=== PATIENT | male | born 1960 | race Hispanic/Latino ===

== ENCOUNTER 2019-01-19 09:11 | Inpatient (IN) | payer OTHER ==
[~2019-01-19] VITALS: Ht 170.2 cm; Wt 68.9 kg
[2019-01-19] MEDS ORDERED: SODIUM CHLORIDE 0.9% 1000ML 1,000 ML IV STA (09:23)
[2019-01-19] MEDS ORDERED: ONDANSETRON HCL INJ 2MG/ML 2ML 2 MG/ML VIAL IV STA (09:23)
[2019-01-19] MEDS ORDERED: MORPHINE SULFATE 2 MG/ML SYR 1ML IV STA (09:23)
[2019-01-19] MEDS ORDERED: PANTOPRAZOLE 40 MG 10ML VIAL IV STA (09:23)
[2019-01-19 09:52] LABS: BASOPHILS # (AUTO) 0.1 (0.0-0.1); BASOPHILS % 0.4 % (0.0-1.0); EOSINOPHILS # (AUTO) 0.1 (0.0-0.4); EOSINOPHILS % 0.4 % (0.0-6.0); HEMATOCRIT 32.8 % (38.2-49.6); HEMOGLOBIN 9.1 g/dL (14.0-18.0); LYMPHOCYTES # (AUTO) 0.6 (1.0-3.2); LYMPHOCYTES % 4.9 % (18.0-39.1); MEAN CORPUSCULAR HEMOGLOBIN 17.2 pg (28-32); MEAN CORPUSCULAR HGB CONC 27.7 g/dL (31-35); MEAN CORPUSCULAR VOLUME 62.1 fL (81-99); MONOCYTES # (AUTO) 0.9 (0.2-0.8); MONOCYTES % 7.3 % (4.4-11.3); NEUTROPHILS % 86.6 % (38.7-80.0); PLATELET COUNT 989 x10e3/uL (140-360); RED BLOOD COUNT 5.28 x10e6/uL (4.3-5.7)
--- NOTE | 2019-01-19 10:07 | Diagnostic Imaging Report ---
EXAMINATION: CHEST SINGLE (PORTABLE) INDICATION: Pain COMPARISON: None FINDINGS: LINES/TUBES:None LUNGS:The lungs are well-inflated. No focal consolidation or pulmonary edema. PLEURA:No pleural effusion or pneumothorax. MEDIASTINUM:The cardiomediastinal silhouette appears normal in size and shape. BONES/SOFT TISSUES:No acute osseous injury. ABDOMEN:No free air under the diaphragm. IMPRESSION: No focal pneumonia or pulmonary edema. Signed by: Hailey Remy MD on 01/19/2019 10:03 AM
[2019-01-19 10:10] LABS: BILIRUBIN,URINE SMALL (NEGATIVE); CLARITY,URINE SL CLOUDY (CLEAR); COLOR,URINE YELLOW (YELLOW); KETONES,URINE NEGATIVE (NEGATIVE); LEUKOCYTE ESTERASE ,URINE NEGATIVE (NEGATIVE); NITRITE,URINE NEGATIVE (NEGATIVE); PROTEIN,URINE DIPSTICK 1+ (NEGATIVE); URINE UROBILINOGEN 0.2 mg/dL (0.2 - 1)
[2019-01-19 10:11] LABS: ALBUMIN 3.4 g/dL (3.5-5.0); ALBUMIN/GLOBULIN RATIO 0.7 (0.8-2.0); ANION GAP 17.1 mmol/L (8-16); CALCIUM 8.9 mg/dL (8.4-10.2); CREATININE, SERUM 1.37 mg/dL (0.72-1.25); MAGNESIUM 2.2 MG/DL (1.3-2.1); POTASSIUM 4.1 mmol/L (3.5-5.1)
[2019-01-19 10:17] LABS: CREATINE KINASE MB 0.8 ng/mL (0-5.0)
[2019-01-19 10:20] LABS: INR 1.2; PROTHROMBIN TIME 15.8 seconds (11.9-14.5)
[2019-01-19 10:21] LABS: PARTIAL THROMBOPLASTIN TIME 45.3 seconds (23.8-35.5)
[2019-01-19 10:31] LABS: BACTERIA,URINE MANY /HPF; RBC,URINE 0-5 /HPF (0-5); WBC,URINE (MAN) 0-5 /HPF (0-5)
[2019-01-19 10:32] LABS: AMORPHOUS SEDIMENT,URINE FEW (FEW); EPITHELIAL CELLS,URINE FEW /LPF; MUCUS,URINE FEW (RARE)
--- NOTE | 2019-01-19 11:04 | Diagnostic Imaging Report ---
EXAM: Right upper quadrant abdominal ultrasound INDICATION: Right upper quadrant pain COMPARISON: None. TECHNIQUE: Transverse and longitudinal images of the right upper quadrant abdomen were obtained FINDINGS: Liver: Size: 13.4 cm in the right midclavicular line, normal Appearance: Normal echogenicity, smooth contour Mass: No focal masses Gallbladder: Sludge and gallstones in the gallbladder. No pericholecystic fluid. Negative sonographic Son's sign. Gallbladder wall measures 3.8 mm Bile Ducts: Intrahepatic Ducts: No dilatation Extrahepatic Ducts: Common bile duct measures 0.3cm, no dilatation Pancreas: Not seen due to overlying bowel gas. Kidney: The right kidney measures 9.4 cm without evidence of hydronephrosis or stone. Vessels: Aorta: Not seen due to overlying bowel gas. Inferior Vena Cava: Visualized portions are normal Main Portal Vein: 0.9 cm, normal size with hepatopetal flow. Free Fluid: No ascites or pleural effusion IMPRESSION: Cholelithiasis and gallbladder sludge. No specific sonographic evidence of cholecystitis. Signed by: Hailey Remy MD on 01/19/2019 11:01 AM
--- OUTSIDE RECORDS SUMMARY | 2019-01-19 12:32 | XMS REPORT ---
Author Author [facility] Address Unknown Phone Unavailable Care Team Providers Care Seafood Manager Name Role Phone Pablo GRAVES Unavailable Unavailable Problems This patient has no known problems. Allergies, Adverse Reactions, Alerts This patient has no known allergies or adverse reactions. Medications This patient has no known medications. Results Test Description Test Time Test Comments Text Results Atomic Results Result Comments US GALLBLADDER 2019-01-19 10:58:00 [place] [address] Patient Name: LUCAS BAIG MR #: [id number] : 1960 Age/Sex: 58/M Req #: [id number] [facility] Physician: Ordered by: CALIN GRAVES MD Report #: [id number] Location: ER Room/Bed: Procedure: [id number] US/US GALLBLADDER Exam Date: 01/19/19 Exam Time: 1019 REPORT STATUS: Signed EXAM: Right upper quadrant abdominal ultrasound INDICATI ON: Right upper quadrant pain COMPARISON: None. TECHNIQUE: Transverse and longitudinal images of the right upper quadrant abdomen were obtained FINDINGS: Liver: Size: 13.4 cm in the right midclavicular line, normal Appearance: Normal echogenicity, smooth contour Mass: No focal masses Gallbladder: Sludge and gallstones in the gallbladder. No pericholecystic fluid. Negative sonographic Son's sign. Gallbladder wall measures 3.8 mm Bile Ducts: Intrahepatic Ducts: No dilatation Extrahepatic Ducts: Common bile duct measures 0.3cm, no dilatation Pancreas: Not seen due to overlying bowel gas. Kidney: The right kidney measures 9.4 cm without evidence of hydronephrosis or stone. Vessels: Aorta: Not seen due to overlying bowel gas. Inferior Vena Cava: Visualized portions are normal Main Portal Vein: 0.9 cm, normal size with hepatopetal flow. Free Fluid: No ascites or pleural effusion IMPRESSION: Cholelithiasis and gallbladder sludge. No specific sonographic evidence of cholecystitis. Signed by: Marianna Jovel MD on 01/19/2019 11:01 AM Dictated By: MARIANNA JOVEL MD 110 Transcribed By: JANNET on 01/19/191100 COPY TO: CALIN GRAVES MD CHEST SINGLE (PORTABLE) 2019-01-19 10:03:00 [place] [address] Patient Name: LUCAS BAIG MR #: [id number] : 1960 Age/Sex: 58/M Req #: [id number] Physician: Ordered by: CALIN GRAVES MD Report #: [id number] Location: ER Room/Bed: Procedure: [id number] DX/CHEST SINGLE (PORTABLE) Exam Date: 01/19/19 Exam Time: 924 REPORT STATUS: Signed EXAMINATION: CHEST SINGLE (PORTABLE) INDIC ATION: Pain COMPARISON: None FINDINGS: LINES/TUBES:None LUNGS:The lungs are well-inflated. No focal consolidation or pulmonary edema. PLEURA:No pleural effusion or pneumothorax. MEDIASTINUM:The cardiomediastinal silhouette appears normal in size and shape. BONES/SOFT TISSUES:No acute osseous injury. ABDOMEN:No free air under the diaphragm. IMPRESSION: No focal pneumonia or pulmonary edema. Signed by: Marianna Jovel MD on 01/19/2019 10:03 AM Dictated By: MARIANNA JOVEL MD 1003 Transcribed By: JANNET on 01/19/19 1003 COPY TO: CALIN GRAVES MD
[2019-01-19] MEDS: SODIUM CHLORIDE 0.9% 1000ML 1,000 ML IV SCH ×2 (13:00→22:30)
[2019-01-19] MEDS: CEFEPIME 1GM/NS 0.9% 50 ML 50 ML IV SCH (13:00)
[2019-01-19] MEDS: ONDANSETRON HCL INJ 2MG/ML 2ML 2 MG/ML VIAL IV PRN ×2 (13:04→22:00)
[2019-01-19] MEDS: MORPHINE SULFATE INJ 4 MG/ML INJ 1ML IV PRN ×2 (13:04→22:00)
[2019-01-19 13:50] VITALS: BP 134/90
--- NOTE | 2019-01-19 14:40 | NUR ---
Recvd patient from ER, AAOx3, Resp even and unlabored, denies any chest pain or SOB, oriented to room and staffs, encouraged to use call light for any help, family at bed side, will monitor
[2019-01-19 15:21] VITALS: BP 126/84
[2019-01-19 15:41] VITALS: BP 126/84
[2019-01-19 15:57] VITALS: BP 126/84
[2019-01-19] MEDS ORDERED: FENTANYL CITRATE/PF 100MCG/2 ML INJ ONE (18:54)
[2019-01-19] MEDS ORDERED: MIDAZOLAM HCL 2 MG/2 ML VIAL ONE (18:54)
[2019-01-19 18:57] LABS: CREATINE KINASE 17 IU/L (30-200)
--- NOTE | 2019-01-19 19:05 | NUR ---
BS rounds completed with morning nurse. Pt alert and oriented to name. c/o abd pain, getting ready to go to [place] for HIDA scan. Family at BS. Will continue to monitor.
[2019-01-19 20:41] VITALS: BP 124/82
[2019-01-19 21:00] VITALS: BP 124/82
--- NOTE | 2019-01-19 21:30 | NUR ---
RETURNED FROM [place] HAVING HIDA SCAN. MEDICATED WITH MORPHINE FOR 10/[address] Loretta GERMAN AWARE OF CONSULT, WILL VISIT PT IN AM.
--- NOTE | 2019-01-19 21:34 | Diagnostic Imaging Report ---
Hepatobiliary Scan with Gallbladder Ejection Fraction Clinical information: Abdominal pain; cholelithiasis Technique: Following intravenous administration of 6.0 millicuries of Tc-99m mebrofenin, dynamic images of the abdomen in the anterior projection were obtained through 60 minutes. Sincalide (CCK analog) 1.5 micrograms was administered intravenously over 30 minutes with additional imaging for determination of gallbladder ejection fraction. Discussion: Perfusion of the liver is normal. Extraction of tracer by the liver parenchyma is mildly prolonged. Tracer appears promptly within the biliary tract. The gallbladder begins to fill by 22 minutes post injection of tracer and fills slowly but adequately. Tracer is seen in the small bowel by 36 minutes. The gallbladder ejection fraction with sincalide is 9% (normal greater than 40%). Impression: 1. Filling of the gallbladder excludes acute cystic duct obstruction/acute cholecystitis. 2. The decreased gallbladder ejection fraction of 9% supports the clinical diagnosis of chronic cholecystitis/gallbladder dyskinesia. Signed by: Dr. Jenna Ramirez M.D. on 01/19/2019 9:31 PM
[2019-01-20] VITALS (15 sets, daily range): BP systolic 98–138; BP diastolic 63–95
--- NOTE | 2019-01-20 | NUR ---
SPOKE WITH DR. Scar JETER REGARDING PAIN CONTROL. PT ABD PAIN INCREASED TO 10/10 ONE HR AFTER MORPHINE ADMIN. DR. Scar JETER D/C MORPHINE AND STARTED DILAUDID 2MG Q 3HRS, CONSULTED DR. Carolyne JETER, AND STARTED PROTONIX 40MG INJ. PT CONTINUES TO BE NPO. FAMILY AT BEDSIDE. CALL SURESH WITHIN REACH. WILL CONTINUE TO MONITOR.
[2019-01-20] MEDS: CEFEPIME 1GM/NS 0.9% 50 ML 50 ML IV SCH ×2 (00:15→12:06)
[2019-01-20] MEDS: HYDROMORPHONE 2MG/ML 2 MG/ML ML IV PRN ×3 (03:45→08:51)
[2019-01-20 05:56] LABS: BASOPHILS # (AUTO) 0.1 (0.0-0.1); BASOPHILS % 0.3 % (0.0-1.0); EOSINOPHILS % 0.1 % (0.0-6.0); HEMATOCRIT 36.2 % (38.2-49.6); HEMOGLOBIN 9.5 g/dL (14.0-18.0); LYMPHOCYTES # (AUTO) 0.4 (1.0-3.2); LYMPHOCYTES % 1.6 % (18.0-39.1); MEAN CORPUSCULAR HEMOGLOBIN 16.8 pg (28-32); MEAN CORPUSCULAR HGB CONC 26.2 g/dL (31-35); MEAN CORPUSCULAR VOLUME 64.1 fL (81-99); MONOCYTES # (AUTO) 1.8 (0.2-0.8); MONOCYTES % 6.5 % (4.4-11.3); NEUTROPHILS # (AUTO) 24.2 (2.1-6.9); RED BLOOD COUNT 5.65 x10e6/uL (4.3-5.7)
[2019-01-20 06:16] LABS: CREATINE KINASE 15 IU/L (30-200)
[2019-01-20 06:23] LABS: PLATELET COUNT 1146 x10e3/uL (140-360)
[2019-01-20 06:34] LABS: FERRITIN 5.12 ng/mL (21.81-274.66)
[2019-01-20 06:51] LABS: FOLATE 9.7 ng/mL (7.0-15.4)
--- NOTE | 2019-01-20 07:10 | NUR ---
PATIENT IS AWAKE AND IN STABLE CONDITION WITH NO S/S OF RESPIRATORY DISTRESS. PATIENT C/O 5/10 ABD PAIN BUT DOES NOT WANT PAIN MEDICATION AT THIS TIME. IFV FLUIDS INFUSING. PRESENT IN ROOM. PATIENT IS CURRENTLY NPO. CALL LIGHT IS WITHIN REACH, PATIENT INSTRUCTED TO CALL FOR ASSISTANCE NEEDED.
[2019-01-20] MEDS: SODIUM CHLORIDE 0.9% 1000ML 1,000 ML IV SCH (07:26)
[2019-01-20 07:50] LABS: ANION GAP 20.1 mmol/L (8-16); CALCIUM 8.2 mg/dL (8.4-10.2); CREATININE, SERUM 1.3 mg/dL (0.72-1.25); POTASSIUM 5.1 mmol/L (3.5-5.1)
[2019-01-20 07:52] LABS: BAND NEUTROPHILS % (MANUAL) 7 %; LYMPHOCYTES % (MANUAL) 3 % (19-48); MONOCYTES % (MANUAL) 10 % (3.4-9.0); NEUTROPHILS % (MANUAL) 80 % (40-74)
[2019-01-20 07:53] LABS: PLATELET ESTIMATE MARKEDLY INCREASED
[2019-01-20 07:54] LABS: ELLIPTOCYTE, RBC SLIGHT; HYPOCHROMASIA MODERATE; OVALOCYTES FEW; RBC MORPHOLOGY COMMENT ABNORMAL
[2019-01-20 07:55] LABS: ANISOCYTOSIS MODERATE; POIKILOCYTOSIS MODERATE
[2019-01-20 07:56] LABS: PLATELET MORPHOLOGY COMMENT MODERATE LARGE
[2019-01-20] MEDS ORDERED: DIATRIZOATE MEGL/DIATRIZOA SOD 30 ML BTL PO ONE (08:42)
[2019-01-20] MEDS: ONDANSETRON HCL INJ 2MG/ML 2ML 2 MG/ML VIAL IV PRN (08:47)
[2019-01-20] MEDS: PANTOPRAZOLE 40 MG 10ML VIAL IV SCH ×2 (08:52→20:37)
[2019-01-20] MEDS ORDERED: PANTOPRAZOLE 40 MG 10ML VIAL IV SCH ×2 (09:00)
--- NOTE | 2019-01-20 11:42 | Diagnostic Imaging Report ---
EXAM: CT Abdomen and Pelvis WITHOUT intravenous contrast INDICATION: Abdominal pain, right lower quadrant. COMPARISON: Right upper quadrant ultrasound of 01/19/2019 TECHNIQUE: Abdomen and pelvis were scanned utilizing a multidetector helical scanner from the lung base to the pubic symphysis without administration of IV contrast. Coronal and sagittal reformations were obtained. IV CONTRAST: None ORAL CONTRAST: None COMPLICATIONS: None RADIATION DOSE: Total DLP: 299.7 mGy*cm Dose modulation, iterative reconstruction, and/or weight based adjustment of the mA/kV was utilized to reduce the radiation dose to as low as reasonably achievable. FINDINGS: LOWER THORAX: Bibasilar dependent subsegmental atelectasis. HEPATOBILIARY: Nodular liver surface contour compatible with cirrhosis. No focal hepatic lesions. The gallbladder appears decompressed. Extensive abdominal portosystemic varices, not well evaluated in the absence of contrast, are compatible with portal hypertension. SPLEEN: Marked splenomegaly to 22.1 cm. PANCREAS: No focal masses or ductal dilatation. ADRENALS: No adrenal nodules. KIDNEYS/URETERS: No hydronephrosis, stones, or solid mass lesions. PELVIC ORGANS/BLADDER: Unremarkable. PERITONEUM / RETROPERITONEUM: Small volume ascites throughout the abdomen and pelvis. LYMPH NODES: No lymphadenopathy. VESSELS: Unremarkable. GI TRACT: The appendix is not well visualized, however there are inflammatory changes including fat stranding and free fluid in the right lower quadrant with adjacent loops of small bowel demonstrating wall thickening. These are likely to represent secondary findings of appendicitis. No free air or drainable abscess. BONES AND SOFT TISSUES: Unremarkable. IMPRESSION: 1. Inflammatory changes in the right lower quadrant including fat stranding, free fluid, and loops of small bowel with wall thickening likely represent secondary findings of appendicitis. No free air or drainable abscess. 2. Nodular liver surface contour compatible with cirrhosis. Abdominal portosystemic varices and massive splenomegaly to 22.1 cm are consistent with sequela of portal hypertension. 3. The gallbladder appears decompressed on this study, but is better evaluated on the recent PET upper quadrant ultrasound of 01/19/2019 which demonstrates gallstones and sludge. Signed by: Hailey Remy MD on 01/20/2019 11:39 AM
--- NOTE | 2019-01-20 12:28 | NUR ---
PATIENT OFF THE UNIT TO OR FOR PROCEDURE- PATIENT IN STABLE CONDITION WITH NO S/S OF RESPIRATORY DISTRESS. IV ANTIBIOTIC INFUSING. FAMILY PRESENT.
[2019-01-20] MEDS ORDERED: BUPIVACAINE 0.5%/EPI 30 ML SDV INJ ONE (12:55)
[2019-01-20] MEDS ORDERED: HEPARIN SOD (PORCINE) 5,000 UNIT/ML VIAL ONE (13:40)
[2019-01-20] MEDS ORDERED: HEPARIN 25,000 UNIT DRIP IV ONE (15:29)
[2019-01-20] MEDS: HEPARIN 25,000 UNIT 25,000 UNIT in DEXTROSE 5% 250ML 250 ML IV SCH (15:50)
[2019-01-20] MEDS: SODIUM CHLORIDE 0.9% 250ML IRRIG IR SCH ×3 (15:56→22:21)
[2019-01-20] MEDS: DEXTROSE 5%/LACTATED RINGERS 1,000 ML IV SCH ×2 (15:56→23:30)
[2019-01-20] MEDS: PROPOFOL IV EMULSION 10MG/ML 100 ML IV SCH (15:57)
[2019-01-20] MEDS: PIPER-TAZ 3.375 GM 50 ML IV SCH ×2 (18:06→23:30)
[2019-01-20] MEDS ORDERED: LIDOCAINE HCL 2% LOCAL INJ 5 ML SDV VIAL INJ ONE (18:32)
[2019-01-20] MEDS ORDERED: SUCCINYLCHOLINE 200 MG/10 ML SYR ONE (18:32)
[2019-01-20] MEDS ORDERED: DEXAMETHASONE SOD PHOS INJ 4 MG/ML VIAL ONE (18:32)
[2019-01-20] MEDS ORDERED: PROPOFOL IV EMULSION 10 MG/ML 20 ML VIAL ONE (18:32)
[2019-01-20] MEDS ORDERED: ONDANSETRON HCL INJ 2MG/ML 2ML 2 MG/ML VIAL ONE (18:32)
[2019-01-20] MEDS ORDERED: PHENYLEPHRINE HCL 1% 10 MG/ML VIAL ONE (18:32)
[2019-01-20] MEDS ORDERED: EPHEDRINE SULFATE INJ 50 MG/10 ML SYR ONE (18:32)
[2019-01-20] MEDS ORDERED: SEVOFLURANE INHAL SOLN 250 ML PEN BTL ONE (18:32)
[2019-01-20] MEDS: ANAGRELIDE HCL 0.5 MG CAP PO SCH ×2 (20:37→22:20)
--- NOTE | 2019-01-20 20:48 | NUR ---
@[address] GERMAN OF PTT OF 60.3. HE SAID TO KEEP THE HEPARIN AT THE SAME RATE WILL CONTINUE TO MONITOR
[2019-01-21] VITALS (22 sets, daily range): BP systolic 106–148; BP diastolic 64–94
--- NOTE | 2019-01-21 00:05 | Diagnostic Imaging Report ---
EXAMINATION: CHEST SINGLE (PORTABLE) INDICATION: Endotracheal tube placement. COMPARISON: 01/19/2019. FINDINGS: LINES/TUBES:ET tube with distal tip approximately 4.2 cm proximal to the liudmila. An NG/orogastric tube with distal portion coiled within the stomach, with distal tip not included, likely in the antrum. LUNGS:Bibasilar subsegmental atelectasis. No focal consolidation or pulmonary edema. PLEURA:No pleural effusion or pneumothorax. MEDIASTINUM:The cardiomediastinal silhouette appears normal in size and shape. BONES/SOFT TISSUES:No acute osseous injury. ABDOMEN:Hyperlucency in the left upper abdomen is nonspecific may be related to dilated bowel loops. IMPRESSION: ET tube with distal tip approximately 4.2 cm proximal to the liudmila. An NG/orogastric tube with distal portion coiled within the stomach, with distal tip not included, likely in the antrum. Signed by: Dr. Erica Reyes M.D. on 01/21/2019 12:01 AM
[2019-01-21] MEDS: HYDROMORPHONE 1MG/1ML INJ IV PRN ×5 (00:30→21:53)
[2019-01-21] MEDS ORDERED: DEXTROSE 50% SYRINGE 50 ML IV PRN (01:00)
--- NOTE | 2019-01-21 01:20 | Consultation ---
DATE OF CONSULTATION: 01/20/2019 Pulmonary Medicine Consult REASON FOR REFERRAL: Respiratory insufficiency. HISTORY OF PRESENT ILLNESS: Mr. Alvarez is a 58-year-old gentleman with respiratory insufficiency. The patient presented to [facility] on January 19, 2019. The patient had abdominal pain. Onset was 1 week previous. The patient had no recent history of any significant abdominal issues. The patient with gallbladder ultrasound showing sludge and stones. HIDA scan with 9% ejection fraction, but there was filling of the gallbladder. Abdominal pelvic CT demonstrated findings consistent with right lower quadrant inflammation, nodular liver consistent with cirrhosis, and 22.1 cm spleen. Due to extensive symptoms are not improving, the patient went for operative exploration. Exploratory laparotomy was performed with small bowel obstruction. Estimated blood loss was 100 mL. Findings include mesenteric vein thrombosis and one-half of the small bowel was being gangrenous, also some lymphadenopathy in the abdomen. The patient had other findings including platelets counts, which was 1146 upon admission. PAST MEDICAL HISTORY: Hyperlipidemia, GERD, possible fatty liver in the past. MEDICATIONS: Medication list reviewed per the chart record. ALLERGIES: IODINE. SOCIAL HISTORY: No smoking. No drinking. No drugs. The patient worked in [employer]. FAMILY HISTORY: Noncontributory to this. REVIEW OF SYSTEMS: Cannot get as he is intubated orally. OBJECTIVE: VITAL SIGNS: Afebrile, vital signs noted, reviewed per the chart record. GENERAL: In no acute distress, he awakens on ventilator on light stimuli. HEENT: Normocephalic and atraumatic. NECK: Supple. Throat midline. LUNGS: Bilateral air entry, mostly clear. CARDIOVASCULAR: S1 and S2. No murmurs, rubs, or gallops. ABDOMEN: Soft, but he is postoperative with bandage in place vertically on his abdomen. EXTREMITIES: No clubbing, no cyanosis, no edema. INTEGUMENT: No rash or purpura. LABORATORY DATA: Labs reviewed per the chart record include white count 27, hematocrit 36, platelets 114. Potassium 5.1, BUN 24, creatinine 1.3. Bicarbonate 17. INR 1.2, PTT 60. Chest radiography was clear preoperatively. Other abdominal imaging per other segments of this history. IMPRESSION AND PLAN: 1. Postoperative respiratory insufficiency. 2. Elevated creatinine, chronic kidney disease versus acute kidney injury. 3. Metabolic acidosis. 4. Possible evolving hyperkalemia. 5. 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 7. Other nonspecific abdominal lymphadenopathy. 8. Postoperative state, status post exploratory laparotomy and small bowel obstruction, small bowel resection. 9. Possible cirrhosis. 10. Massive splenomegaly. 11. Hyperlipidemia. 12. Gastroesophageal reflux disease. The patient has metabolic acidosis and possible kidney dysfunction. We will follow urine output closely. Check blood gas. Sedate him as needed. Check chest x-ray for ET tube position. Check lipid panel including triglycerides. The patient is not expected to come off ventilator today, but we will reassess. The patient for consideration of repeat surgery on Wednesday. We will consider if he gets extubated or stays intubated in the meantime. Thank you very much, Dr. Moura and Dr. Lloyd, for allowing me a chance to participate in the care of Mr. Alvarez. Please call for questions. MD JESUS Bustillos/CYNTHIA /[id number]
[2019-01-21] MEDS: PROPOFOL IV EMULSION 10MG/ML 100 ML IV SCH ×3 (02:35→21:48)
[2019-01-21] MEDS: SODIUM CHLORIDE 0.9% 250ML IRRIG IR SCH ×6 (04:10→23:47)
[2019-01-21 05:12] LABS: BASOPHILS % 0.1 % (0.0-1.0); HEMATOCRIT 26.9 % (38.2-49.6); HEMOGLOBIN 7.3 g/dL (14.0-18.0); LYMPHOCYTES # (AUTO) 0.7 (1.0-3.2); LYMPHOCYTES % 5.1 % (18.0-39.1); MEAN CORPUSCULAR HEMOGLOBIN 17.1 pg (28-32); MEAN CORPUSCULAR HGB CONC 27.1 g/dL (31-35); MEAN CORPUSCULAR VOLUME 63.1 fL (81-99); MONOCYTES # (AUTO) 1.8 (0.2-0.8); MONOCYTES % 12.4 % (4.4-11.3); NEUTROPHILS % 81.7 % (38.7-80.0); PLATELET COUNT 456 x10e3/uL (140-360); RED BLOOD COUNT 4.26 x10e6/uL (4.3-5.7); RED CELL DISTRIBUTION WIDTH 19.2 % (11.7-14.4)
[2019-01-21] MEDS: PIPER-TAZ 3.375 GM 50 ML IV SCH ×4 (05:32→23:48)
[2019-01-21] MEDS: INSULIN LISPRO 100 UNIT/1 ML 3ML VIAL SQ SCH ×4 (05:32→23:48)
[2019-01-21 05:40] LABS: CHOL/HDL RATIO 3.9 (3.9-4.7)
[2019-01-21 05:44] LABS: ALBUMIN 2.2 g/dL (3.5-5.0); ALBUMIN/GLOBULIN RATIO 0.7 (0.8-2.0); CALCIUM 7.5 mg/dL (8.4-10.2); CREATININE, SERUM 1.34 mg/dL (0.72-1.25)
[2019-01-21 06:12] LABS: ABG HCO3 20 mmol/L (23-28); ABG PCO2 33 mmHg (41-51); ABG PH 7.39 (7.31-7.41); ABG PO2 116 mmHg (80-105)
--- NOTE | 2019-01-21 06:52 | NUR ---
NOTIFIED DR GRUBBS ANSWERING SERVICE OF THE CONSULT
[2019-01-21 07:14] LABS: ANISOCYTOSIS SLIGHT; BAND NEUTROPHILS % (MANUAL) 1 %; ELLIPTOCYTE, RBC MODERATE; LYMPHOCYTES % (MANUAL) 6 % (19-48); MONOCYTES % (MANUAL) 6 % (3.4-9.0); NEUTROPHILS % (MANUAL) 87 % (40-74); POIKILOCYTOSIS SLIGHT
[2019-01-21 07:15] LABS: HYPOCHROMASIA MODERATE; PLATELET ESTIMATE ADEQUATE; POLYCHROMASIA FEW; RBC MORPHOLOGY COMMENT ABNORMAL; TEAR DROP CELLS FEW
[2019-01-21 07:16] LABS: TOXIC GRANULATION SLIGHT
[2019-01-21] MEDS ORDERED: HEPARIN SOD/SOD CHLORIDE 1,000 ML IV SCH ×3 (08:45→09:00)
[2019-01-21] MEDS: ANAGRELIDE HCL 0.5 MG CAP PO SCH ×4 (09:00→20:44)
[2019-01-21] MEDS: PANTOPRAZOLE 40 MG 10ML VIAL IV SCH ×2 (09:00→20:44)
[2019-01-21] MEDS: IRON SUCROSE 100 MG in SODIUM CHLORIDE 0.9% 100 ML 100 ML IV SCH (09:00)
[2019-01-21] MEDS: LACTATED RINGER'S 1,000 ML IV SCH ×3 (10:31→19:34)
[2019-01-21 11:30] LABS: ANION GAP 10.9 mmol/L (8-16); BLOOD UREA NITROGEN 26 mg/dL (7-26); BUN/CREATININE RATIO 21 (6-25); CALCIUM 7.6 mg/dL (8.4-10.2); CARBON DIOXIDE 23 mmol/L (22-29); CHLORIDE 113 mmol/L (98-107); CREATININE, SERUM 1.21 mg/dL (0.72-1.25); EST GLOMERULAR FILTRATION RATE > 60 ML/MIN (60-); GLUCOSE 134 mg/dL (74-118); MAGNESIUM 2.1 MG/DL (1.3-2.1); PHOSPHORUS 1.4 MG/DL (2.3-4.7); POTASSIUM 3.9 mmol/L (3.5-5.1); SODIUM 143 mmol/L (136-145)
--- NOTE | 2019-01-21 13:00 | NUR ---
Nutrition Intervention Note RD Recommendation(s) for Physician: Place central line and start standard PN 30% dextrose/8.5% amino acids at 70ml/hr Plan of Care: RD following, monitoring for tolerance and adequacy Nutrition reason for involvement: Nutrition Risk Trigger- [facility] RD Assessment Initial encounter with Pt. Pt was not able to provide a nutrition Hx due to being sedated and orally intubated on mechanical ventilation. Daughter present. 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 No known food allergies. Cholelithiasis, SBO/gangrene of small bowel, S/P exploratory laparotomy with cholecystectomy, appendectomy, and small bowel resection. NGT in place. Principal Problems/Diagnoses: Anemia, cholelithiasis, renal insufficiency PMH:GERD, hyperlipidemia, Fatty Liver. GI: unable to assess Skin:surgical abdominal wound Labs: (01/21/19) Biochemical data reviewed Meds: (01/21/19) Lactated Ringers at 125ml/hr, propofol provides 1.1 sesar/ml infused Ht:67 in. Wt:148.19lbs BMI:23.2kg/M2 IBW:148lbs Malnutrition Evaluation (01/21/19) The patient does not meet criteria for a specified degree of malnutrition at this time. Will re-evaluate at follow-up as appropriate. Nutrition Prescription (Diet Order):NPO Estimated Nutritional Needs: 1684 2020 calories/day ( 25-30kcal/kg/ BW) 67-101g protein/day ( 1-1.5g pro/kg/BW) Diet Adequacy: Not meeting calorie needs, Not meeting protein needs) Diet Education Needs Assessment: Diet education not indicated Nutrition Care Level: High Nutrition Diagnosis: Altered GI function related to cholelithiasis as evidenced by SBO/Exploratory laparotomy. Goal: Patient will meet 75-100% of estimated needs by follow up Progress: Not Progressing Interventions: Composition, Rate, Route, IVF, Prescription medications, Monitoring/Evaluation: Total energy intake, Total protein intake, Formula/Solution, IVF, Prescription medication, Weight change. Signed: Celestino Martinez RD, LD, [facility]
--- NOTE | 2019-01-21 15:10 | NUR ---
Pulmonary Medicine DATE OF ENCOUNTER: 01/21/2019 SUBJECTIVE: On ventilator [facility] 14/450/40/5. pk 19, rr 23, MV 10 L/min intubated orally with 7.5 ETT, 22 cm propofol 70/hr. Glucose control is fair. UOP sustained, 750/shift already heparin IV REVIEW OF SYSTEMS: Cannot get as he is intubated orally. OBJECTIVE: VITAL SIGNS: vital signs noted, reviewed per the chart record. GENERAL: RASS -2 / better, no distress HEENT: Normocephalic and atraumatic. NECK: Supple. Throat midline. LUNGS: Bilateral air entry, mostly clear. CARDIOVASCULAR: S1 and S2. No murmurs, rubs, or gallops. ABDOMEN: Soft, but he is postoperative with bandage in place vertically on his abdomen. EXTREMITIES: No clubbing, no cyanosis, no edema. INTEGUMENT: No rash or purpura. LABORATORY DATA: 3.9 k , co2 23, cr 1.21, wbc 14.6, hct 26.9, plt 456, phos 1.4 Chest radiography with clear lungs. ETT 5.5 cm above liudmila IMPRESSION AND PLAN: 1. Postoperative respiratory insufficiency. 2. Elevated creatinine, chronic kidney disease versus acute kidney injury. Stable 3. Metabolic acidosis, improved 4. Mild toxic/metabolic encephalopathy 5. 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 7. Other nonspecific abdominal lymphadenopathy. 8. Postoperative state, s/p exploratory laparotomy and small bowel resection. 9. Possible cirrhosis. 10. Massive splenomegaly. 11. Hyperlipidemia. 12. Gastroesophageal reflux disease. 13. thrombocytosis 14. low phos Continue sedation to goal ~RASS -2, d/w nursing. Leverage other medications, not just propofol. Follow UOP, better As patient is pulling at his ETT, we will advance it slightly and consider mechanical restraints Continue intubated state, ventilator support Heparin IV per designated Glucose control Thank you very much, Dr. Moura and Dr. Lloyd, for allowing me a chance to participate in the care of Mr. Alvarez. Please call for questions.
[2019-01-21] MEDS: HEPARIN 25,000 UNIT 25,000 UNIT in DEXTROSE 5% 250ML 250 ML IV SCH (15:15)
[2019-01-21] MEDS ORDERED: POTASSIUM PHOSPHATE 20 MM in SODIUM CHLORIDE 0.9% 250ML 250 ML IV ONE (16:30)
[2019-01-21 16:52] LABS: BASOPHILS % 0.1 % (0.0-1.0); HEMATOCRIT 26.6 % (38.2-49.6); LYMPHOCYTES # (AUTO) 0.8 (1.0-3.2); LYMPHOCYTES % 5.5 % (18.0-39.1); MEAN CORPUSCULAR HEMOGLOBIN 17.1 pg (28-32); MEAN CORPUSCULAR HGB CONC 27.1 g/dL (31-35); MONOCYTES # (AUTO) 1.2 (0.2-0.8); MONOCYTES % 9.1 % (4.4-11.3); NEUTROPHILS # (AUTO) 11.5 (2.1-6.9); NEUTROPHILS % 84.4 % (38.7-80.0); PLATELET COUNT 388 x10e3/uL (140-360); RED BLOOD COUNT 4.22 x10e6/uL (4.3-5.7); RED CELL DISTRIBUTION WIDTH 19.3 % (11.7-14.4)
[2019-01-21 16:57] LABS: HEMOGLOBIN 7.2 g/dL (14.0-18.0)
[2019-01-21 18:23] LABS: ANION GAP 11.8 mmol/L (8-16); BLOOD UREA NITROGEN 23 mg/dL (7-26); BUN/CREATININE RATIO 20 (6-25); CALCIUM 7.6 mg/dL (8.4-10.2); CARBON DIOXIDE 23 mmol/L (22-29); CHLORIDE 112 mmol/L (98-107); CREATININE, SERUM 1.14 mg/dL (0.72-1.25); EST GLOMERULAR FILTRATION RATE > 60 ML/MIN (60-); GLUCOSE 116 mg/dL (74-118); POTASSIUM 3.8 mmol/L (3.5-5.1); SODIUM 143 mmol/L (136-145)
[2019-01-21 20:47] LABS: LYMPHOCYTES % (MANUAL) 1 % (19-48); MONOCYTES % (MANUAL) 15 % (3.4-9.0); NEUTROPHILS % (MANUAL) 84 % (40-74)
[2019-01-21 20:52] LABS: ANISOCYTOSIS SLIGHT
[2019-01-21 20:56] LABS: PLATELET ESTIMATE ADEQUATE
[2019-01-21 20:58] LABS: HYPOCHROMASIA MODERATE; PLATELET MORPHOLOGY COMMENT FEW GIANT
[2019-01-22] VITALS (26 sets, daily range): BP systolic 107–129; BP diastolic 59–76
[2019-01-22] MEDS: HYDROMORPHONE 1MG/1ML INJ IV PRN ×3 (01:54→16:35)
[2019-01-22] MEDS: SODIUM CHLORIDE 0.9% 250ML IRRIG IR SCH ×6 (03:20→23:19)
[2019-01-22 05:15] LABS: BASOPHILS % 0.3 % (0.0-1.0); EOSINOPHILS % 0.4 % (0.0-6.0); HEMATOCRIT 23.5 % (38.2-49.6); LYMPHOCYTES # (AUTO) 0.8 (1.0-3.2); LYMPHOCYTES % 7.5 % (18.0-39.1); MEAN CORPUSCULAR HEMOGLOBIN 17.2 pg (28-32); MEAN CORPUSCULAR HGB CONC 27.2 g/dL (31-35); MONOCYTES # (AUTO) 0.8 (0.2-0.8); MONOCYTES % 7.6 % (4.4-11.3); NEUTROPHILS # (AUTO) 8.3 (2.1-6.9); NEUTROPHILS % 82.8 % (38.7-80.0); PLATELET COUNT 369 x10e3/uL (140-360); RED BLOOD COUNT 3.73 x10e6/uL (4.3-5.7); RED CELL DISTRIBUTION WIDTH 19.1 % (11.7-14.4)
[2019-01-22] MEDS: INSULIN LISPRO 100 UNIT/1 ML 3ML VIAL SQ SCH ×3 (06:00→18:00)
[2019-01-22 06:08] LABS: HEMOGLOBIN 6.4 g/dL (14.0-18.0)
[2019-01-22 06:17] LABS: PHOSPHORUS 2.3 MG/DL (2.3-4.7)
[2019-01-22] MEDS: PIPER-TAZ 3.375 GM 50 ML IV SCH ×3 (06:29→18:06)
--- NOTE | 2019-01-22 08:20 | Diagnostic Imaging Report ---
EXAMINATION: CHEST SINGLE (PORTABLE) INDICATION: Endotracheal tube placement. COMPARISON: 01/19/2019. FINDINGS: LINES/TUBES:ET tube with distal tip approximately 3.0 cm proximal to the liudmila. An NG/orogastric tube with distal portion coiled within the stomach, with distal tip not included, likely in the antrum. LUNGS:Bibasilar subsegmental atelectasis. No focal consolidation or pulmonary edema. PLEURA: Bilateral small pleural effusions. No pneumothorax. MEDIASTINUM:The cardiomediastinal silhouette appears normal in size and shape. BONES/SOFT TISSUES:No acute osseous injury. ABDOMEN:Hyperlucency in the left upper abdomen is nonspecific may be related to dilated bowel loops. IMPRESSION: Stable examination. Signed by: Dr. Erica Reyes M.D. on 01/22/2019 8:16 AM
[2019-01-22] MEDS ORDERED: HEPARIN 25,000 UNIT DRIP IV ONE ×2 (08:29→08:40)
[2019-01-22 08:33] LABS: ALANINE AMINOTRANSFERASE 12 IU/L (0-55); ALBUMIN/GLOBULIN RATIO 0.6 (0.8-2.0); ALKALINE PHOSPHATASE 90 IU/L (40-150); AMYLASE 37 U/L (25-125); BLOOD UREA NITROGEN 22 mg/dL (7-26); BUN/CREATININE RATIO 20 (6-25); CALCIUM 7.4 mg/dL (8.4-10.2); CARBON DIOXIDE 23 mmol/L (22-29); CHLORIDE 113 mmol/L (98-107); CREATININE, SERUM 1.08 mg/dL (0.72-1.25); EST GLOMERULAR FILTRATION RATE > 60 ML/MIN (60-); GLUCOSE 102 mg/dL (74-118); SODIUM 143 mmol/L (136-145)
[2019-01-22] MEDS: PANTOPRAZOLE 40 MG 10ML VIAL IV SCH ×2 (09:33→21:32)
[2019-01-22] MEDS: IRON SUCROSE 100 MG in SODIUM CHLORIDE 0.9% 100 ML 100 ML IV SCH (09:33)
[2019-01-22] MEDS: ANAGRELIDE HCL 0.5 MG CAP PO SCH ×4 (09:33→21:32)
[2019-01-22] MEDS ORDERED: NOREPINEPHRINE 8 MG/D5W 250 ML 250 ML ONE (10:42)
[2019-01-22 12:59] LABS: BAND NEUTROPHILS % (MANUAL) 6 %; EOSINOPHILS % (MANUAL) 1 % (0-7); LYMPHOCYTES % (MANUAL) 12 % (19-48); MONOCYTES % (MANUAL) 7 % (3.4-9.0)
[2019-01-22 13:00] LABS: NEUTROPHILS % (MANUAL) 74 % (40-74); PLATELET ESTIMATE SLIGHTLY INCREASED; PLATELET MORPHOLOGY COMMENT NORMAL; POLYCHROMASIA FEW
[2019-01-22 13:01] LABS: HYPOCHROMASIA SLIGHT; OVALOCYTES FEW; RBC MORPHOLOGY COMMENT ABNORMAL; SCHISTOCYTES FEW
[2019-01-22] MEDS: LACTATED RINGER'S 1,000 ML IV SCH ×2 (14:03→16:35)
[2019-01-22] MEDS: HEPARIN 25,000 UNIT 25,000 UNIT in DEXTROSE 5% 250ML 250 ML IV SCH (15:15)
--- NOTE | 2019-01-22 15:35 | NUR ---
Pulmonary Medicine DATE OF ENCOUNTER: 01/22/2019 SUBJECTIVE: on ventilator still 14/450/40/5, MV 7/, RR 16, pk 18 small airway secretions on suction propofol 40/, intermittent IV dilaudid CXR with mild venous congestion pattern, min effusions anemia ~ stable, low/low normal hb REVIEW OF SYSTEMS: Cannot get as he is intubated orally. OBJECTIVE: VITAL SIGNS: vital signs noted, reviewed per the chart record. GENERAL: RASS -2 , no distress HEENT: Normocephalic and atraumatic. NECK: Supple. Throat midline. LUNGS: Bilateral air entry, mostly clear. CARDIOVASCULAR: S1 and S2. No murmurs, rubs, or gallops. ABDOMEN: Soft, but he is postoperative with bandage in place vertically on his abdomen. EXTREMITIES: No clubbing, no cyanosis, no edema. INTEGUMENT: No rash or purpura. LABORATORY DATA: k 4.0, cr 1.08, 10 wbc, 23.5 hct, hb 6.4, plt 369, alb 2.0 IMPRESSION AND PLAN: 1. Postoperative respiratory insufficiency. 2. Elevated creatinine, chronic kidney disease versus acute kidney injury. Stable 3. Metabolic acidosis, improved 4. Mild toxic/metabolic encephalopathy 5. 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 7. Other nonspecific abdominal lymphadenopathy. 8. Postoperative state, s/p exploratory laparotomy and small bowel resection. 9. Possible cirrhosis. 10. Massive splenomegaly. 11. Hyperlipidemia. 12. Gastroesophageal reflux disease. 13. thrombocytosis 14. anemia Continue sedation to goal ~RASS -2. propofol + intermittent opiates are doing well so far. Follow UOP Continue intubated state, ventilator support Heparin IV per designated, jehovahs witness blood conservation strategies per hematology Glucose control probable OR tomorrow for re-exploration to ensure viability Thank you very much, Dr. Moura and Dr. Lloyd, for allowing me a chance to participate in the care of Mr. Alvarez. Please call for questions.
[2019-01-22] MEDS: PROPOFOL IV EMULSION 10MG/ML 100 ML IV SCH (23:21)
[2019-01-23] VITALS (26 sets, daily range): BP systolic 99–124; BP diastolic 61–81
[2019-01-23] MEDS: PIPER-TAZ 3.375 GM 50 ML IV SCH ×2 (00:15→05:51)
[2019-01-23] MEDS: LACTATED RINGER'S 1,000 ML IV SCH ×2 (00:17→08:02)
[2019-01-23] MEDS ORDERED: PANTOPRAZOLE 40 MG 10ML VIAL IV STA (03:56)
[2019-01-23] MEDS ORDERED: PANTOPRAZOL 40MG/SOD CHL 0.9% 250 ML IV SCH (04:00)
[2019-01-23 05:22] LABS: BASOPHILS % 0.3 % (0.0-1.0); EOSINOPHILS # (AUTO) 0.1 (0.0-0.4); EOSINOPHILS % 1.1 % (0.0-6.0); HEMATOCRIT 22.4 % (38.2-49.6); LYMPHOCYTES # (AUTO) 0.6 (1.0-3.2); LYMPHOCYTES % 7.3 % (18.0-39.1); MEAN CORPUSCULAR HEMOGLOBIN 17.1 pg (28-32); MEAN CORPUSCULAR HGB CONC 27.2 g/dL (31-35); MEAN CORPUSCULAR VOLUME 62.9 fL (81-99); MONOCYTES # (AUTO) 0.6 (0.2-0.8); MONOCYTES % 7.7 % (4.4-11.3); NEUTROPHILS # (AUTO) 6.5 (2.1-6.9); NEUTROPHILS % 82.3 % (38.7-80.0); PLATELET COUNT 367 x10e3/uL (140-360); RED BLOOD COUNT 3.56 x10e6/uL (4.3-5.7); RED CELL DISTRIBUTION WIDTH 19.2 % (11.7-14.4)
[2019-01-23 05:33] LABS: HEMOGLOBIN 6.1 g/dL (14.0-18.0)
[2019-01-23 05:35] LABS: ALANINE AMINOTRANSFERASE 14 IU/L (0-55); ALBUMIN 1.9 g/dL (3.5-5.0); ALBUMIN/GLOBULIN RATIO 0.6 (0.8-2.0); ALKALINE PHOSPHATASE 85 IU/L (40-150); AMYLASE 37 U/L (25-125); ANION GAP 11.7 mmol/L (8-16); BLOOD UREA NITROGEN 18 mg/dL (7-26); BUN/CREATININE RATIO 19 (6-25); CALCIUM 7.6 mg/dL (8.4-10.2); CARBON DIOXIDE 24 mmol/L (22-29); CHLORIDE 106 mmol/L (98-107); CREATININE, SERUM 0.94 mg/dL (0.72-1.25); EST GLOMERULAR FILTRATION RATE > 60 ML/MIN (60-); GLUCOSE 96 mg/dL (74-118); POTASSIUM 3.7 mmol/L (3.5-5.1); SODIUM 138 mmol/L (136-145)
[2019-01-23] MEDS: SODIUM CHLORIDE 0.9% 250ML IRRIG IR SCH ×5 (05:50→22:21)
[2019-01-23] MEDS: INSULIN LISPRO 100 UNIT/1 ML 3ML VIAL SQ SCH ×2 (06:00)
[2019-01-23] MEDS: PROPOFOL IV EMULSION 10MG/ML 100 ML IV SCH ×3 (06:20→19:38)
--- NOTE | 2019-01-23 06:32 | Diagnostic Imaging Report ---
EXAMINATION: CHEST SINGLE (PORTABLE) INDICATION: Intubated. COMPARISON: 01/22/2019. FINDINGS: LINES/TUBES:ET tube with distal tip approximately 3.5 cm proximal to the liudmila. An NG/orogastric tube with distal portion coiled within the stomach, with distal tip not included. LUNGS:Bibasilar subsegmental atelectasis. No focal consolidation or pulmonary edema. PLEURA: Bilateral small pleural effusions. No pneumothorax. MEDIASTINUM:The cardiomediastinal silhouette appears normal in size and shape. BONES/SOFT TISSUES:No acute osseous injury. ABDOMEN: No definite pneumothorax. IMPRESSION: No significant interval change in bilateral small pleural effusions and bibasilar subsegmental atelectasis. Signed by: Dr. Erica Reyes M.D. on 01/23/2019 6:29 AM
[2019-01-23 08:18] LABS: BAND NEUTROPHILS % (MANUAL) 3 %; LYMPHOCYTES % (MANUAL) 9 % (19-48); MONOCYTES % (MANUAL) 8 % (3.4-9.0); NEUTROPHILS % (MANUAL) 79 % (40-74); NUCLEATED RED BLOOD CELLS 1
[2019-01-23 08:19] LABS: ANISOCYTOSIS SLIGHT; ELLIPTOCYTE, RBC SLIGHT; OVALOCYTES FEW; POIKILOCYTOSIS MODE; RBC MORPHOLOGY COMMENT ABNORMAL
[2019-01-23 08:20] LABS: HYPOCHROMASIA MODE; PLATELET ESTIMATE SLIGHTLY INCREASED; PLATELET MORPHOLOGY COMMENT FEW LARGE; POLYCHROMASIA FEW
[2019-01-23] MEDS: ANAGRELIDE HCL 0.5 MG CAP PO SCH ×3 (09:00→17:56)
[2019-01-23] MEDS ORDERED: DEXTROSE 5%/0.9% SOD CHL 1,000 ML IV ONE (10:06)
[2019-01-23] MEDS: IRON SUCROSE 100 MG in SODIUM CHLORIDE 0.9% 100 ML 100 ML IV SCH (10:16)
[2019-01-23] MEDS ORDERED: DEXTROSE 5%/0.9% SOD CHL 1,000 ML IV SCH (10:30)
--- NOTE | 2019-01-23 11:27 | NUR ---
pt transferred to OR via bed with OR nurse x 2 and anesthesiology chef's assistant. family in room during transfer. family going to wait in OR waiting room
[2019-01-23] MEDS ORDERED: CEFTRIAXONE SOD 1 GM/NS 50 ML 50 ML IV SCH (13:15)
[2019-01-23] MEDS ORDERED: HEPARIN SOD (PORCINE) 1000 UNIT/ML SDV ONE (13:28)
--- NOTE | 2019-01-23 13:28 | NUR ---
administered heparin 2000u bolus x [address] Alexis Lloyd order on return from OR
[2019-01-23] MEDS: HEPARIN 25,000 UNIT 25,000 UNIT in DEXTROSE 5% 250ML 250 ML IV SCH (13:46)
[2019-01-23] MEDS ORDERED: FENTANYL CITRATE/PF 100MCG/2 ML INJ ONE (14:38)
[2019-01-23] MEDS ORDERED: MIDAZOLAM HCL 2 MG/2 ML VIAL ONE (14:38)
[2019-01-23] MEDS: PANTOPRAZOL 40MG/SOD CHL 0.9% 50 ML IV SCH ×2 (15:30→19:38)
[2019-01-23] MEDS: DEXTROSE 5%/LACTATED RINGERS 1,000 ML IV SCH (17:06)
[2019-01-23] MEDS ORDERED: ACETAMINOPHEN 1000 MG/100 ML IV ONE (18:29)
[2019-01-23] MEDS ORDERED: ROCURONIUM BROMIDE 10 MG/ML 5ML VIAL ONE (18:29)
[2019-01-23] MEDS ORDERED: ONDANSETRON HCL INJ 2MG/ML 2ML 2 MG/ML VIAL ONE (18:29)
[2019-01-23] MEDS ORDERED: SEVOFLURANE INHAL SOLN 250 ML PEN BTL ONE (18:29)
[2019-01-23] MEDS ORDERED: IRON DEXTRAN INJ 500 MG in SODIUM CHLORIDE 0.9% 500ML 500 ML IV ONE (20:00)
[2019-01-23] MEDS: EPOETIN ALFA 10000 UNIT/ML VIAL SC SCH (20:27)
--- NOTE | 2019-01-23 21:19 | NUR ---
Pulmonary Medicine DATE OF ENCOUNTER: 01/23/2019 SUBJECTIVE: patient went for surgery. ~2 hr 10 min anesthesia time. had SB anastomosis + liver bx with no surprise findings borderline UOP 30 cc/hr so far heparin iv started IVF 100/hr propofol 61/ fio2 60% on ventilator he awakened after surgery REVIEW OF SYSTEMS: Cannot get as he is intubated orally. OBJECTIVE: VITAL SIGNS: vital signs noted, reviewed per the chart record. GENERAL: RASS -2, no distress HEENT: Normocephalic and atraumatic. NECK: Supple. Throat midline. LUNGS: Bilateral air entry, mostly clear. CARDIOVASCULAR: S1 and S2. No murmurs, rubs, or gallops. ABDOMEN: Soft, but he is postoperative with bandage in place vertically on his abdomen. EXTREMITIES: No clubbing, no cyanosis, no edema. INTEGUMENT: No rash or purpura. LABORATORY DATA: 3.7 k, cr .94. wbc 7.91, 22 hct. 367 plt. IMPRESSION AND PLAN: 1. Postoperative respiratory insufficiency. 2. Elevated creatinine, acute kidney injury. Improved 3. 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 7. Other nonspecific abdominal lymphadenopathy. 8. Postoperative state, s/p exploratory laparotomy and small bowel resection. 9. Possible cirrhosis. 10. Massive splenomegaly. 11. Hyperlipidemia. 12. Gastroesophageal reflux disease. 13. thrombocytosis 14. anemia, Jehovahs Witness Continue sedation to goal ~RASS -2. propofol + intermittent opiates are doing well so far. Continue intubated state, ventilator support possible extubation tomorrow if he continues to show stability Follow UOP, consider albumin rx +/- IVF +/- lasix Heparin IV per designated, jehovahs witness blood conservation strategies per hematology Glucose control Await pathology reports Thank you very much, Dr. Moura and Dr. Lloyd, for allowing me a chance to participate in the care of Mr. Alvarez. Please call for questions.
[2019-01-23] MEDS ORDERED: ALBUMIN 25% 25GM 100ML 0.25 GM/ML BTL IV ONE (21:30)
[2019-01-24] VITALS (25 sets, daily range): BP systolic 97–121; BP diastolic 59–75
[2019-01-24] MEDS: PROPOFOL IV EMULSION 10MG/ML 100 ML IV SCH ×2 (00:04→04:13)
[2019-01-24] MEDS ORDERED: ACETAMINOPHEN 1000 MG/100 ML IV STA (00:17)
[2019-01-24] MEDS ORDERED: FUROSEMIDE INJ 10 MG/ML 4 ML VIAL IV STA (00:40)
[2019-01-24] MEDS: PANTOPRAZOL 40MG/SOD CHL 0.9% 50 ML IV SCH ×5 (01:39→19:30)
[2019-01-24] MEDS: SODIUM CHLORIDE 0.9% 250ML IRRIG IR SCH ×6 (02:30→21:36)
[2019-01-24] MEDS: DEXTROSE 5%/LACTATED RINGERS 1,000 ML IV SCH (03:15)
[2019-01-24 05:10] LABS: BASOPHILS % 0.3 % (0.0-1.0); EOSINOPHILS # (AUTO) 0.2 (0.0-0.4); EOSINOPHILS % 1.8 % (0.0-6.0); HEMATOCRIT 24.4 % (38.2-49.6); LYMPHOCYTES # (AUTO) 0.5 (1.0-3.2); LYMPHOCYTES % 5.7 % (18.0-39.1); MEAN CORPUSCULAR HEMOGLOBIN 17.2 pg (28-32); MEAN CORPUSCULAR HGB CONC 26.6 g/dL (31-35); MEAN CORPUSCULAR VOLUME 64.7 fL (81-99); MONOCYTES % 11.3 % (4.4-11.3); NEUTROPHILS # (AUTO) 6.8 (2.1-6.9); NEUTROPHILS % 78.6 % (38.7-80.0); PLATELET COUNT 296 x10e3/uL (140-360); RED BLOOD COUNT 3.77 x10e6/uL (4.3-5.7); RED CELL DISTRIBUTION WIDTH 19.9 % (11.7-14.4)
[2019-01-24 05:28] LABS: HEMOGLOBIN 6.5 g/dL (14.0-18.0)
[2019-01-24 05:36] LABS: ALANINE AMINOTRANSFERASE 16 IU/L (0-55); ALBUMIN 2.2 g/dL (3.5-5.0); ALBUMIN/GLOBULIN RATIO 0.7 (0.8-2.0); ALKALINE PHOSPHATASE 77 IU/L (40-150); ANION GAP 13.2 mmol/L (8-16); BLOOD UREA NITROGEN 15 mg/dL (7-26); BUN/CREATININE RATIO 14 (6-25); CALCIUM 7.6 mg/dL (8.4-10.2); CARBON DIOXIDE 22 mmol/L (22-29); CHLORIDE 109 mmol/L (98-107); CREATININE, SERUM 1.11 mg/dL (0.72-1.25); EST GLOMERULAR FILTRATION RATE > 60 ML/MIN (60-); GLUCOSE 129 mg/dL (74-118); POTASSIUM 3.2 mmol/L (3.5-5.1); SODIUM 141 mmol/L (136-145)
[2019-01-24] MEDS ORDERED: POTASSIUM CHLORIDE 20 MEQ TAB CR PO ONE (06:28)
[2019-01-24 07:57] LABS: BAND NEUTROPHILS % (MANUAL) 4 %; LYMPHOCYTES % (MANUAL) 10 % (19-48); MONOCYTES % (MANUAL) 12 % (3.4-9.0); NEUTROPHILS % (MANUAL) 73 % (40-74); OVALOCYTES MODERATE; POLYCHROMASIA FEW
[2019-01-24 07:58] LABS: PLATELET ESTIMATE ADEQUATE; PLATELET MORPHOLOGY COMMENT NORMAL; RBC MORPHOLOGY COMMENT ABNORMAL; TEAR DROP CELLS FEW
[2019-01-24 07:59] LABS: ANISOCYTOSIS MODERATE; ELLIPTOCYTE, RBC MODERATE; HYPOCHROMASIA MODERATE; POIKILOCYTOSIS MODERATE
--- NOTE | 2019-01-24 10:29 | Diagnostic Imaging Report ---
EXAMINATION: CHEST SINGLE (PORTABLE) INDICATION: Shortness of breath COMPARISON: Chest radiograph of 01/23/2019 FINDINGS: LINES/TUBES:Endotracheal tube terminates approximately 6 cm above the liudmila. NG tube coils in the stomach. EKG leads overlie the chest. LUNGS:The lung volumes remain low. There is perihilar fullness and indistinctness of the pulmonary vasculature. Unchanged patchy bibasilar opacities silhouetting both hemidiaphragms. PLEURA:Small bilateral pleural effusions. No pneumothorax. MEDIASTINUM:Cardiomediastinal silhouette is mildly enlarged. BONES/SOFT TISSUES:No acute osseous injury. ABDOMEN:No free air under the diaphragm. IMPRESSION: Length and tubes as above. Low lung volumes with mild pulmonary edema. Unchanged small bilateral pleural effusions. Bibasilar patchy opacities, more likely subsegmental atelectasis than superimposed aspiration or pneumonia. Signed by: Hailey Remy MD on 01/24/2019 10:26 AM
[2019-01-24] MEDS ORDERED: POTASSIUM CHLORIDE 20MEQ/100ML 200 ML IV ONE (10:30)
--- NOTE | 2019-01-24 11:37 | NUR ---
Pulmonary Medicine DATE OF ENCOUNTER: 01/24/2019 SUBJECTIVE: intubated, on ventiltaor propfol sedation. awake now, on SBT. PPI IV, heparin IV. collier with ~25cc / hr now. during the night the patient received albumin + lasix with excellent response. 3.7 in, 3.1 L out. d5 LR at 100/hr ivf some transient fevers yesterday 101.7 tmax. H/H stable REVIEW OF SYSTEMS: Cannot get as he is intubated orally. OBJECTIVE: VITAL SIGNS: vital signs noted, reviewed per the chart record. GENERAL: NAD, alert and follows commands HEENT: Normocephalic and atraumatic. NECK: Supple. Throat midline. LUNGS: Bilateral air entry, mostly clear. CARDIOVASCULAR: S1 and S2. No murmurs, rubs, or gallops. ABDOMEN: Soft, but he is postoperative with bandage in place vertically on his abdomen. EXTREMITIES: No clubbing, no cyanosis, no edema. INTEGUMENT: No rash or purpura. LABORATORY DATA: k 3.2, bicarb 22, cr 1.11. wbc 9, hct 24. alb 2.2 IMPRESSION AND PLAN: 1. Postoperative respiratory insufficiency. 2. Elevated creatinine, acute kidney injury. Improved/persistent risk 3. 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 7. Other nonspecific abdominal lymphadenopathy. 8. Postoperative state, s/p exploratory laparotomy and small bowel resection. 9. Possible cirrhosis. 10. Massive splenomegaly. 11. Hyperlipidemia. 12. Gastroesophageal reflux disease. 13. thrombocytosis 14. anemia, Jehovahs Witness Continue intubated state for short term with ventilator support --SAT --SBT, possible extubation Follow UOP, consider albumin vs IVF +/- lasix Abx for possible peritonitis +/- other Heparin IV per designated, jehovahs witness blood conservation strategies per hematology Glucose control Await pathology reports fix k Thank you very much, Dr. Moura and Dr. Lloyd, for allowing me a chance to participate in the care of Mr. Alvarez. Please call for questions. >30 min direct care today, multiple direct evaluation and coordination
[2019-01-24] MEDS ORDERED: CLINDAMYCIN 600MG / 50ML 50 ML IV SCH (12:30)
[2019-01-24] MEDS ORDERED: FUROSEMIDE INJ 10 MG/ML 4 ML VIAL IV ONE (12:30)
[2019-01-24] MEDS ORDERED: VANCOMYCIN 1GM/NS 250 ML 250 ML IV ONE (13:30)
[2019-01-24] MEDS: DEXTROSE 5%/0.9% SOD CHL 1,000 ML IV SCH (13:39)
[2019-01-24 14:01] LABS: ALANINE AMINOTRANSFERASE 17 IU/L (0-55); ALBUMIN 2.3 g/dL (3.5-5.0); ALBUMIN/GLOBULIN RATIO 0.6 (0.8-2.0); ALKALINE PHOSPHATASE 91 IU/L (40-150); ANION GAP 11.4 mmol/L (8-16); BLOOD UREA NITROGEN 13 mg/dL (7-26); BUN/CREATININE RATIO 12 (6-25); CALCIUM 7.6 mg/dL (8.4-10.2); CARBON DIOXIDE 25 mmol/L (22-29); CHLORIDE 107 mmol/L (98-107); EST GLOMERULAR FILTRATION RATE > 60 ML/MIN (60-); GLUCOSE 127 mg/dL (74-118); POTASSIUM 3.4 mmol/L (3.5-5.1); SODIUM 140 mmol/L (136-145)
[2019-01-24 14:30] LABS: PHOSPHORUS 2.4 MG/DL (2.3-4.7)
--- NOTE | 2019-01-24 14:51 | NUR ---
Nutrition Intervention Note RD Recommendation(s) for Physician: - If unable to feed within 48hr, rec placing central line and initiating standard PN (30% dextrose, 15% AA) @ 41.7mL/hr, providing 1000mL total volume/day, 150g dextrose, 75g AA. Total kcal including lipids of 25g/ M,W,F 906kcal/day. -If no sign of refeeding syndrome after 48hr of TPN administration, consider increasing dextrose to 250 g/day to more adequately meet kcal needs. -BMP, Phos, Mag repeat daily; prealbumin, LFT, TG monitor weekly -BG check every 6 hr with corrective dose insulin -Continue with TPN per MD until diet is advanced and intake >50% -Advance diet as tolerated to GI soft Plan of Care: RD following, monitoring for tolerance and adequacy, PN Nutrition reason for involvement: NPO x [address] Assessment (01/24) Pt was discussed during AM rounds. Pt remained intubated and ventilated. S/p exploratory laparotomy and small bowel resection on 01/23/2019. POD 1. Currently on IV lasix, heparin and abx. Propofol was off. Pt was awake and alert. Pt has been NPO x 5 days. Rec to initiate PN if unable to feed in 48hr. (01/21) Initial encounter with Pt. Pt was not able to provide a nutrition Hx due to being sedated and orally intubated on mechanical ventilation. Daughter present. Daughter states that Pt was a healthy eater and ate well [employer]. Denies any wt changes [employer]. No chewing or swallowing difficulty [employer]. No known food allergies. Cholelithiasis, SBO/gangrene of small bowel, S/P exploratory laparotomy with cholecystectomy, appendectomy, and small bowel resection. NGT in place. Principal Problems/Diagnoses: Small bowel gangrene PMH: GERD, hyperlipidemia, Fatty Liver. GI: Abdomen round, firm, tender, flatus absent Skin: surgical abdominal wound Labs: (01/24) K 3.4 L Meds: dextrose, protonix, NaCl Ht:67 in. Wt:148.19lbs BMI:23.2kg/M2 IBW:148lbs Malnutrition Evaluation (01/21/19) The patient does not meet criteria for a specified degree of malnutrition at this time. Will re-evaluate at follow-up as appropriate. Nutrition Prescription (Diet Order): NPO Estimated Nutritional Needs: 8551-4162 calories/day (25-30kcal/kg/ BW) 67-101g protein/day (1-1.5g pro/kg/BW) Diet Adequacy: Not meeting calorie needs, Not meeting protein needs Diet Education Needs Assessment: Diet education not indicated. Nutrition Care Level: High Nutrition Diagnosis: Altered GI function related to cholelithiasis as evidenced by SBO/Exploratory laparotomy. Goal: Patient will meet 75-100% of estimated needs by follow up Progress: Not Progressing Interventions: Composition, Rate, Route, IVF Monitoring/Evaluation: Total energy intake, Total protein intake, Formula/Solution, IVF, Weight change. Signed: Belén Colon MS, RD, LD
[2019-01-24] MEDS: HYDROMORPHONE 1MG/1ML INJ IV PRN ×2 (15:25→21:29)
[2019-01-24] MEDS: HEPARIN 25,000 UNIT 25,000 UNIT in DEXTROSE 5% 250ML 250 ML IV SCH (15:33)
[2019-01-24] MEDS ORDERED: CEFTRIAXONE SOD 1 GM/NS 50 ML 50 ML IV SCH (17:00)
--- NOTE | 2019-01-24 17:00 | NUR ---
pt refused Q2Hr turn at this time
[2019-01-24] MEDS ORDERED: MAGNESIUM SULFATE 2GM/50ML 50 ML IV ONE (19:00)
[2019-01-24] MEDS: CEFEPIME 1GM/NS 0.9% 50 ML 50 ML IV SCH (19:41)
--- NOTE | 2019-01-24 19:49 | NUR ---
PICC nurse at bedside, pt still on heparin gtt and last PTT was at 04:30 01/24. PICC nurse said the heparin needs to be held for 2 hours or we need an INR. Dr. Glynn not answering phone. Since pt is jehovah witness, and hgb and platelets both dropping, PICC nurse said it would be best to wait until morning labs and do the PICC tomorrow 01/25. Pt and family agree with decision.
--- NOTE | 2019-01-24 19:50 | NUR ---
pt on a heparin drip has not been held ptt 51 plat and h&H have dropped from previous labs called dr. hutton for approval for picc insertion with current labs no call back nurse mee will call back once md approves current labs pt cannot receive blood products due to mosque reason for safety reasons md needs to clarify orders.
[2019-01-24] MEDS: METRONIDAZOLE 500MG/NS 100ML 100 ML IV SCH ×2 (20:16→23:32)
--- NOTE | 2019-01-24 20:30 | NUR ---
Dr. Glynn answered phone, aware of pt on heparin gtt. Ordered to get stat INR to see if PICC can be placed. Ordered that a triple lumen be placed if the PICC is unable to be placed due to pt needing TPN tonight.
[2019-01-24 20:58] LABS: INR 1.11; PROTHROMBIN TIME 14.8 seconds (11.9-14.5)
--- NOTE | 2019-01-24 22:57 | Diagnostic Imaging Report ---
A single frontal view of the chest. HISTORY: PICC line placement, anemia, cholelithiasis COMPARISON: Chest radiograph January 24, 2019 and January 23, 2019 DISCUSSION: Portable technique, limits sensitivity of the exam. Soft tissue attenuation partially limits sensitivity of the exam. Tubes/Lines: Right upper extremity PICC line, the tip projects at the region of the mid to distal superior vena cava. Status post extubation. The NG/OG-tube appears unchanged. Lungs and pleura: Low lung volumes result in bibasilar vascular crowding, accentuation of the pulmonary interstitial markings, central pulmonary vasculature, and the cardiac silhouette. Allowing for these limitations, the findings are as follows: Unchanged small bilateral pleural effusions with adjacent atelectasis. Heart and mediastinum: The cardiomediastinal silhouette appear(s) appears unchanged. Bones and soft tissues: Appear unremarkable, given this limited exam. IMPRESSION: 1. Status post placement of a right upper extremity PICC line and extubation. 2. Stable small bilateral pleural effusions with adjacent atelectasis. Signed by: Dr. Arash Cristina D.O., M.M.M. on 01/24/2019 10:54 PM
[2019-01-24] MEDS: CENTRAL TPN FORMULA 1 BAG IV SCH (23:01)
--- NOTE | 2019-01-24 23:02 | Consultation ---
DATE OF CONSULTATION: 01/24/2019 REASON FOR CONSULTATION: Peritonitis, recommendation antibiotic, ischemic gut. HISTORY OF PRESENT ILLNESS: This patient who is a very pleasant 58-year-old and unfortunate Latin-[place] male denies any past medical history, comes into the emergency room with abdominal pain, which was severe, apparently his daughter was at bedside, she is a podiatric nurse. The patient comes into [facility] on January 19, with severe abdominal pain, which he has been had for a week, but getting progressively worse. The patient had ultrasound showed gallbladder sludge. He also had HIDA scan with 90% ejection fraction. Abdominal and pelvic CAT scan showed right lower quadrant inflammation, now the liver consistent with cirrhosis. His spleen was 22.1 cm. The patient went for exploratory laparotomy and there was small bowel obstruction and mesenteric vein thrombosis and one-half of his small bowel was gangrenous. He also had lymphadenopathy in the abdomen. The patient had to go for another exploratory laparotomy because of abdominal pain. I was asked to see him today to make recommendation in terms of antibiotic. The patient is currently in the intensive care unit weak, no specific complaints. PAST MEDICAL HISTORY: According to his daughter, he was in fairly stable condition for all this. ALLERGIES: NKA. SOCIAL HISTORY: There is no smoking, drug abuse, or alcohol abuse. 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 REVIEW OF SYSTEMS: At the present time, he is just weak in the ICU, some abdominal discomfort. HEENT: Negative. PULMONARY: Negative. CARDIAC: Negative. : Negative. SKIN: There are no other rashes. LABORATORY DATA: Reviewed. Of interest, the patient is Jehovah's Witnesses. His white count is reviewed. His white count when he first came was 14.6, came down to 8.6. His hemoglobin when he first came 7.3, came down to 6.5. His platelet as mentioned above was 456. Sodium 140, potassium 3.4, creatinine 1.1. PHYSICAL EXAMINATION: GENERAL: He is currently alert, oriented, does not seem to be in acute distress. VITAL SIGNS: Stable. Currently afebrile. HEENT: He is not icteric. NECK: Supple. CHEST: Clear bilateral. HEART: S1, S2. No S3, S4, or murmur. ABDOMEN: Soft. Bowel sounds present. Hypoactive. Wound looks good. IMPRESSION: 1. This patient, who is status post 2 exploratory laparotomy for gangrenous bowel, concerned about spillage in peritonitis. I would suggest to put him on cefepime 1 g q.8, Flagyl 500 IV q.6. He received a dose of vancomycin. 2. Anemia. The patient is Jehovah's Witnesses. 3. Postoperative respiratory insufficiency seem to be stable. 4. Acute kidney injury, perhaps chronic kidney disease. 5. Mesenteric venous thrombosis, etiology unclear. 6. Anemia, etiology unclear. 7. Cirrhosis. 8. Massive splenomegaly. 9. Hyperlipidemia. Consider Hematology/Oncology evaluation. We will follow with you. Discussed with the family. MD WINNIE Wheeler/CYNTHIA /[id number]
[2019-01-25] VITALS (24 sets, daily range): BP systolic 104–123; BP diastolic 62–72
[2019-01-25] MEDS: PANTOPRAZOL 40MG/SOD CHL 0.9% 50 ML IV SCH ×5 (00:08→23:03)
[2019-01-25] MEDS: CEFEPIME 1GM/NS 0.9% 50 ML 50 ML IV SCH ×3 (00:30→17:34)
[2019-01-25] MEDS: SODIUM CHLORIDE 0.9% 250ML IRRIG IR SCH ×6 (00:30→23:03)
[2019-01-25] MEDS: HYDROMORPHONE 1MG/1ML INJ IV PRN ×5 (04:41→23:15)
[2019-01-25 05:16] LABS: BASOPHILS % 0.3 % (0.0-1.0); EOSINOPHILS # (AUTO) 0.1 (0.0-0.4); EOSINOPHILS % 1.3 % (0.0-6.0); HEMATOCRIT 25.3 % (38.2-49.6); LYMPHOCYTES # (AUTO) 0.6 (1.0-3.2); MEAN CORPUSCULAR HEMOGLOBIN 17.5 pg (28-32); MEAN CORPUSCULAR HGB CONC 26.5 g/dL (31-35); MEAN CORPUSCULAR VOLUME 66.1 fL (81-99); MONOCYTES # (AUTO) 0.7 (0.2-0.8); MONOCYTES % 9.7 % (4.4-11.3); NEUTROPHILS # (AUTO) 5.2 (2.1-6.9); NEUTROPHILS % 77.6 % (38.7-80.0); PLATELET COUNT 273 x10e3/uL (140-360); RED BLOOD COUNT 3.83 x10e6/uL (4.3-5.7); RED CELL DISTRIBUTION WIDTH 21.5 % (11.7-14.4)
[2019-01-25] MEDS: DEXTROSE 5%/0.9% SOD CHL 1,000 ML IV SCH (05:18)
[2019-01-25 05:27] LABS: HEMOGLOBIN 6.7 g/dL (14.0-18.0)
[2019-01-25] MEDS: METRONIDAZOLE 500MG/NS 100ML 100 ML IV SCH ×3 (05:30→17:34)
--- NOTE | 2019-01-25 05:35 | Diagnostic Imaging Report ---
A single frontal view of the chest. HISTORY: Anemia, cholelithiasis COMPARISON: Chest radiograph January 24, 2019. DISCUSSION: Portable technique, limits sensitivity of the exam. Soft tissue attenuation partially limits sensitivity of the exam. Tubes/Lines: Right upper extremity PICC line, the tip projects at the region of the mid to distal superior vena cava. The NG/OG-tube appears unchanged. Lungs and pleura: Low lung volumes result in bibasilar vascular crowding, accentuation of the pulmonary interstitial markings, central pulmonary vasculature, and the cardiac silhouette. Allowing for these limitations, the findings are as follows: Unchanged small bilateral pleural effusions with adjacent atelectasis. Heart and mediastinum: The cardiomediastinal silhouette appear(s) appears unchanged. Bones and soft tissues: Appear unremarkable, given this limited exam. IMPRESSION: 1. Stable small bilateral pleural effusions with adjacent atelectasis. 2. No significant interval change. Signed by: Dr. Arash Cristina D.O., M.M.M. on 01/25/2019 5:31 AM
[2019-01-25 05:47] LABS: PHOSPHORUS 4.5 MG/DL (2.3-4.7)
[2019-01-25 06:20] LABS: ALANINE AMINOTRANSFERASE 13 IU/L (0-55); ALBUMIN/GLOBULIN RATIO 0.6 (0.8-2.0); ALKALINE PHOSPHATASE 72 IU/L (40-150); ANION GAP 8.4 mmol/L (8-16); BLOOD UREA NITROGEN 18 mg/dL (7-26); BUN/CREATININE RATIO 17 (6-25); CALCIUM 7.2 mg/dL (8.4-10.2); CARBON DIOXIDE 26 mmol/L (22-29); CHLORIDE 108 mmol/L (98-107); CREATININE, SERUM 1.09 mg/dL (0.72-1.25); EST GLOMERULAR FILTRATION RATE > 60 ML/MIN (60-); GLUCOSE 192 mg/dL (74-118); POTASSIUM 3.4 mmol/L (3.5-5.1); SODIUM 139 mmol/L (136-145)
[2019-01-25] MEDS: INSULIN LISPRO 100 UNIT/1 ML 3ML VIAL SQ SCH ×4 (06:43→20:08)
[2019-01-25] MEDS ORDERED: DEXTROSE 50% SYRINGE 50 ML IV PRN (06:45)
[2019-01-25 07:40] LABS: EOSINOPHILS % (MANUAL) 2 % (0-7); LYMPHOCYTES % (MANUAL) 8 % (19-48); MONOCYTES % (MANUAL) 8 % (3.4-9.0); NEUTROPHILS % (MANUAL) 82 % (40-74)
[2019-01-25 07:41] LABS: ANISOCYTOSIS MODERATE; MICROCYTOSIS SLIGHT; PLATELET ESTIMATE ADEQUATE; PLATELET MORPHOLOGY COMMENT NORMAL; RBC MORPHOLOGY COMMENT ABNORMAL
[2019-01-25 07:42] LABS: OVALOCYTES FEW
[2019-01-25 07:44] LABS: ELLIPTOCYTE, RBC SLIGHT; HYPOCHROMASIA MARKED
--- NOTE | 2019-01-25 07:53 | NUR ---
called dr hutton to report labs. spoke with dr huong pond regarding ptt. updated on pt status. no changes at this time
[2019-01-25] MEDS ORDERED: POTASSIUM CHLORIDE 20MEQ/100ML 100 ML IV ONE (08:30)
[2019-01-25] MEDS: PROPOFOL IV EMULSION 10MG/ML 100 ML IV SCH (15:15)
[2019-01-25] MEDS: HEPARIN 25,000 UNIT 25,000 UNIT in DEXTROSE 5% 250ML 250 ML IV SCH (17:35)
[2019-01-25] MEDS: EPOETIN ALFA 10000 UNIT/ML VIAL SC SCH (17:59)
[2019-01-25] MEDS ORDERED: CHLORASEPTIC SPRAY 177 ML BTL MM PRN (19:30)
--- NOTE | 2019-01-25 19:35 | NUR ---
Pulmonary Medicine DATE OF ENCOUNTER: 01/25/2019 SUBJECTIVE: remains extubated UOP low normal but sustained some abdominal pain, occasional coughing with small retained respiratory secretions likely NGT still with output REVIEW OF SYSTEMS: no headaches, no rash OBJECTIVE: VITAL SIGNS: vital signs noted, reviewed per the chart record. GENERAL: NAD, alert + calm HEENT: Normocephalic and atraumatic. NECK: Supple. Throat midline. LUNGS: Bilateral air entry, mostly clear. CARDIOVASCULAR: S1 and S2. No murmurs, rubs, or gallops. ABDOMEN: Soft, but he is postoperative with bandage in place vertically on his abdomen. EXTREMITIES: No clubbing, no cyanosis, no edema. INTEGUMENT: No rash or purpura. LABORATORY DATA: reviewed per EMR, 7 wbc, 6.7 hb, plt 273 3.4 k, cr 1.09, alb 2.0 IMPRESSION AND PLAN: 1. Postoperative respiratory insufficiency. Extubated 2. Acute kidney injury, risk 3. 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 7. Other nonspecific abdominal lymphadenopathy. 8. Postoperative state, s/p exploratory laparotomy and small bowel resection. 9. Possible cirrhosis. 10. Massive splenomegaly. 11. Hyperlipidemia. 12. Gastroesophageal reflux disease. 13. thrombocytosis 14. anemia, Jehovahs Witness Follow UOP, mildly decrease IVF follow up GI output-- ensure patient doesnt get too dry Abx for possible peritonitis +/- other Heparin IV per designated, jehovahs witness blood conservation strategies per hematology Glucose control Await pathology reports fix k slowly mobilize Thank you very much, Dr. Moura and Dr. Lloyd, for allowing me a chance to participate in the care of Mr. Alvarez. Please call for questions.
[2019-01-25] MEDS: CENTRAL TPN FORMULA 1 BAG IV SCH (20:05)
[2019-01-26] VITALS (25 sets, daily range): BP systolic 103–132; BP diastolic 63–99
[2019-01-26] MEDS: METRONIDAZOLE 500MG/NS 100ML 100 ML IV SCH ×5 (00:43→23:25)
[2019-01-26] MEDS: CEFEPIME 1GM/NS 0.9% 50 ML 50 ML IV SCH ×3 (00:44→16:10)
[2019-01-26] MEDS: SODIUM CHLORIDE 0.9% 250ML IRRIG IR SCH ×5 (00:44→17:30)
[2019-01-26] MEDS: PANTOPRAZOL 40MG/SOD CHL 0.9% 50 ML IV SCH ×5 (04:12→20:00)
[2019-01-26 05:14] LABS: BASOPHILS % 0.3 % (0.0-1.0); EOSINOPHILS # (AUTO) 0.1 (0.0-0.4); EOSINOPHILS % 1.8 % (0.0-6.0); HEMATOCRIT 30.1 % (38.2-49.6); HEMOGLOBIN 7.8 g/dL (14.0-18.0); LYMPHOCYTES # (AUTO) 0.6 (1.0-3.2); LYMPHOCYTES % 7.6 % (18.0-39.1); MEAN CORPUSCULAR HEMOGLOBIN 17.4 pg (28-32); MEAN CORPUSCULAR HGB CONC 25.9 g/dL (31-35); MEAN CORPUSCULAR VOLUME 67.3 fL (81-99); MONOCYTES # (AUTO) 0.7 (0.2-0.8); MONOCYTES % 9.2 % (4.4-11.3); NEUTROPHILS # (AUTO) 6.2 (2.1-6.9); NEUTROPHILS % 78.9 % (38.7-80.0); PLATELET COUNT 257 x10e3/uL (140-360); RED BLOOD COUNT 4.47 x10e6/uL (4.3-5.7); RED CELL DISTRIBUTION WIDTH 22.5 % (11.7-14.4)
[2019-01-26 05:29] LABS: ALANINE AMINOTRANSFERASE 10 IU/L (0-55); ALBUMIN/GLOBULIN RATIO 0.5 (0.8-2.0); ALKALINE PHOSPHATASE 104 IU/L (40-150); ANION GAP 13.7 mmol/L (8-16); BLOOD UREA NITROGEN 19 mg/dL (7-26); BUN/CREATININE RATIO 19 (6-25); CALCIUM 7.5 mg/dL (8.4-10.2); CARBON DIOXIDE 21 mmol/L (22-29); CHLORIDE 110 mmol/L (98-107); CREATININE, SERUM 0.98 mg/dL (0.72-1.25); EST GLOMERULAR FILTRATION RATE > 60 ML/MIN (60-); GLUCOSE 144 mg/dL (74-118); POTASSIUM 3.7 mmol/L (3.5-5.1); SODIUM 141 mmol/L (136-145)
[2019-01-26 05:45] LABS: MAGNESIUM 2.3 MG/DL (1.3-2.1); PHOSPHORUS 1.7 MG/DL (2.3-4.7)
[2019-01-26 06:49] LABS: BAND NEUTROPHILS % (MANUAL) 4 %; EOSINOPHILS % (MANUAL) 2 % (0-7); LYMPHOCYTES % (MANUAL) 7 % (19-48); MONOCYTES % (MANUAL) 7 % (3.4-9.0); NEUTROPHILS % (MANUAL) 80 % (40-74); NUCLEATED RED BLOOD CELLS 1
[2019-01-26 06:51] LABS: ANISOCYTOSIS SLIGHT; ELLIPTOCYTE, RBC SLIGHT; OVALOCYTES FEW; POIKILOCYTOSIS MODERATE; POLYCHROMASIA FEW; RBC MORPHOLOGY COMMENT ABNORMAL
[2019-01-26 06:52] LABS: PLATELET MORPHOLOGY COMMENT NORMAL
[2019-01-26 06:53] LABS: PLATELET ESTIMATE ADEQUATE
[2019-01-26] MEDS ORDERED: POTASSIUM PHOSPHATE 30 MM in SODIUM CHLORIDE 0.9% 250ML 250 ML IV SCH (08:30)
[2019-01-26] MEDS ORDERED: FUROSEMIDE INJ 10 MG/ML 4 ML VIAL IV ONE (08:30)
[2019-01-26] MEDS: HYDROMORPHONE 1MG/1ML INJ IV PRN ×2 (10:30→16:00)
[2019-01-26] MEDS: INSULIN LISPRO 100 UNIT/1 ML 3ML VIAL SQ SCH ×3 (11:59→23:25)
[2019-01-26] MEDS ORDERED: BENZOCAINE/TETRACAINE/BUTAMBEN AERO SPRAY 56 GM CAN TOP ONE (12:45)
[2019-01-26] MEDS ORDERED: ACETAMINOPHEN 1000 MG/100 ML IV PRN (12:45)
[2019-01-26] MEDS ORDERED: BISACODYL 10 MG SUPP PR ONE ×2 (12:45)
--- NOTE | 2019-01-26 13:00 | NUR ---
Pulmonary Medicine DATE OF ENCOUNTER: 01/26/2019 SUBJECTIVE: NGT output ~100/hr this morning Flatus reported CXR with low lung volumes and possible effusions. better than 3 days ago 2.3 l in, 1.9 l out he is awake and he sat up and temporarily stood up with a walker REVIEW OF SYSTEMS: no headaches, no rash OBJECTIVE: VITAL SIGNS: vital signs noted, reviewed per the chart record. GENERAL: NAD, alert + calm HEENT: Normocephalic and atraumatic. NECK: Supple. Throat midline. LUNGS: Bilateral air entry, mostly clear. CARDIOVASCULAR: S1 and S2. No murmurs, rubs, or gallops. ABDOMEN: Soft, but he is postoperative with bandage in place vertically on his abdomen. EXTREMITIES: No clubbing, no cyanosis, no edema. INTEGUMENT: No rash or purpura. LABORATORY DATA: reviewed per EMR, 7 wbc, 6.7 hb, plt 273 3.4 k, cr 1.09, alb 2.0 IMPRESSION AND PLAN: 1. Postoperative respiratory insufficiency. Extubated 2. Acute kidney injury, risk 3. 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 7. Other nonspecific abdominal lymphadenopathy. 8. Postoperative state, s/p exploratory laparotomy and small bowel resection. 9. Possible cirrhosis. 10. Massive splenomegaly. 11. Hyperlipidemia. 12. Gastroesophageal reflux disease. 13. thrombocytosis 14. anemia, Jehovahs Witness Follow UOP, increase diuretics follow up GI output, from NGT and from bowel function. trial of suppository Abx for possible peritonitis +/- other Heparin IV per designated, jehovahs witness blood conservation strategies per hematology Glucose control slowly mobilize mobilize Thank you very much, Dr. Moura and Dr. Lloyd, for allowing me a chance to participate in the care of Mr. Alvarez. Please call for questions.
[2019-01-26] MEDS: FUROSEMIDE INJ 10 MG/ML 4 ML VIAL IV SCH ×2 (13:05→21:00)
[2019-01-26] MEDS: ACETAMINOPHEN 1000 MG/100 ML 100 ML IV SCH ×2 (13:06→21:30)
[2019-01-26] MEDS ORDERED: ACETAMINOPHEN 1000 MG/100 ML IV SCH (14:00)
[2019-01-26] MEDS ORDERED: SODIUM CHLORIDE 0.9% 250ML 250 ML ONE (14:49)
[2019-01-26] MEDS: HEPARIN 25,000 UNIT 25,000 UNIT in DEXTROSE 5% 250ML 250 ML IV SCH (15:20)
--- NOTE | 2019-01-26 17:38 | NUR ---
Dr. Glynn called in AM and notified of patients lab results. Orders given for one time dose of lasix and potassium phosphate IV. Patient stood up with physical therapy today. PICC line dressing changed per protocol. Dr. Lloyd notified of NGT output. ordered Dulcolax suppository. After administration patient had two bowel movements. Patient up in chair later this afternoon. Will continue to monitor.
[2019-01-26] MEDS: CENTRAL TPN FORMULA 1 BAG IV SCH (20:22)
[2019-01-27] VITALS (26 sets, daily range): BP systolic 101–128; BP diastolic 63–99
[2019-01-27] MEDS: CEFEPIME 1GM/NS 0.9% 50 ML 50 ML IV SCH ×3 (00:23→18:01)
[2019-01-27] MEDS: PANTOPRAZOL 40MG/SOD CHL 0.9% 50 ML IV SCH ×4 (01:24→18:53)
[2019-01-27 05:11] LABS: BASOPHILS % 0.2 % (0.0-1.0); EOSINOPHILS % 0.5 % (0.0-6.0); HEMATOCRIT 30.3 % (38.2-49.6); HEMOGLOBIN 8.2 g/dL (14.0-18.0); LYMPHOCYTES # (AUTO) 0.7 (1.0-3.2); MEAN CORPUSCULAR HGB CONC 27.1 g/dL (31-35); MEAN CORPUSCULAR VOLUME 66.6 fL (81-99); MONOCYTES # (AUTO) 0.8 (0.2-0.8); MONOCYTES % 9.9 % (4.4-11.3); NEUTROPHILS # (AUTO) 6.2 (2.1-6.9); NEUTROPHILS % 76.8 % (38.7-80.0); PLATELET COUNT 287 x10e3/uL (140-360); RED BLOOD COUNT 4.55 x10e6/uL (4.3-5.7); RED CELL DISTRIBUTION WIDTH 24.4 % (11.7-14.4)
[2019-01-27 05:29] LABS: ALANINE AMINOTRANSFERASE 14 IU/L (0-55); ALBUMIN 2.2 g/dL (3.5-5.0); ALBUMIN/GLOBULIN RATIO 0.6 (0.8-2.0); ALKALINE PHOSPHATASE 124 IU/L (40-150); ANION GAP 15.6 mmol/L (8-16); BLOOD UREA NITROGEN 27 mg/dL (7-26); BUN/CREATININE RATIO 25 (6-25); CALCIUM 7.6 mg/dL (8.4-10.2); CARBON DIOXIDE 24 mmol/L (22-29); CHLORIDE 108 mmol/L (98-107); CREATININE, SERUM 1.07 mg/dL (0.72-1.25); EST GLOMERULAR FILTRATION RATE > 60 ML/MIN (60-); GLUCOSE 180 mg/dL (74-118); MAGNESIUM 2.4 MG/DL (1.3-2.1); PHOSPHORUS 2.9 MG/DL (2.3-4.7); POTASSIUM 3.6 mmol/L (3.5-5.1); SODIUM 144 mmol/L (136-145)
[2019-01-27] MEDS: ACETAMINOPHEN 1000 MG/100 ML 100 ML IV SCH (06:00)
[2019-01-27] MEDS: INSULIN LISPRO 100 UNIT/1 ML 3ML VIAL SQ SCH ×3 (06:10→18:07)
[2019-01-27] MEDS: FUROSEMIDE INJ 10 MG/ML 4 ML VIAL IV SCH ×2 (06:10→15:39)
[2019-01-27] MEDS: METRONIDAZOLE 500MG/NS 100ML 100 ML IV SCH ×3 (06:10→18:53)
--- NOTE | 2019-01-27 06:30 | NUR ---
Spoke to Dr. Alexis Lloyd regarding PTT 46.9. Orders obtained to increase Heparin gtt to 1200 units/hr and start Coumadin 10 mg PO daily. Orders entered in [facility].
[2019-01-27 08:49] LABS: BAND NEUTROPHILS % (MANUAL) 5 %; LYMPHOCYTES % (MANUAL) 10 % (19-48); MONOCYTES % (MANUAL) 8 % (3.4-9.0); NEUTROPHILS % (MANUAL) 77 % (40-74)
[2019-01-27 08:50] LABS: ANISOCYTOSIS MODERATE; ELLIPTOCYTE, RBC MODERATE; MICROCYTOSIS SLIGHT; OVALOCYTES MODERATE
[2019-01-27 08:51] LABS: PLATELET ESTIMATE ADEQUATE; PLATELET MORPHOLOGY COMMENT NORMAL; RBC MORPHOLOGY COMMENT ABNORMAL; SCHISTOCYTES FEW; TEAR DROP CELLS FEW
[2019-01-27] MEDS ORDERED: SODIUM CHLORIDE 0.9% 250ML 250 ML ONE (09:28)
--- NOTE | 2019-01-27 11:48 | NUR ---
Pulmonary Medicine DATE OF ENCOUNTER: 01/27/2019 SUBJECTIVE: NGT out +more flatus +liquid BM mild assist to mobilize tpn iv, PPI iv, heparin iv 97% sat, 3 L/min NC oxygen REVIEW OF SYSTEMS: no headaches, no bleeding OBJECTIVE: VITAL SIGNS: vital signs noted, reviewed per the chart record. GENERAL: NAD, alert, calm HEENT: Normocephalic and atraumatic. NECK: Supple. Throat midline. LUNGS: Bilateral air entry, mostly clear. CARDIOVASCULAR: S1 and S2. No murmurs, rubs, or gallops. ABDOMEN: Soft, postoperative with bandage in place, he is sensitive and doesnt like to be pushed on much-- semi deferred EXTREMITIES: No clubbing, no cyanosis, no edema. INTEGUMENT: No rash or purpura. LABORATORY DATA: 3.6 k, cr 1.07. wbc 8.1, 30 hct. IMPRESSION AND PLAN: 1. Postoperative respiratory insufficiency. Extubated 2. Acute kidney injury, risk 3. 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 7. Other nonspecific abdominal lymphadenopathy. 8. Postoperative state, s/p exploratory laparotomy and small bowel resection. 9. Possible cirrhosis. 10. Massive splenomegaly. 11. Hyperlipidemia. 12. Gastroesophageal reflux disease. 13. thrombocytosis 14. anemia, Jehovahs Witness Reasonable for diuretics d/c collier catheter later today dc NGT yesterday. follow up for bowel function. Abx for possible gangrene related peritonitis +/- other Heparin IV per designated, jehovahs witness blood conservation strategies per hematology Glucose control slowly mobilize mobilize Thank you very much, Dr. Moura and Dr. Lloyd, for allowing me a chance to participate in the care of Mr. Alvarez. Please call for questions.
--- NOTE | 2019-01-27 16:45 | NUR ---
Nutrition Intervention Note RD Recommendation(s) for Physician: -Current central PN (50% dextrose, 10% AA) @60mL/hr, providing 1440mL total volume/ day, 360g dextrose, 72g AA. Total kcal including lipids of 50g/M,W,F 1705kcal. -Rec decreasing dextrose to 250g/day due to elevated BG -BMP, Phos, Mag repeat daily; prealbumin, LFT, TG monitor weekly -BG check every 6 hr with corrective dose insulin -Continue with TPN per MD until diet is advanced and intake >50% -Advance diet as tolerated to GI soft Plan of Care: RD following, monitoring for tolerance and adequacy, PN Nutrition reason for involvement: Follow up, New TPN RD Assessment (01/27) Pt was discussed during AM rounds. TPN was started yesterday. NGT has been removed. Pt had 2 BM after Ducolax was given. Clear liquid diet has been ordered to start dinner tonight. Na, K, Phos WNL. Mg was elevated. BG was running between 170 180 today. Will continue to monitor and follow. (01/24) Pt was discussed during AM rounds. Pt remained intubated and ventilated. S/p exploratory laparotomy and small bowel resection on 01/23/2019. POD 1. Currently on IV lasix, heparin and abx. Propofol was off. Pt was awake and alert. Pt has been NPO x 5 days. Rec to initiate PN if unable to feed in 48hr. (01/21) Initial encounter with Pt. Pt was not able to provide a nutrition Hx due to being sedated and orally intubated on mechanical ventilation. Daughter present. Daughter states that Pt was a healthy eater and ate well RN PRIOR AUTHORIZATION. Denies any wt changes RN PRIOR AUTHORIZATION. No chewing or swallowing difficulty RN PRIOR AUTHORIZATION. No known food allergies. Cholelithiasis, SBO/gangrene of small bowel, S/P exploratory laparotomy with cholecystectomy, appendectomy, and small bowel resection. NGT in place. Principal Problems/Diagnoses: Small bowel gangrene PMH: GERD, hyperlipidemia, Fatty Liver. GI: Abdomen round, firm, tender, flatus absent Skin: surgical abdominal wound Labs: (01/27) BUN 27 H, Glucose 181 H, Ca 7.6 L, Mg 2.4 H (01/24) K 3.4 L Meds: protonix, insulin, cefepime Ht:67 in. Wt:148.19lbs; 149lb BMI:23.2kg/M2 IBW:148lbs Malnutrition Evaluation (01/21/19) The patient does not meet criteria for a specified degree of malnutrition at this time. Will re-evaluate at follow-up as appropriate. Nutrition Prescription (Diet Order): clear liquid Estimated Nutritional Needs: 2236-0365 calories/day (25-30kcal/kg/ BW) 67-101g protein/day (1-1.5g pro/kg/BW) Diet Adequacy: meeting calorie needs, meeting protein needs Diet Education Needs Assessment: Diet education not indicated. Nutrition Care Level: High Nutrition Diagnosis: Altered GI function related to cholelithiasis as evidenced by SBO/Exploratory laparotomy. Goal: Patient will meet 75-100% of estimated needs by follow up Progress: Progressing Interventions: Composition, Rate, Route, IVF Monitoring/Evaluation: Total energy intake, Total protein intake, Formula/Solution, IVF, Weight change. Signed: Belén Colon, MS, RD, LD
[2019-01-27] MEDS ORDERED: WARFARIN SOD 5 MG TAB PO SCH (17:00)
[2019-01-27] MEDS: HEPARIN 25,000 UNIT 25,000 UNIT in DEXTROSE 5% 250ML 250 ML IV SCH (18:01)
[2019-01-27] MEDS: EPOETIN ALFA 10000 UNIT/ML VIAL SC SCH (20:28)
[2019-01-27] MEDS: CENTRAL TPN FORMULA 1 BAG IV SCH (20:28)
[2019-01-28] VITALS (18 sets, daily range): BP systolic 105–136; BP diastolic 67–90
[2019-01-28] MEDS: PANTOPRAZOL 40MG/SOD CHL 0.9% 50 ML IV SCH ×3 (00:15→13:37)
[2019-01-28] MEDS: METRONIDAZOLE 500MG/NS 100ML 100 ML IV SCH ×5 (00:15→23:35)
[2019-01-28] MEDS: INSULIN LISPRO 100 UNIT/1 ML 3ML VIAL SQ SCH ×4 (00:18→18:00)
[2019-01-28] MEDS: CEFEPIME 1GM/NS 0.9% 50 ML 50 ML IV SCH ×3 (01:30→17:00)
[2019-01-28 04:50] LABS: BASOPHILS % 0.4 % (0.0-1.0); EOSINOPHILS # (AUTO) 0.2 (0.0-0.4); HEMATOCRIT 30.3 % (38.2-49.6); HEMOGLOBIN 8.2 g/dL (14.0-18.0); LYMPHOCYTES # (AUTO) 0.9 (1.0-3.2); LYMPHOCYTES % 9.5 % (18.0-39.1); MEAN CORPUSCULAR HEMOGLOBIN 18.1 pg (28-32); MEAN CORPUSCULAR HGB CONC 27.1 g/dL (31-35); MONOCYTES # (AUTO) 0.9 (0.2-0.8); MONOCYTES % 9.8 % (4.4-11.3); NEUTROPHILS # (AUTO) 6.9 (2.1-6.9); NEUTROPHILS % 72.8 % (38.7-80.0); PLATELET COUNT 241 x10e3/uL (140-360); RED BLOOD COUNT 4.52 x10e6/uL (4.3-5.7); RED CELL DISTRIBUTION WIDTH 25.7 % (11.7-14.4)
[2019-01-28 05:01] LABS: INR 1.24; PROTHROMBIN TIME 16.2 seconds (11.9-14.5)
[2019-01-28 05:14] LABS: ALANINE AMINOTRANSFERASE 15 IU/L (0-55); ALBUMIN 2.2 g/dL (3.5-5.0); ALBUMIN/GLOBULIN RATIO 0.6 (0.8-2.0); ALKALINE PHOSPHATASE 145 IU/L (40-150); ANION GAP 10.3 mmol/L (8-16); BLOOD UREA NITROGEN 31 mg/dL (7-26); BUN/CREATININE RATIO 33 (6-25); CALCIUM 7.9 mg/dL (8.4-10.2); CARBON DIOXIDE 26 mmol/L (22-29); CHLORIDE 114 mmol/L (98-107); CREATININE, SERUM 0.94 mg/dL (0.72-1.25); EST GLOMERULAR FILTRATION RATE > 60 ML/MIN (60-); GLUCOSE 164 mg/dL (74-118); MAGNESIUM 2.5 MG/DL (1.3-2.1); PHOSPHORUS 2.4 MG/DL (2.3-4.7); POTASSIUM 3.3 mmol/L (3.5-5.1); SODIUM 147 mmol/L (136-145)
--- NOTE | 2019-01-28 06:27 | Diagnostic Imaging Report ---
A single frontal view of the chest. HISTORY: CHF, anemia COMPARISON: Chest radiograph January 25, 2019 DISCUSSION: Portable technique, limits sensitivity of the exam. Overlying monitoring leads. Tubes/Lines: Right upper extremity PICC line, the tip of the catheter projects in the region of the superior vena cava. Lungs and pleura: Low lung volumes result in bibasilar vascular crowding, accentuation of the pulmonary interstitial markings, central pulmonary vasculature, and the cardiac silhouette. Allowing for these limitations, the findings are as follows: Mild right basilar atelectasis. No evidence of a consolidative pneumonia or pulmonary alveolar edema. No definite pleural effusion or pneumothorax is identified. Heart and mediastinum: The cardiomediastinal silhouette appear(s) unremarkable. Bones and soft tissues: Appear unremarkable, given this limited exam. IMPRESSION: Mild right basilar atelectasis. Signed by: Dr. Arash Cristina D.O., M.M.M. on 01/28/2019 6:24 AM
[2019-01-28] MEDS ORDERED: POTASSIUM CHLORIDE 20 MEQ TAB CR PO NR (13:00)
[2019-01-28] MEDS ORDERED: POTASSIUM CHLORIDE 20MEQ/100ML 200 ML IV ONE (13:15)
--- NOTE | 2019-01-28 13:48 | Progress Note ---
DATE: 01/28/2019 Internal Medicine Progress Note SUBJECTIVE: The patient is doing well except for the diarrhea. PHYSICAL EXAMINATION: VITAL SIGNS: Blood pressure 109/69, temperature 98.1, heart rate 68 per minute, respiratory rate 25 per minute, oxygen saturation 95%. HEART: Showed regular rhythm. Normal S1, S2 sound. LUNGS: Clear bilaterally. ABDOMEN: Soft. EXTREMITIES: Show no evidence of cyanosis or hematoma. LABORATORY DATA: On the blood work, we have BMP with a sodium 147, potassium 3.3, chloride 114, CO2 of 26, BUN 31, creatinine 0.94. On the CBC we have a white count 9.41, hemoglobin 8.2, hematocrit 30.3, platelet count 241,000. PT 16.2, INR 1.24, PTT 55.0. AST 26, ALT 15, total bilirubin 0.9, alkaline phosphatase of 145. FINAL IMPRESSION: 1. 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 2. 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 3. Cirrhosis of the liver. 4. Anemia of chronic disease. 5. Hypokalemia. 6. Hyponatremia. 7. Acute renal insufficiency. PLAN OF TREATMENT: Continue Protonix drip. Continue cefepime 1 g IV daily q.8 hours. Continue metronidazole 500 mg IV q.6 hours. Continue heparin drip. Continue monitoring PT and PTT. Continue Epogen 20,000 units on Wednesday, Wednesday, and Wednesday. Continue Dilaudid 0.5 mg IV q.3 hours as needed, D50 IV push as needed. Continue to monitor blood sugar q.6 hours. Continue Coumadin 5 mg daily. Potassium is going to be replaced. We are going to recheck the potassium today and tomorrow along with a CBC. MD LACI Saavedra/MODL /[id number]
--- NOTE | 2019-01-28 15:45 | NUR ---
report given to MCKENNA Paul
--- NOTE | 2019-01-28 16:08 | NUR ---
Received patient from ICU, a/ox3, in bed and no resp distress, on continuous TPN at this time and re-ordered for tonight per ICU nurse who gave report to this nurse prior to patient arrival. Patient in room, Picc line in place, family at bedside and call light within reach, will monitor.
--- NOTE | 2019-01-28 16:09 | NUR ---
pt transferred to [facility] via bed in stable condition. personal belongings with pt and family
[2019-01-28] MEDS: WARFARIN SOD 5 MG TAB PO SCH (17:00)
[2019-01-28] MEDS: HEPARIN 25,000 UNIT 25,000 UNIT in DEXTROSE 5% 250ML 250 ML IV SCH (17:45)
--- NOTE | 2019-01-28 19:04 | NUR ---
BEDSIDE SHIFT REPORT PERFORMED, RECEIVED PT LAYING SITTING ON SIDE OF BED, AAOX3, RR EVEN AND NON-LABORED, ON ROOM AIR. NO S/SX OF DISTRESS NOTED. INCISION TO ABD NOTED TO BE CDI, OPEN TO AIR. DIAPER IN PLACE. HEPARIN DRIP AT 12ML/HR INFUSION TO PICC, ALSO INFUSION IS TPN, PROTONIX DRIP, AND POTASSIUM. (L) PT SITTING ON SIDE OF BED, BED IN LOW LOCKED POSITION, SIDE RAILS UPX2, CALL LIGHT AND PHONE WITHIN REACH.
[2019-01-28 19:45] LABS: ANION GAP 13.1 mmol/L (8-16); BLOOD UREA NITROGEN 29 mg/dL (7-26); BUN/CREATININE RATIO 33 (6-25); CALCIUM 7.9 mg/dL (8.4-10.2); CARBON DIOXIDE 21 mmol/L (22-29); CHLORIDE 114 mmol/L (98-107); CREATININE, SERUM 0.88 mg/dL (0.72-1.25); EST GLOMERULAR FILTRATION RATE > 60 ML/MIN (60-); GLUCOSE 152 mg/dL (74-118); POTASSIUM 4.1 mmol/L (3.5-5.1); SODIUM 144 mmol/L (136-145)
--- NOTE | 2019-01-28 19:58 | NUR ---
SPOKE WITH MD Carolyne JETER CONCERNING PROTONIX REACHING STOP DATE. NEW ORDERS RECEIVED TO START PROTONIX BID.
[2019-01-28] MEDS: CENTRAL TPN FORMULA 1 BAG IV SCH (20:20)
[2019-01-28] MEDS: PANTOPRAZOLE 40 MG 10ML VIAL IV SCH (20:20)
--- NOTE | 2019-01-28 21:30 | NUR ---
Pulmonary Medicine DATE OF ENCOUNTER: 01/28/2019 SUBJECTIVE: loose stools q2 hrs, better than previous walking with min assist PO started, on TPN 60/hr PPi REVIEW OF SYSTEMS: no headaches, no bleeding OBJECTIVE: VITAL SIGNS: vital signs noted, reviewed per the chart record. GENERAL: NAD, alert, calm HEENT: Normocephalic and atraumatic. NECK: Supple. Throat midline. LUNGS: Bilateral air entry, mostly clear. CARDIOVASCULAR: S1 and S2. No murmurs, rubs, or gallops. ABDOMEN: Soft, postoperative EXTREMITIES: No clubbing, no cyanosis, no edema. INTEGUMENT: No rash or purpura. LABORATORY DATA: 4. 1 k, 21 hco3, cr 0.88, wbc 9.4, 30 hct, 241 plt. IMPRESSION AND PLAN: 1. Postoperative respiratory insufficiency. Extubated 2. Acute kidney injury, risk 3. 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 7. Other nonspecific abdominal lymphadenopathy. 8. Postoperative state, s/p exploratory laparotomy and small bowel resection. 9. Possible cirrhosis. 10. Massive splenomegaly. 11. Hyperlipidemia. 12. Gastroesophageal reflux disease. 13. thrombocytosis 14. anemia, Jehovahs Witness PO diet CLD start TPN per others, wean off soon likely Abx for possible gangrene related peritonitis +/- other Heparin IV per designated, warfarin loading start --jehovahs witness blood conservation strategies Glucose control slowly mobilize Thank you very much, Dr. Moura and Dr. Lloyd, for allowing me a chance to participate in the care of Mr. Alvarez. Please call for questions.
[2019-01-28] MEDS ORDERED: SODIUM CHLORIDE 0.9% 250ML 250 ML ONE (23:26)
--- NOTE | 2019-01-28 23:30 | NUR ---
APPLIED ALTERNATING PRESSURE PUMP TO MATTRESS.
[2019-01-28] MEDS: HYDROMORPHONE 1MG/1ML INJ IV PRN (23:35)
[2019-01-28] MEDS: ONDANSETRON HCL INJ 2MG/ML 2ML 2 MG/ML VIAL IV PRN (23:35)
[2019-01-29] VITALS (7 sets, daily range): BP systolic 110–141; BP diastolic 69–87
[2019-01-29] MEDS: INSULIN LISPRO 100 UNIT/1 ML 3ML VIAL SQ SCH ×4 (00:50→18:47)
[2019-01-29] MEDS: CEFEPIME 1GM/NS 0.9% 50 ML 50 ML IV SCH ×4 (00:51→18:29)
[2019-01-29] MEDS: HYDROMORPHONE 1MG/1ML INJ IV PRN ×3 (04:38→20:30)
[2019-01-29] MEDS: ONDANSETRON HCL INJ 2MG/ML 2ML 2 MG/ML VIAL IV PRN ×3 (04:38→20:30)
[2019-01-29 05:41] LABS: BASOPHILS # (AUTO) 0.1 (0.0-0.1); BASOPHILS % 0.4 % (0.0-1.0); EOSINOPHILS # (AUTO) 0.3 (0.0-0.4); EOSINOPHILS % 2.2 % (0.0-6.0); HEMATOCRIT 32.6 % (38.2-49.6); HEMOGLOBIN 8.7 g/dL (14.0-18.0); LYMPHOCYTES # (AUTO) 1.1 (1.0-3.2); LYMPHOCYTES % 8.8 % (18.0-39.1); MEAN CORPUSCULAR HEMOGLOBIN 18.4 pg (28-32); MEAN CORPUSCULAR HGB CONC 26.7 g/dL (31-35); MEAN CORPUSCULAR VOLUME 69.1 fL (81-99); MONOCYTES # (AUTO) 1.1 (0.2-0.8); MONOCYTES % 8.8 % (4.4-11.3); NEUTROPHILS # (AUTO) 9.3 (2.1-6.9); NEUTROPHILS % 74.9 % (38.7-80.0); PLATELET COUNT 215 x10e3/uL (140-360); RED BLOOD COUNT 4.72 x10e6/uL (4.3-5.7); RED CELL DISTRIBUTION WIDTH 27.1 % (11.7-14.4)
[2019-01-29 06:00] LABS: ANION GAP 12.1 mmol/L (8-16); BLOOD UREA NITROGEN 26 mg/dL (7-26); BUN/CREATININE RATIO 29 (6-25); CALCIUM 7.8 mg/dL (8.4-10.2); CARBON DIOXIDE 21 mmol/L (22-29); CHLORIDE 114 mmol/L (98-107); CREATININE, SERUM 0.89 mg/dL (0.72-1.25); EST GLOMERULAR FILTRATION RATE > 60 ML/MIN (60-); GLUCOSE 144 mg/dL (74-118); POTASSIUM 4.1 mmol/L (3.5-5.1); SODIUM 143 mmol/L (136-145)
[2019-01-29 06:06] LABS: INR 1.98; PROTHROMBIN TIME 23.2 seconds (11.9-14.5)
[2019-01-29] MEDS: METRONIDAZOLE 500MG/NS 100ML 100 ML IV SCH ×3 (06:28→19:58)
[2019-01-29 06:49] LABS: BAND NEUTROPHILS % (MANUAL) 3 %; NEUTROPHILS % (MANUAL) 83 % (40-74)
[2019-01-29 06:50] LABS: GIANT PLATELETS FEW; LARGE PLATELETS FEW; LYMPHOCYTES % (MANUAL) 7 % (19-48); MONOCYTES % (MANUAL) 7 % (3.4-9.0); NUCLEATED RED BLOOD CELLS 1; PLATELET ESTIMATE ADEQUATE
[2019-01-29 06:51] LABS: HYPOCHROMASIA SLIGHT; PLATELET MORPHOLOGY COMMENT NORMAL; POLYCHROMASIA FEW
[2019-01-29 06:52] LABS: RBC MORPHOLOGY COMMENT ABNORMAL; STOMATOCYTES MODERATE
[2019-01-29] MEDS: PANTOPRAZOLE 40 MG 10ML VIAL IV SCH ×2 (09:04→18:29)
[2019-01-29] MEDS ORDERED: HEPARIN 25,000 UNIT DRIP IV ONE (09:43)
[2019-01-29] MEDS: HEPARIN 25,000 UNIT 25,000 UNIT in DEXTROSE 5% 250ML 250 ML IV SCH ×2 (09:45→17:45)
--- NOTE | 2019-01-29 12:38 | Progress Note ---
DATE: 01/29/2019 Internal Medicine Progress Note SUBJECTIVE: The patient is feeling better today. PHYSICAL EXAMINATION: ABDOMEN: Soft. EXTREMITIES: Show no evidence of cyanosis or hematoma. VITAL SIGNS: Blood pressure 114/70, temperature 37.8, heart rate 77 per minute, respiratory rate 16 per minute, oxygen saturation 97%. LABORATORY DATA: On the BMP; sodium 143, potassium 4.1, chloride 114, CO2 of 21, BUN 26, creatinine 0.89, glucose 144. CBC; white count 12,400, hemoglobin 8.7, hematocrit 32.6, platelet count of 215,000, PT 23.2, INR 1.98, PTT 77.6. AST 26, ALT 15, total bilirubin 0.9, alkaline phosphatase 145. IMPRESSION: 1. Ischemic bowel. 2. Diarrhea secondary to short small bowel syndrome. 3. Cirrhosis. 4. Anemia. 5. Hypokalemia. 6. Acute renal failure. 7. Hyponatremia. PLAN OF TREATMENT: Continue TPN. Continue metronidazole 500 mg IV q.6 hours, cefepime 1 g IV q.8 hours. Continue heparin drip. Continue monitoring PTT. Continue Coumadin 5 mg daily. Continue monitoring PT and INR. Once the INR is 2.0 more, than we can discontinue the heparin 24 hour later. Continue Dilaudid 0.5 mg IV q.3 hours as needed, Epogen 20,000 units on Wednesday, Wednesday, and Wednesday. Continue to monitor blood sugar q.6 hours. Continue Tylenol 650 mg q.6 hours as needed, Protonix 40 mg twice a day, D50 IV push as needed for hypoglycemia, Zofran 4 mg IV q.4 hours as needed for nausea and vomiting. We are going to start physical and occupational therapy. The patient has been seen also by Dr. Pike for Hematology/Oncology due to the thrombosis on the mesenteric catheter. He has been seen also by Dr. Santosh Glynn for Nephrology, Dr. Ogden for Critical Care and Dr. Oliverio Moura for Gastroenterology and Dr. George for Infectious Diseases. Min Marcial MD LAS/MODL /[id number]
[2019-01-29] MEDS: WARFARIN SOD 5 MG TAB PO SCH (18:29)
[2019-01-29] MEDS: CENTRAL TPN FORMULA 1 BAG IV SCH (20:00)
--- NOTE | 2019-01-29 20:00 | NUR ---
INITIAL ASSESSMENT COMPLETE, PT IN BED, TURNED TO LEFT SIDE, PICC TO RIGHT UPPER ARM, TPN INFUSING, HEPRIN DRIP INFUSING, MIDLINE INCISION OPEN TO AIR WITH JUVENAL, CDI, NO REDNESS NOTED, PT ABD SLIGHTLY DISTENDED, TENDER TO TOUCH, PT ON CL, TOLERATING WELL, NO VOMITING, FAMILY AT BEDSIDE, CALL LIGHT IN REACH, TOLD TO CALL FOR NEEDS, FREQUENT ROOM CHECKS ON PT, VS STABLE
[2019-01-29] MEDS ORDERED: HEPARIN 25,000 UNIT 800 UNIT in DEXTROSE 5% 250ML 250 ML IV SCH (20:30)
[2019-01-29] MEDS ORDERED: MIRTAZAPINE 15 MG TAB PO PRN (23:00)
[2019-01-29] MEDS ORDERED: PANTOPRAZOLE 40 MG 10ML VIAL IV STA (23:38)
[2019-01-29] MEDS: PANTOPRAZOL 40MG/SOD CHL 0.9% 50 ML IV SCH (23:45)
--- NOTE | 2019-01-29 23:45 | NUR ---
DR Juan J JETER HERE TO SEE PT AND DR. SUAREZ, JERRY ORDERS, BOTH TALKED TO PT AND FAMILY
[2019-01-30] VITALS (7 sets, daily range): BP systolic 132–160; BP diastolic 80–91
--- NOTE | 2019-01-30 00:12 | NUR ---
Pulmonary Medicine DATE OF ENCOUNTER: 01/29/2019 SUBJECTIVE: RA fio2 steady progress some insomnia some abd pain less BMs REVIEW OF SYSTEMS: no headaches, no bleeding OBJECTIVE: VITAL SIGNS: vital signs noted, reviewed per the chart record. GENERAL: NAD, alert, calm HEENT: Normocephalic and atraumatic. NECK: Supple. Throat midline. LUNGS: Bilateral air entry, mostly clear. CARDIOVASCULAR: S1 and S2. No murmurs, rubs, or gallops. ABDOMEN: Soft, postoperative EXTREMITIES: No clubbing, no cyanosis, no edema. INTEGUMENT: No rash or purpura. LABORATORY DATA: 4.1 k, cr .9. 12 wbc, 33 hct. 215 plt. inr 1.98 IMPRESSION AND PLAN: 1. Postoperative respiratory insufficiency. Extubated 2. Small bowel gangrene. 3. Acute mesenteric vein thrombosis. 4. Other nonspecific abdominal lymphadenopathy. 5. Postoperative state, s/p exploratory laparotomy and small bowel resection. 6. Possible cirrhosis. 7. Massive splenomegaly. 8. Hyperlipidemia. 9. Gastroesophageal reflux disease. 10. admit with thrombocytosis 11. anemia, Jehovahs Witness PO escalate diet per surgeon, CLD now TPN dc Abx for possible gangrene related peritonitis +/- other Heparin IV per designated, warfarin loading continue --jehovahs witness blood conservation strategies Glucose control slowly mobilize Remeron trial Thank you very much, Dr. Moura and Dr. Lloyd, for allowing me a chance to participate in the care of Mr. Alvarez. Please call for questions.
[2019-01-30] MEDS ORDERED: SODIUM CHLORIDE 0.9% 500ML 500 ML ONE (00:19)
[2019-01-30] MEDS: CEFEPIME 1GM/NS 0.9% 50 ML 50 ML IV SCH ×2 (01:00→08:14)
[2019-01-30] MEDS: PANTOPRAZOL 40MG/SOD CHL 0.9% 50 ML IV SCH ×4 (03:30→22:01)
[2019-01-30] MEDS: INSULIN LISPRO 100 UNIT/1 ML 3ML VIAL SQ SCH ×4 (06:00→18:22)
[2019-01-30] MEDS: METRONIDAZOLE 500MG/NS 100ML 100 ML IV SCH ×3 (06:00→19:12)
[2019-01-30 06:36] LABS: BASOPHILS # (AUTO) 0.1 (0.0-0.1); BASOPHILS % 0.4 % (0.0-1.0); EOSINOPHILS # (AUTO) 0.1 (0.0-0.4); EOSINOPHILS % 0.4 % (0.0-6.0); HEMATOCRIT 35.2 % (38.2-49.6); HEMOGLOBIN 9.5 g/dL (14.0-18.0); LYMPHOCYTES # (AUTO) 0.8 (1.0-3.2); LYMPHOCYTES % 4.9 % (18.0-39.1); MEAN CORPUSCULAR HEMOGLOBIN 18.7 pg (28-32); MEAN CORPUSCULAR VOLUME 69.4 fL (81-99); MONOCYTES # (AUTO) 1.1 (0.2-0.8); MONOCYTES % 6.7 % (4.4-11.3); NEUTROPHILS # (AUTO) 13.9 (2.1-6.9); NEUTROPHILS % 82.8 % (38.7-80.0); PLATELET COUNT 58 x10e3/uL (140-360); RED BLOOD COUNT 5.07 x10e6/uL (4.3-5.7); RED CELL DISTRIBUTION WIDTH 28.7 % (11.7-14.4)
[2019-01-30 07:17] LABS: ANION GAP 12.6 mmol/L (8-16); BLOOD UREA NITROGEN 26 mg/dL (7-26); BUN/CREATININE RATIO 29 (6-25); CALCIUM 8.2 mg/dL (8.4-10.2); CARBON DIOXIDE 19 mmol/L (22-29); CHLORIDE 110 mmol/L (98-107); CREATININE, SERUM 0.91 mg/dL (0.72-1.25); EST GLOMERULAR FILTRATION RATE > 60 ML/MIN (60-); GLUCOSE 180 mg/dL (74-118); POTASSIUM 4.6 mmol/L (3.5-5.1); SODIUM 137 mmol/L (136-145)
[2019-01-30 07:26] LABS: INR 2.95; PROTHROMBIN TIME 31.5 seconds (11.9-14.5)
--- NOTE | 2019-01-30 07:32 | NUR ---
RECEIVED PATIENT RESTING IN BED NO SIGNS OF DISTRESS. BED LOW, WHEELS LOCKED, SIDE RAILS X2. CALL LIGHT IN REACH WILL CONTINUE TO MONITOR PATIENT.
[2019-01-30] MEDS: EPOETIN ALFA 10000 UNIT/ML VIAL SC SCH (08:14)
[2019-01-30] MEDS: HYDROMORPHONE 1MG/1ML INJ IV PRN ×3 (08:22→18:21)
[2019-01-30] MEDS ORDERED: CITRIC ACID/SODIUM CITRATE 30 ML UDC PO ONE (10:30)
--- NOTE | 2019-01-30 10:30 | NUR ---
PATIENT A/O X3, EVEN RESPIRATIONS ON RA. BOWEL SOUNDS ACTIVE. LUNG SOUNDS CLEAR TO AUSCULTATION. RIGHT UA PICC LINE WITH TPN @ 30 CC/HR. IV @ KVO. LEFT UA 22 GAUGE IV WITH PROTONIX DRIP @ 10CC/HR. PATIENT AMBULATES WITH STANDBY ASSIST. PRN PAIN MEDICATION NEEDED. HEPARIN DRIP DISCONTINUED THIS AM. CALL LIGHT IN REACH WILL CONTINUE TO MONITOR PATIENT.
--- NOTE | 2019-01-30 10:40 | NUR ---
Pulmonary Medicine DATE OF ENCOUNTER: 01/30/2019 SUBJECTIVE: tpn 60/hr iv PPI IV he is eating liquids, and he guesses that he will finish 1/2 soup and some jello only 1 bm at night REVIEW OF SYSTEMS: no headaches, no bleeding OBJECTIVE: VITAL SIGNS: vital signs noted, reviewed per the chart record. GENERAL: NAD, alert, calm HEENT: Normocephalic and atraumatic. NECK: Supple. Throat midline. LUNGS: Bilateral air entry, mostly clear. CARDIOVASCULAR: S1 and S2. No murmurs, rubs, or gallops. ABDOMEN: Soft, postoperative EXTREMITIES: No clubbing, no cyanosis, no edema. INTEGUMENT: No rash or purpura. LABORATORY DATA: 4.6 k, cr .91. 17 wbc. 35 hct. 58 plt. IMPRESSION AND PLAN: 1. Postoperative respiratory insufficiency. Extubated 2. Small bowel gangrene. 3. Acute mesenteric vein thrombosis. 4. Other nonspecific abdominal lymphadenopathy. 5. Postoperative state, s/p exploratory laparotomy and small bowel resection. 6. Possible cirrhosis. 7. Massive splenomegaly. 8. Hyperlipidemia. 9. Gastroesophageal reflux disease. 10. admit with thrombocytosis 11. anemia, Jehovahs Witness PO escalate diet per surgeon, CLD for now TPN dc when able (and dc central line)-- will leave for others to decide Abx for possible gangrene related peritonitis +/- other Warfarin loading continue --jehovahs witness blood conservation strategies follow all pathology to final Glucose control slowly mobilize Thank you very much, Dr. Moura and Dr. Lloyd, for allowing me a chance to participate in the care of Mr. Alvarez. Please call for questions.
[2019-01-30 12:48] LABS: LYMPHOCYTES % (MANUAL) 16 % (19-48); MONOCYTES % (MANUAL) 12 % (3.4-9.0); NEUTROPHILS % (MANUAL) 72 % (40-74)
[2019-01-30] MEDS: ONDANSETRON HCL INJ 2MG/ML 2ML 2 MG/ML VIAL IV PRN ×2 (12:49→18:21)
[2019-01-30 12:59] LABS: RBC MORPHOLOGY COMMENT ABNORMAL
[2019-01-30 13:00] LABS: ANISOCYTOSIS SLIGHT
[2019-01-30 13:03] LABS: POLYCHROMASIA MODERATE
[2019-01-30 13:04] LABS: PLATELET ESTIMATE MODERATELY DECREASED; PLATELET MORPHOLOGY COMMENT NORMAL
[2019-01-30 14:25] LABS: HEMATOCRIT 32.9 % (38.2-49.6); HEMOGLOBIN 8.9 g/dL (14.0-18.0); MEAN CORPUSCULAR HEMOGLOBIN 18.9 pg (28-32); MEAN CORPUSCULAR HGB CONC 27.1 g/dL (31-35); PLATELET COUNT 57 x10e3/uL (140-360)
--- NOTE | 2019-01-30 14:34 | NUR ---
Nutrition Follow-up Note RD Recommendation(s) for Physician: -Advance diet as tolerated to GI soft -Continue with TPN per MD until diet is advanced and intake >50% -Current central PN (50% dextrose, 10% AA) @60mL/hr, providing 1440mL total volume/ day, 360g dextrose, 72g AA. Total kcal including lipids of 50g/M,W,F 1705kcal. -Rec decreasing dextrose to 250g/day due to elevated BG -BMP, Phos, Mag repeat daily; prealbumin, LFT, TG monitor weekly -BG check every 6 hr with corrective dose insulin Plan of Care: RD following, monitoring for tolerance and adequacy, diet education Nutrition reason for involvement: RN consult diet education RD Assessment (01/30) Visited pt in the room. Pt was still getting TPN at 60mL/hr. Plan to d/c TPN today (?). Pt has been on clear liquid x 3 days. Pt only consumed small amount of liquids and reports tolerating well. Pt denied any nausea or vomiting. LBM 01/29. No other complains at this time. RD provided education and handouts on GI soft diet as consulted. All questions have been answered. (01/27) Pt was discussed during AM rounds. TPN was started yesterday. NGT has been removed. Pt had 2 BM after Ducolax was given. Clear liquid diet has been ordered to start dinner tonight. Na, K, Phos WNL. Mg was elevated. BG was running between 170 180 today. Will continue to monitor and follow. (01/24) Pt was discussed during AM rounds. Pt remained intubated and ventilated. S/p exploratory laparotomy and small bowel resection on 01/23/2019. POD 1. Currently on IV lasix, heparin and abx. Propofol was off. Pt was awake and alert. Pt has been NPO x 5 days. Rec to initiate PN if unable to feed in 48hr. (01/21) Initial encounter with Pt. Pt was not able to provide a nutrition Hx due to being sedated and orally intubated on mechanical ventilation. Daughter present. Daughter states that Pt was a healthy eater and ate well UNCRATER. Denies any wt changes UNCRATER. No chewing or swallowing difficulty UNCRATER. No known food allergies. Cholelithiasis, SBO/gangrene of small bowel, S/P exploratory laparotomy with cholecystectomy, appendectomy, and small bowel resection. NGT in place. Principal Problems/Diagnoses: Small bowel gangrene PMH: GERD, hyperlipidemia, Fatty Liver. GI: Abdomen soft, non-tender, round, flatus + Skin: surgical abdominal wound Labs: (01/30) Glucose 159 H, Mg 2.3 H, Ca 8.2 L (01/27) BUN 27 H, Glucose 181 H, Ca 7.6 L, Mg 2.4 H (01/24) K 3.4 L Meds: insulin, dilaudid, zofran, protonix, epogen Ht:67 in. Wt:148.19lbs; 149lb; 152lb BMI:23.2kg/M2 IBW:148lbs Malnutrition Evaluation (01/21/19) The patient does not meet criteria for a specified degree of malnutrition at this time. Will re-evaluate at follow-up as appropriate. Nutrition Prescription (Diet Order): clear liquid x 3 days with TPN Estimated Nutritional Needs: 5951-3994 calories/day (25-30kcal/kg/ BW) 67-101g protein/day (1-1.5g pro/kg/BW) Diet Adequacy: meeting calorie needs, meeting protein needs Diet Education Needs Assessment: (01/30) Diet education indicated. Learner(s): and daughter Time spent: 20minutes Barriers: No barriers identified. Cultural/Language Modifications: Daughter speaks Syriac. Readiness: Acceptance Method: Handouts, explanation Topics: GI soft diet Understanding/Compliance: Expect good understanding/compliance from pt. Will benefit from reinforcement. All questions have been answered. Nutrition Care Level: Mod Nutrition Diagnosis: Altered GI function related to cholelithiasis as evidenced by SBO/Exploratory laparotomy. Goal: Patient will meet 75-100% of estimated needs by follow up Progress: Progressing Interventions: Composition, Rate, Route, IVF Monitoring/Evaluation: Total energy intake, Total protein intake, Formula/Solution, IVF, Weight change. Signed: Belén Colon, MS, RD, LD
[2019-01-30] MEDS: WARFARIN SOD 2 MG TAB PO SCH (17:07)
[2019-01-30] MEDS ORDERED: METRONIDAZOLE 500MG/NS 100ML 100 ML IV SCH (19:00)
[2019-01-30 20:30] LABS: LYMPHOCYTES % (MANUAL) 3 % (19-48); MONOCYTES % (MANUAL) 4 % (3.4-9.0); NEUTROPHILS % (MANUAL) 92 % (40-74)
[2019-01-30 20:31] LABS: ANISOCYTOSIS MODERATE; HYPOCHROMASIA MODERATE; PLATELET ESTIMATE MODERATELY DECREASED; PLATELET MORPHOLOGY COMMENT NORMAL; POIKILOCYTOSIS MODERATE; RBC MORPHOLOGY COMMENT ABNORMAL
[2019-01-31] VITALS (7 sets, daily range): BP systolic 118–132; BP diastolic 70–85
[2019-01-31] MEDS: INSULIN LISPRO 100 UNIT/1 ML 3ML VIAL SQ SCH
[2019-01-31] MEDS: METRONIDAZOLE 500MG/NS 100ML 100 ML IV SCH ×5 (00:30→23:19)
[2019-01-31] MEDS: HYDROMORPHONE 1MG/1ML INJ IV PRN (00:50)
[2019-01-31] MEDS: PANTOPRAZOL 40MG/SOD CHL 0.9% 50 ML IV SCH ×5 (00:50→22:27)
[2019-01-31] MEDS: ONDANSETRON HCL INJ 2MG/ML 2ML 2 MG/ML VIAL IV PRN ×2 (00:50→21:00)
[2019-01-31 05:16] LABS: BASOPHILS # (AUTO) 0.1 (0.0-0.1); BASOPHILS % 0.3 % (0.0-1.0); EOSINOPHILS # (AUTO) 0.1 (0.0-0.4); EOSINOPHILS % 0.5 % (0.0-6.0); HEMATOCRIT 31.3 % (38.2-49.6); HEMOGLOBIN 8.6 g/dL (14.0-18.0); LYMPHOCYTES # (AUTO) 1.1 (1.0-3.2); LYMPHOCYTES % 6.3 % (18.0-39.1); MEAN CORPUSCULAR HEMOGLOBIN 19.2 pg (28-32); MEAN CORPUSCULAR HGB CONC 27.5 g/dL (31-35); MEAN CORPUSCULAR VOLUME 69.7 fL (81-99); MONOCYTES # (AUTO) 1.2 (0.2-0.8); NEUTROPHILS # (AUTO) 14.1 (2.1-6.9); NEUTROPHILS % 82.9 % (38.7-80.0); PLATELET COUNT 68 x10e3/uL (140-360); RED BLOOD COUNT 4.49 x10e6/uL (4.3-5.7); RED CELL DISTRIBUTION WIDTH 29.7 % (11.7-14.4)
[2019-01-31 05:23] LABS: INR 2.75; PROTHROMBIN TIME 29.8 seconds (11.9-14.5)
[2019-01-31 06:15] LABS: LYMPHOCYTES % (MANUAL) 5 % (19-48); MONOCYTES % (MANUAL) 5 % (3.4-9.0); NEUTROPHILS % (MANUAL) 90 % (40-74)
[2019-01-31 06:16] LABS: PLATELET ESTIMATE MARKEDLY DECREASED
[2019-01-31 06:18] LABS: HYPOCHROMASIA MODERATE
[2019-01-31 06:20] LABS: RBC MORPHOLOGY COMMENT ABNORMAL
--- NOTE | 2019-01-31 07:14 | NUR ---
RECEIVED PATIENT RESTING IN BED, NO SIGNS OF DISTRESS. BED LOW, WHEELS LOCKED, SIDE RAILS X2. CALL LIGHT IN REACH WILL CONTINUE TO MONITOR PATIENT.
[2019-01-31] MEDS ORDERED: INSULIN LISPRO 100 UNIT/1 ML 3ML VIAL SQ SCH (07:30)
--- NOTE | 2019-01-31 09:45 | NUR ---
PATIENT A/O X3, EVEN RESPIRATIONS ON RA. LUNG SOUNDS CLEAR TO AUSCULTATION. BOWEL SOUNDS X4. PATIENT STATED HE HAD 2 BM's LAST NIGHT. MIDLINE INCISION OPEN TO AIR, NO DRAINAGE. RIGHT UA PICC IN PLACE. LEFT UA 22 GAUGE IV WITH PROTONIX DRIP @ 10 CC/HR. PATIENT AMBULATES WITH ASSISTANCE. NO PAIN OR DISCOMFORT AT THIS TIME. CALL LIGHT IN REACH WILL CONTINUE TO MONITOR PATIENT.
--- NOTE | 2019-01-31 09:52 | Diagnostic Imaging Report ---
Abdomen, 2 views, with chest. History: Ileus. Findings: Cardiac silhouette and pulmonary vascular are normal. Bibasilar atelectasis is present. Right upper extremity PICC is noted. A few air-filled loops of bowel are seen in the mid abdomen, with a relative paucity of air laterally. If these central loops are small bowel, they would be considered mildly dilated. There are no air-fluid levels. There is no evidence of free air. Midline surgical claudette are present. There are no masses or abnormal calcifications. The osseous structures are intact. IMPRESSION: 1. Bibasilar atelectasis. 2. Possible mild small bowel dilatation with relative paucity of air distally. Cannot exclude ileus or early obstruction. Signed by: Nolan Fuentes on 01/31/2019 9:49 AM
--- NOTE | 2019-01-31 15:11 | NUR ---
RAQUEL GUERRA STAPLED TO ORDER AND FACESHEET WAITING ON SIGNATURE FROM MD AND WILL FILE IN PACU FOR PROCESSING.
[2019-01-31] MEDS: WARFARIN SOD 2 MG TAB PO SCH (17:09)
[2019-02-01] VITALS (8 sets, daily range): BP systolic 115–133; BP diastolic 63–84
--- NOTE | 2019-02-01 01:23 | NUR ---
Pulmonary Medicine DATE OF ENCOUNTER: 01/31/2019 SUBJECTIVE: BM CLD, ate about 1/3 of meal walked INR therapeutic REVIEW OF SYSTEMS: no headaches, no bleeding OBJECTIVE: VITAL SIGNS: vital signs noted, reviewed per the chart record. GENERAL: NAD, alert, calm HEENT: Normocephalic and atraumatic. NECK: Supple. Throat midline. LUNGS: Bilateral air entry, mostly clear. CARDIOVASCULAR: S1 and S2. No murmurs, rubs, or gallops. ABDOMEN: Soft, postoperative EXTREMITIES: No clubbing, no cyanosis, no edema. INTEGUMENT: No rash or purpura. LABORATORY DATA: INR 2.75, 17 wbc, 31 hct, 68 plt. 4.6 k, 0.91 cr. IMPRESSION AND PLAN: 1. Postoperative respiratory insufficiency. Extubated 2. Small bowel gangrene. 3. Acute mesenteric vein thrombosis. 4. Other nonspecific abdominal lymphadenopathy. 5. Postoperative state, s/p exploratory laparotomy and small bowel resection. 6. Possible cirrhosis. 7. Massive splenomegaly. 8. Hyperlipidemia. 9. Gastroesophageal reflux disease. 10. admit with thrombocytosis 11. anemia, Jehovahs Witness PO escalate diet per surgeon, CLD for now dc central line soon Abx for possible gangrene related peritonitis +/- other per ID Warfarin continue --jehovahs witness blood conservation strategies Glucose control slowly mobilize Thank you very much, Dr. Moura and Dr. Lloyd, for allowing me a chance to participate in the care of Mr. Alvarez. Please call for questions.
[2019-02-01] MEDS: PANTOPRAZOL 40MG/SOD CHL 0.9% 50 ML IV SCH ×4 (04:01→20:18)
[2019-02-01] MEDS: METRONIDAZOLE 500MG/NS 100ML 100 ML IV SCH ×3 (05:25→17:29)
[2019-02-01 05:39] LABS: INR 3.14
[2019-02-01 05:56] LABS: ALANINE AMINOTRANSFERASE 16 IU/L (0-55); ALBUMIN 2.1 g/dL (3.5-5.0); ALBUMIN/GLOBULIN RATIO 0.7 (0.8-2.0); ALKALINE PHOSPHATASE 125 IU/L (40-150); BUN/CREATININE RATIO 37 (6-25); CARBON DIOXIDE 20 mmol/L (22-29); CHLORIDE 110 mmol/L (98-107); CREATININE, SERUM 1.11 mg/dL (0.72-1.25); EST GLOMERULAR FILTRATION RATE > 60 ML/MIN (60-); GLUCOSE 103 mg/dL (74-118); MAGNESIUM 2.3 MG/DL (1.3-2.1); PHOSPHORUS 3.6 MG/DL (2.3-4.7); SODIUM 139 mmol/L (136-145)
[2019-02-01 06:07] LABS: BLOOD UREA NITROGEN 41 mg/dL (7-26)
[2019-02-01] MEDS: ACETAMINOPHEN 325 MG TAB PO PRN ×3 (06:37→23:22)
--- NOTE | 2019-02-01 17:00 | NUR ---
Spoke with CLEMENTINA Zepeda for Dr. George. Orders received to DC right upper arm PICC line and new orders received to initiate PO Flagyl. Orders implemented.
[2019-02-01] MEDS: WARFARIN SOD 2 MG TAB PO SCH (17:41)
--- NOTE | 2019-02-01 17:41 | NUR ---
Spoke with Dr. Hernandez at this time. Orders to continue administering Coumadin. INR is 3.14. Addendum: 02/02/19 at 1231 by Bill Fountain RN Dr. Hernandez stated "goal INR will be above 3.50."
--- NOTE | 2019-02-01 19:00 | NUR ---
RECEIVED PATIENT IN REPORT. PATIENT RESTING IN BED AT THIS TIME. NO PAIN REPORTED. NO S&S OF DISTRESS NOTED. EDUCATED PATIENT ON PLAN MOVING FORWARD WITH D/C PICC LINE AND ORAL ABX, REGULAR DIET FOR BREAKFAST. NO QUESTIONS AT THIS TIME. BED LOCKED IN LOWEST POSITION, SIDE RAILS UPX2, CALL LIGHT IN REACH.
--- NOTE | 2019-02-01 20:34 | NUR ---
R UPPER ARM PICC REMOVED AT THIS TIME. CATHETER TIP IN TACT. MANUAL PRESSURE APPLIED FOR 10 MINUTES. PRESSURE DRESSING APPLIED. DRESSING C/D/I. TOLD PATIENT TO CALL IF ANY BLOOD ON DRESSING IS SEEN. PATIENT TOLERATED WELL. BED LOCKED IN LOWEST POSITION, SIDE RAILS UPX2, CALL LIGHT IN REACH.
--- NOTE | 2019-02-01 20:49 | NUR ---
Pulmonary Medicine DATE OF ENCOUNTER: 02/01/2019 SUBJECTIVE: Patient with unclear tolerance of food. Patient was increased to full liquid diet. He is still not eating enough. White blood count still elevated at 17,000. Nausea x1 but intermittent now. Bowel movement x1/ shift REVIEW OF SYSTEMS: no headaches, no bleeding OBJECTIVE: VITAL SIGNS: vital signs noted, reviewed per the chart record. GENERAL: NAD, alert, calm HEENT: Normocephalic and atraumatic. NECK: Supple. Throat midline. LUNGS: Bilateral air entry, mostly clear. CARDIOVASCULAR: S1 and S2. No murmurs, rubs, or gallops. ABDOMEN: Soft, postoperative EXTREMITIES: No clubbing, no cyanosis, no edema. INTEGUMENT: No rash or purpura. LABORATORY DATA: 4.0 potassium, creatinine 1.1. 20 white count, 31 hematocrit, 68 platelets. 20 bicarbonate. INR 3.14 IMPRESSION AND PLAN: 1. Postoperative respiratory insufficiency. Extubated 2. Small bowel gangrene. 3. Acute mesenteric vein thrombosis. 4. Other nonspecific abdominal lymphadenopathy. 5. Postoperative state, s/p exploratory laparotomy and small bowel resection. 6. Possible cirrhosis. 7. Massive splenomegaly. 8. Hyperlipidemia. 9. Gastroesophageal reflux disease. 10. admit with thrombocytosis 11. anemia, Jehovahs Witness PO escalate diet per surgeon, FLD for now dc central line if everyone ok Abx for possible gangrene related peritonitis +/- other per ID Warfarin continue --jehovahs witness blood conservation strategies Glucose control continue slowly mobilize Thank you very much, Dr. Moura and Dr. Lloyd, for allowing me a chance to participate in the care of Mr. Alvarez. Please call for questions.
--- NOTE | 2019-02-01 22:42 | NUR ---
PRESSURE BANDAGE ON PICC LINE SITE IS C/D/I. NO PAIN REPORTED.
[2019-02-02] VITALS (9 sets, daily range): BP systolic 116–136; BP diastolic 60–81
[2019-02-02] MEDS: PANTOPRAZOL 40MG/SOD CHL 0.9% 50 ML IV SCH ×4 (01:23→16:38)
[2019-02-02] MEDS ORDERED: METRONIDAZOLE 500 MG TAB PO SCH (02:00)
[2019-02-02 06:21] LABS: BASOPHILS % 0.2 % (0.0-1.0); EOSINOPHILS # (AUTO) 0.1 (0.0-0.4); EOSINOPHILS % 1.1 % (0.0-6.0); HEMATOCRIT 31.4 % (38.2-49.6); HEMOGLOBIN 8.4 g/dL (14.0-18.0); LYMPHOCYTES # (AUTO) 0.8 (1.0-3.2); LYMPHOCYTES % 6.5 % (18.0-39.1); MEAN CORPUSCULAR HEMOGLOBIN 18.8 pg (28-32); MEAN CORPUSCULAR HGB CONC 26.8 g/dL (31-35); MEAN CORPUSCULAR VOLUME 70.2 fL (81-99); MONOCYTES # (AUTO) 0.9 (0.2-0.8); MONOCYTES % 7.2 % (4.4-11.3); NEUTROPHILS % 82.1 % (38.7-80.0); PLATELET COUNT 107 x10e3/uL (140-360); RED BLOOD COUNT 4.47 x10e6/uL (4.3-5.7); RED CELL DISTRIBUTION WIDTH 30.7 % (11.7-14.4)
[2019-02-02 07:06] LABS: LYMPHOCYTES % (MANUAL) 7 % (19-48); MONOCYTES % (MANUAL) 8 % (3.4-9.0); NEUTROPHILS % (MANUAL) 84 % (40-74); PLATELET ESTIMATE MODERATELY DECREASED
[2019-02-02 07:07] LABS: RBC MORPHOLOGY COMMENT ABNORMAL
[2019-02-02 07:08] LABS: HYPOCHROMASIA MODERATE
[2019-02-02] MEDS: CITRIC ACID/SODIUM CITRATE 30 ML UDC PO SCH ×2 (08:32→18:07)
[2019-02-02] MEDS: METRONIDAZOLE 500 MG TAB PO SCH ×2 (09:56→18:07)
--- NOTE | 2019-02-02 11:49 | NUR ---
Pulmonary Medicine DATE OF ENCOUNTER: 02/02/2019 SUBJECTIVE: BM 1-2 per shift soft, not full water RA fio2 on solids now REVIEW OF SYSTEMS: no headaches, no bleeding OBJECTIVE: VITAL SIGNS: vital signs noted, reviewed per the chart record. GENERAL: NAD, alert, calm HEENT: Normocephalic and atraumatic. NECK: Supple. Throat midline. LUNGS: Bilateral air entry, mostly clear. CARDIOVASCULAR: S1 and S2. No murmurs, rubs, or gallops. ABDOMEN: Soft, postoperative EXTREMITIES: No clubbing, no cyanosis, no edema. INTEGUMENT: No rash or purpura. LABORATORY DATA: INR 3.14, 12 wbc. 31 hct. IMPRESSION AND PLAN: 1. Small bowel gangrene. 2. Acute mesenteric vein thrombosis. 3. Other nonspecific abdominal lymphadenopathy. 4. Postoperative state, s/p exploratory laparotomy and small bowel resection. 5. Possible cirrhosis. 6. Massive splenomegaly. 7. Hyperlipidemia. 8. Gastroesophageal reflux disease. 9. admit with thrombocytosis 10. anemia, Jehovahs Witness PO escalate diet per surgeon, regular diet for now Abx for possible gangrene related peritonitis +/- other per ID Warfarin continue --jehovahs witness blood conservation strategies mobilize Thank you very much, Dr. Moura and Dr. Lloyd, for allowing me a chance to participate in the care of Mr. Alvarez. Please call for questions.
[2019-02-02 12:53] LABS: INR 4.04; PROTHROMBIN TIME 40.1 seconds (11.9-14.5)
--- NOTE | 2019-02-02 14:20 | NUR ---
Spoke with Dr. Aguilar at this time to let him know the PT and INR. Orders received to hold dose for today and recheck PT and INR. Also, he told me to let Dr. Lloyd know to hold discharge. Addendum: 02/02/19 at 2035 by Bill Fountain RN Orders received to hold 1700 dose of Coumadin. Orders to recheck PT/INR daily.
--- NOTE | 2019-02-02 17:57 | Progress Note ---
DATE: 02/02/[address] Oliverio Moura. SUBJECTIVE: Mr. Verde is doing well, recovering from a long and rough illness recently when he was found to have ischemic bowel, underwent surgical correction with subsequently rough course, which he recovered pretty well. Today, he is sitting in his bed, awake, alert, oriented, comfortable, has no complaint. He still have some loose bowel movement. Today is the first day on his GI soft diet. He is afebrile and hemodynamically stable. CURRENT MEDICATIONS: Including Flagyl, Bicitra, Zofran, Remeron, and Protonix. LABORATORY DATA: Sodium and potassium normal. BUN 41, creatinine 1.11, total bilirubin 5.2, albumin 2. Liver enzymes normal. Had liver biopsy unremarkable. Hemoglobin 8, hematocrit 31, platelets 107. Nothing to add to his case today except adding probiotic to his medication and we will continue to watch. Pradeep Hodges MD RD/MODL /[id number]
--- NOTE | 2019-02-02 19:20 | NUR ---
Bedside report walking rounds complete. Pt resting in bed and in no apparent distress. Pt at bedside. All safety measures ensured and pt call [place] near.
[2019-02-03] VITALS (8 sets, daily range): BP systolic 110–132; BP diastolic 60–90
[2019-02-03] MEDS: METRONIDAZOLE 500 MG TAB PO SCH ×2 (02:26→10:00)
[2019-02-03 06:49] LABS: INR 4.67; PROTHROMBIN TIME 44.8 seconds (11.9-14.5)
--- NOTE | 2019-02-03 07:05 | NUR ---
RECEIVED PT LYING IN BED WITH EYES OPEN AND TV ON. DENIES PAIN AT THIS TIME. RESP EVEN AND UNLABORED. CALL LIGHT WITHIN REACH.
--- NOTE | 2019-02-03 07:28 | NUR ---
Bedside report and walking rounds complete with day shift RN
[2019-02-03] MEDS: PANTOPRAZOLE SOD 40 MG TABEC PO SCH (08:26)
[2019-02-03] MEDS: CITRIC ACID/SODIUM CITRATE 30 ML UDC PO SCH ×2 (08:26→17:21)
[2019-02-03] MEDS: LACTOBACILLUS ACIDOPHILUS CAPSULE PO SCH ×2 (08:26→17:21)
--- NOTE | 2019-02-03 10:23 | NUR ---
PER CONTINUE TO HOLD COUMADIN, GOAL FOR INR IS 3.5. POSSIBLE D/C HOME TOMORROW IF INR TRENDING DOWN. IN FACILITY AGREES TO KEEP HIM ONE MORE DAY FOR MONITORING.
--- NOTE | 2019-02-03 10:26 | NUR ---
PER METRONIDAZOLE MAY CAUSE INCREASED EFFECTS OF COUMADIN AND WANTS THIS NURSE TO SEE IF WE CAN D/C METRONIDAZOLE. EBENEZER MCRAE WITH INFECTIOUS DISEASE IN FACILITY NOTIFIED AND AGREED TO D/C METRONIDAZOLE.
--- NOTE | 2019-02-03 14:19 | NUR ---
Nutrition Follow-up Note RD Recommendation(s) for Physician: - Changing diet to GI soft as medically appropriate - Rec Ensure Enlive BID to increase protein calorie intake Plan of Care: RD following, monitoring for tolerance and adequacy Nutrition reason for involvement: Follow up RD Assessment 02/03: Visited pt in the room. stated that pt was eating only a little bit. ~25-50% meal intake. Discussed menu options with . would like pt to have Ensure. Notified RN. Will continue to monitor and follow. (01/30) Visited pt in the room. Pt was still getting TPN at 60mL/hr. Plan to d/c TPN today (?). Pt has been on clear liquid x 3 days. Pt only consumed small amount of liquids and reports tolerating well. Pt denied any nausea or vomiting. LBM 01/29. No other complains at this time. RD provided education and handouts on GI soft diet as consulted. All questions have been answered. (01/27) Pt was discussed during AM rounds. TPN was started yesterday. NGT has been removed. Pt had 2 BM after Ducolax was given. Clear liquid diet has been ordered to start dinner tonight. Na, K, Phos WNL. Mg was elevated. BG was running between 170 180 today. Will continue to monitor and follow. (01/24) Pt was discussed during AM rounds. Pt remained intubated and ventilated. S/p exploratory laparotomy and small bowel resection on 01/23/2019. POD 1. Currently on IV lasix, heparin and abx. Propofol was off. Pt was awake and alert. Pt has been NPO x 5 days. Rec to initiate PN if unable to feed in 48hr. (01/21) Initial encounter with Pt. Pt was not able to provide a nutrition Hx due to being sedated and orally intubated on mechanical ventilation. Daughter present. Daughter states that Pt was a healthy eater and ate well [employer]. Denies any wt changes [employer]. No chewing or swallowing difficulty [employer]. No known food allergies. Cholelithiasis, SBO/gangrene of small bowel, S/P exploratory laparotomy with cholecystectomy, appendectomy, and small bowel resection. NGT in place. Principal Problems/Diagnoses: Small bowel gangrene PMH: GERD, hyperlipidemia, Fatty Liver. GI: Abdomen soft, non-tender, round, flatus + Skin: surgical abdominal wound Labs: (02/03) BUN 41 H, Ca 8.0 L (01/30) Glucose 159 H, Mg 2.3 H, Ca 8.2 L (01/27) BUN 27 H, Glucose 181 H, Ca 7.6 L, Mg 2.4 H (01/24) K 3.4 L Meds: protonix, probiotics, bicitra Ht:67 in. Wt:148.19lbs; 149lb; 152lb BMI:23.2kg/M2 IBW:148lbs Malnutrition Evaluation (01/21/19) The patient does not meet criteria for a specified degree of malnutrition at this time. Will re-evaluate at follow-up as appropriate. Nutrition Prescription (Diet Order): Regular diet Estimated Nutritional Needs: 2157-0203 calories/day (25-30kcal/kg/ BW) 67-101g protein/day (1-1.5g pro/kg/BW) Diet Adequacy: Not meeting calorie needs, not meeting protein needs Diet Education Needs Assessment: (01/30) Diet education indicated. Learner(s): and daughter Time spent: 20minutes Barriers: No barriers identified. Cultural/Language Modifications: Daughter speaks Yoruba. Readiness: Acceptance Method: Handouts, explanation Topics: GI soft diet Understanding/Compliance: Expect good understanding/compliance from pt. Will benefit from reinforcement. All questions have been answered. Nutrition Care Level: Mod Nutrition Diagnosis: Altered GI function related to cholelithiasis as evidenced by SBO/Exploratory laparotomy. Goal: Patient will meet 75-100% of estimated needs by follow up Progress: Progressing Interventions: Modified diet, supplement Monitoring/Evaluation: Total energy intake, Total protein intake, Modified diet, supplement, Weight change. Signed: Belén Colon, MS, RD, LD
[2019-02-03] MEDS ORDERED: ONDANSETRON HCL 4 MG ORAL DISINTEGRATING TAB PO PRN (15:15)
--- NOTE | 2019-02-03 18:47 | Progress Note ---
DATE: 02/03/2019 SUBJECTIVE: Doing better today, feeling more comfortable, tolerating his diet well, had three bowel movements, sitting on the side of the bed in company of his , and has no GI complaints. OBJECTIVE: VITAL SIGNS: Afebrile today 98, pulse 90, and blood pressure 132/72. No recent labs today. We added a probiotic to his medication regimen. Nothing to add from GI standpoint today. We will continue the current care. Pradeep Hodges MD RD/MODL /[id number]
--- NOTE | 2019-02-03 19:11 | NUR ---
Bedside report walking rounds complete. Pt resting in bed and in no apparent distress. All safety measures ensured and pt call [place] near.
--- NOTE | 2019-02-03 23:28 | NUR ---
Pulmonary Medicine DATE OF ENCOUNTER: 02/03/2019 SUBJECTIVE: bloating RA fio2 ate ok INR elevated today REVIEW OF SYSTEMS: no headaches, no bleeding OBJECTIVE: VITAL SIGNS: vital signs noted, reviewed per the chart record. GENERAL: NAD, alert, calm HEENT: Normocephalic and atraumatic. NECK: Supple. Throat midline. LUNGS: Bilateral air entry, mostly clear. CARDIOVASCULAR: S1 and S2. No murmurs, rubs, or gallops. ABDOMEN: Soft, postoperative EXTREMITIES: No clubbing, no cyanosis, no edema. INTEGUMENT: No rash or purpura. LABORATORY DATA: INR 4.67 IMPRESSION AND PLAN: 1. Small bowel gangrene. 2. Acute mesenteric vein thrombosis. 3. Other nonspecific abdominal lymphadenopathy. 4. Postoperative state, s/p exploratory laparotomy and small bowel resection. 5. Possible cirrhosis. 6. Massive splenomegaly. 7. Hyperlipidemia. 8. Gastroesophageal reflux disease. 9. admit with thrombocytosis 10. anemia, Jehovahs Witness PO regular diet for now follow diarrhea/BMs Abx for possible gangrene related peritonitis +/- other per ID Warfarin continue --jehovahs witness blood conservation strategies --adjustments in warfarin per hematology mobilize Thank you very much, Dr. Moura and Dr. Lloyd, for allowing me a chance to participate in the care of Mr. Alvarez. Please call for questions.
[2019-02-04] VITALS (7 sets, daily range): BP systolic 116–140; BP diastolic 69–85
[2019-02-04 05:43] LABS: BASOPHILS # (AUTO) 0.1 (0.0-0.1); BASOPHILS % 0.4 % (0.0-1.0); EOSINOPHILS # (AUTO) 0.1 (0.0-0.4); EOSINOPHILS % 1.1 % (0.0-6.0); HEMATOCRIT 32.7 % (38.2-49.6); HEMOGLOBIN 8.9 g/dL (14.0-18.0); LYMPHOCYTES # (AUTO) 0.7 (1.0-3.2); LYMPHOCYTES % 5.6 % (18.0-39.1); MEAN CORPUSCULAR HEMOGLOBIN 18.9 pg (28-32); MEAN CORPUSCULAR HGB CONC 27.2 g/dL (31-35); MEAN CORPUSCULAR VOLUME 69.6 fL (81-99); MONOCYTES # (AUTO) 0.9 (0.2-0.8); MONOCYTES % 7.4 % (4.4-11.3); NEUTROPHILS # (AUTO) 10.1 (2.1-6.9); NEUTROPHILS % 84.1 % (38.7-80.0); PLATELET COUNT 177 x10e3/uL (140-360); RED CELL DISTRIBUTION WIDTH 30.9 % (11.7-14.4)
[2019-02-04 05:52] LABS: INR 4.73
[2019-02-04 05:56] LABS: ANION GAP 16.5 mmol/L (8-16); BLOOD UREA NITROGEN 30 mg/dL (7-26); BUN/CREATININE RATIO 32 (6-25); CALCIUM 7.8 mg/dL (8.4-10.2); CARBON DIOXIDE 18 mmol/L (22-29); CHLORIDE 111 mmol/L (98-107); CREATININE, SERUM 0.95 mg/dL (0.72-1.25); EST GLOMERULAR FILTRATION RATE > 60 ML/MIN (60-); GLUCOSE 102 mg/dL (74-118); POTASSIUM 3.5 mmol/L (3.5-5.1); SODIUM 142 mmol/L (136-145)
[2019-02-04 06:00] LABS: PROTHROMBIN TIME 45.3 seconds (11.9-14.5)
--- NOTE | 2019-02-04 07:30 | NUR ---
Bedside report walking rounds complete with day shift RN.
[2019-02-04 07:32] LABS: ELLIPTOCYTE, RBC SLIGHT; HYPOCHROMASIA SLIGHT; MICROCYTOSIS MODERATE; PLATELET ESTIMATE ADEQUATE; RBC MORPHOLOGY COMMENT ABNORMAL
[2019-02-04 07:34] LABS: OVALOCYTES FEW; PLATELET MORPHOLOGY COMMENT FEW EDTA CLUMPING; POLYCHROMASIA FEW
[2019-02-04 07:35] LABS: ANISOCYTOSIS MODERATE
[2019-02-04] MEDS: CITRIC ACID/SODIUM CITRATE 30 ML UDC PO SCH (09:00)
[2019-02-04] MEDS: PANTOPRAZOLE SOD 40 MG TABEC PO SCH (09:11)
[2019-02-04] MEDS: LACTOBACILLUS ACIDOPHILUS CAPSULE PO SCH ×2 (09:11→16:46)
[2019-02-04] MEDS ORDERED: PHYTONADIONE 1 MG/0.5 ML AMP IM NR (13:30)
--- NOTE | 2019-02-04 13:44 | NUR ---
Pulmonary Medicine DATE OF ENCOUNTER: 02/04/2019 SUBJECTIVE: k 3.5, cr 0.95. wbc 12, hct 33, inr 4.73 REVIEW OF SYSTEMS: no headaches, no rash OBJECTIVE: VITAL SIGNS: vital signs noted, reviewed per the chart record. GENERAL: NAD, alert, calm HEENT: Normocephalic and atraumatic. NECK: Supple. Throat midline. LUNGS: Bilateral air entry, mostly clear. CARDIOVASCULAR: S1 and S2. No murmurs, rubs, or gallops. ABDOMEN: Soft, postoperative EXTREMITIES: No clubbing, no cyanosis, no edema. INTEGUMENT: No rash or purpura. LABORATORY DATA: INR 4.73 IMPRESSION AND PLAN: 1. Small bowel gangrene, secondary peritonitis mild. 2. Acute mesenteric vein thrombosis. 3. Other nonspecific abdominal lymphadenopathy. 4. Postoperative state, s/p exploratory laparotomy and small bowel resection. 5. Possible cirrhosis. 6. Massive splenomegaly. 7. Hyperlipidemia. 8. Gastroesophageal reflux disease. 9. admit with thrombocytosis 10. anemia, Jehovahs Witness regular diet continue follow diarrhea/BMs dc Abx, follow up per ID Warfarin continue --jehovahs witness blood conservation strategies --adjustments in warfarin per hematology mobilize Thank you very much, Dr. Moura and Dr. Lloyd, for allowing me a chance to participate in the care of Mr. Alvarez. Please call for questions.
--- NOTE | 2019-02-04 16:37 | Progress Note ---
DATE: 02/04/2019 SUBJECTIVE: Doing well. No GI change. Awake, alert, and oriented. Comfortable, tolerating his diet well, had several bowel movements. His recent lab tests; white cell count has improved down to 12, hemoglobin 8.9, hematocrit 32, and platelets 177. BUN 30, creatinine 0.95, sodium 142, and potassium 3.5. OBJECTIVE: VITAL SIGNS: Blood pressure 120/69, pulse 88, and temperature 97. Nothing to add from GI standpoint. We will continue current care. Pradeep Hodges MD RD/STEWL /[id number]
--- NOTE | 2019-02-04 19:14 | NUR ---
Bedside report and walking rounds complete. Pt resting in bed and in no apparent distress. Family at bedside. All safety measures ensured and pt call [place] near. Pt has no complaints of pain.
[2019-02-05] VITALS (8 sets, daily range): BP systolic 103–137; BP diastolic 65–87
[2019-02-05 06:06] LABS: INR 1.48; PROTHROMBIN TIME 18.5 seconds (11.9-14.5)
--- NOTE | 2019-02-05 07:08 | NUR ---
Bedside report and walking rounds complete with day shift RN.
--- NOTE | 2019-02-05 07:15 | NUR ---
Morning rounds completed. Patient resting in bed, no c/o of pain or signs of distress. at bedside. Bed locked and in low position, call light placed within reach. Patient instructed to call for assistance if needed. Will continue to monitor.
[2019-02-05] MEDS: LACTOBACILLUS ACIDOPHILUS CAPSULE PO SCH ×2 (08:52→16:37)
[2019-02-05] MEDS: PANTOPRAZOLE SOD 40 MG TABEC PO SCH (08:52)
--- NOTE | 2019-02-05 12:44 | NUR ---
Pulmonary Medicine DATE OF ENCOUNTER: 02/05/2019 SUBJECTIVE: bm x 2 at night no dizzyness when walking eating well k 3.5 inr 1.48 REVIEW OF SYSTEMS: no headaches, no rash OBJECTIVE: VITAL SIGNS: vital signs noted, reviewed per the chart record. GENERAL: NAD, alert, calm HEENT: Normocephalic and atraumatic. NECK: Supple. Throat midline. LUNGS: Bilateral air entry, mostly clear. CARDIOVASCULAR: S1 and S2. No murmurs, rubs, or gallops. ABDOMEN: Soft, postoperative EXTREMITIES: No clubbing, no cyanosis, 1-2+ edema. INTEGUMENT: No rash or purpura. LABORATORY DATA: INR 4.73 IMPRESSION AND PLAN: 1. Small bowel gangrene, secondary peritonitis mild. 2. Acute mesenteric vein thrombosis. 3. Other nonspecific abdominal lymphadenopathy. 4. Postoperative state, s/p exploratory laparotomy and small bowel resection. 5. Possible cirrhosis. 6. Massive splenomegaly. 7. Hyperlipidemia. 8. Gastroesophageal reflux disease. 9. admit with thrombocytosis 10. anemia, Jehovahs Witness regular diet continue follow BMs Warfarin continue --jehovahs witness blood conservation strategies --adjustments in warfarin per hematology mobilize Thank you very much, Dr. Moura and Dr. Lloyd, for allowing me a chance to participate in the care of Mr. Alvarez. Please call for questions.
[2019-02-05] MEDS: WARFARIN SOD 1 MG TAB PO SCH (16:36)
--- NOTE | 2019-02-05 18:58 | NUR ---
Bedside report given to night nurse. Patient in stable condition.
--- NOTE | 2019-02-05 19:40 | NUR ---
PT IN BED, FAMILY AT BEDSIDE, CALL LIGHT IN REACH, VS STABLE, NO DISTRESS NOTED, INCISION OPEN TO AIR, NO DRAINAGE, IV INTACT, NO OTHER NEEDS, TOLD TO CALL FOR NEEDS
[2019-02-06] VITALS (8 sets, daily range): BP systolic 121–131; BP diastolic 73–85
--- NOTE | 2019-02-06 | NUR ---
VS STABLE, NO DISTRESS NOTED, FAMILY AT BEDSIDE, TOLD TO CALL FOR NEEDS
--- NOTE | 2019-02-06 04:00 | NUR ---
PT IN BED, NO DISTRESS NOTED, CALL LIGHT IN REACH, FAMILY AT BEDSIDE, VS STABLE, TOLD TO CALL FOR NEEDS
[2019-02-06 05:39] LABS: INR 1.31; PROTHROMBIN TIME 16.9 seconds (11.9-14.5)
[2019-02-06] MEDS: PANTOPRAZOLE SOD 40 MG TABEC PO SCH (08:23)
[2019-02-06] MEDS: LACTOBACILLUS ACIDOPHILUS CAPSULE PO SCH ×2 (08:23→17:24)
--- NOTE | 2019-02-06 09:17 | NUR ---
PATIENT INR: 1.48 -> 1.31. SPOKE WITH [facility]ENNA SY/BEDSIDE NURSE - SHE STATES PATIENT ONLY ON COUMADIN. DISCUSSED POSSIBLE DC HOME WITH HH FOR DAILY PT/INR AND IF BRID[place]ING PATIENT WITH LOVENOX IS IN THE POC FOR PATIENT BY MD. SHE STATES SHE WILL CALL THE DOCTOR TO DISCUSS DROP IN INR AND DC PLAN OPTIONS. CM WILL CONTINUE TO FOLLOW FOR ONGOING ASSESSMENT OF DC NEEDS.
--- NOTE | 2019-02-06 13:12 | NUR ---
Pulmonary Medicine DATE OF ENCOUNTER: 02/06/2019 SUBJECTIVE: bm x 4 atnight walking no dizziness RA fio2 REVIEW OF SYSTEMS: no headaches, no rash OBJECTIVE: VITAL SIGNS: vital signs noted, reviewed per the chart record. GENERAL: NAD, alert, calm HEENT: Normocephalic and atraumatic. NECK: Supple. Throat midline. LUNGS: Bilateral air entry, mostly clear. CARDIOVASCULAR: S1 and S2. No murmurs, rubs, or gallops. ABDOMEN: Soft, postoperative EXTREMITIES: No clubbing, no cyanosis, 1-2+ edema. INTEGUMENT: No rash or purpura. LABORATORY DATA: 1.31 inr IMPRESSION AND PLAN: 1. Small bowel gangrene, secondary peritonitis mild. 2. Acute mesenteric vein thrombosis. 3. Other nonspecific abdominal lymphadenopathy. 4. Postoperative state, s/p exploratory laparotomy and small bowel resection. 5. Possible cirrhosis. 6. Massive splenomegaly. 7. Hyperlipidemia. 8. Gastroesophageal reflux disease. 9. admit with thrombocytosis 10. anemia, Jehovahs Witness regular diet continue follow BMs Warfarin continue --jehovahs witness blood conservation strategies --adjustments in warfarin per hematology mobilize Thank you very much, Dr. Moura and Dr. Lloyd, for allowing me a chance to participate in the care of Mr. Alvarez. Please call for questions.
--- NOTE | 2019-02-06 15:45 | Consultation ---
DATE OF CONSULTATION: 01/20/2019 HISTORY OF PRESENT ILLNESS: Mr. Verde is a 58-year-old male who was referred to me for evaluation and treatment of SMV thrombosis. The patient had presented with abdominal pain. The patient also had presented with shortness of breath. His abdominal pain has been going on for approximately a week. Subsequently, the patient had a CAT scan of the abdomen, which was suggestive of cirrhosis of liver and large spleen. Subsequently, the patient had laparotomy, which showed the patient to have gangrenous bowel. Subsequently, referred to me for further evaluation and treatment. HISTORY OF PAST ILLNESS: History of GERD, history of fatty metamorphosis of the liver, history of hyperlipidemia. SOCIAL HISTORY: Noncontributory. FAMILY HISTORY: Noncontributory. ALLERGIES: IODINE. MEDICATIONS: At this time: 1. Heparin. 2. Zosyn. 3. Dextrose. 4. Ondansetron. 5. Protonix. 6. Hydromorphone. 7. Sodium chloride. REVIEW OF SYSTEMS: HEENT: Normal. CARDIAC: Normal. RESPIRATORY: Normal. GI: SMV thrombosis, gangrenous bowel. : Normal. MUSCULOSKELETAL: Normal. SKIN AND BREASTS: Normal. NEUROENDOCRINE: Normal. PHYSICAL EXAMINATION: GENERAL: Remarkable built male, intubated at the present time. NECK: No palpable adenopathy. HEART: Within normal limits. LUNGS: Clear. ABDOMEN: Midline scar surgery. RECTAL: Deferred. CENTRAL NERVOUS SYSTEM: Essentially normal. EXTREMITIES: Essentially normal. LABORATORY DATA: Hemoglobin of 9.1, hematocrit 32.8, white count of 12,670. Platelets are reported at 989,000 which went up to 1,146,000 the next day. MCV low at 62.9, MCHC low at 27.7, RDW very high at 20.0, retic response is 2.1. Chemistry showed sodium of 139, potassium 4.1, chloride 103, CO2 of 23, BUN 21, creatinine 1.37, glucose 106, magnesium high at 2.2, alkaline phosphatase high at 170, SGPT 17, SGOT 18, total protein is 8, albumin 3.4, globulins 4.6, B12 level high at 943, folic acid level 9.7. Repeat globulins were low at 3.2 on 01/22/2019. IMAGING: Small bowel dilatation, possibility of obstruction was raised. IMPRESSION: 1. Cirrhosis of liver. 2. Splenomegaly. 3. Splenic vein thrombosis. 4. Gallstones. 5. Iron deficiency anemia. 6. 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 7. Gangrenous bowel. 8. Status post intubation. PLAN, COMMENTS, AND SUGGESTIONS: Suggest Agrylin to keep the platelets less than 500,000. Liver biopsy also is suggested. The patient is going to go for end-to-end anastomosis. I will confine myself to Hematology. INFeD will be given. This is a Jehovah Witness and I will abide by his moravian believes. Thank you very much for allowing me to participate in the management of this patient. MD PATRICK Quezada/CYNTHIA /[id number] cc: MD Easton Mcdaniels MD George M Nassif, MD Maurice S Haddad, MD
[2019-02-06] MEDS: WARFARIN SOD 1 MG TAB PO SCH (17:24)
--- NOTE | 2019-02-06 19:10 | NUR ---
HANDOFF REPORT TO ONCOMING NURSE, PATIENT IN ROOM ALERT AND ORIENTED SITTING IN CHAIR, VERBALIZING NEEDS. NURSE MADE AWARE TO ADMINISTER CIPRO 1800 DOSE. Addendum: 02/06/19 at 1948 by Jayshree Escamilla RN DISCARD NOTE ENTERED INCORRECT PATIENT.
--- NOTE | 2019-02-06 19:10 | NUR ---
HANDOFF REPORT TO ONCOMING NURSE, PATIENT IN BED VERBALIZING NEEDS AT BEDSIDE.
[2019-02-06] MEDS: ACETAMINOPHEN 325 MG TAB PO PRN (21:19)
[2019-02-07] VITALS (8 sets, daily range): BP systolic 107–133; BP diastolic 57–79
[2019-02-07 06:09] LABS: INR 1.22
--- NOTE | 2019-02-07 06:38 | NUR ---
report given to day nurse. patient is resting comfortably in bed. bed is in lowest position and call [place] is within reach.
--- NOTE | 2019-02-07 07:07 | NUR ---
pt lying supine in bed resp even and unlabored pain has no c/o pain when asked , call light in reach , pt has family member at bedside no distress noted at this time.
[2019-02-07] MEDS: PANTOPRAZOLE SOD 40 MG TABEC PO SCH (09:11)
[2019-02-07] MEDS: LACTOBACILLUS ACIDOPHILUS CAPSULE PO SCH ×2 (09:11→16:57)
--- NOTE | 2019-02-07 12:39 | NUR ---
Pulmonary Medicine DATE OF ENCOUNTER: 02/07/2019 SUBJECTIVE: FEW bm INR low, d/c planning for shots? REVIEW OF SYSTEMS: no headaches, no rash OBJECTIVE: VITAL SIGNS: vital signs noted, reviewed per the chart record. GENERAL: NAD, alert, calm HEENT: Normocephalic and atraumatic. NECK: Supple. Throat midline. LUNGS: Bilateral air entry, mostly clear. CARDIOVASCULAR: S1 and S2. No murmurs, rubs, or gallops. ABDOMEN: Soft, postoperative EXTREMITIES: No clubbing, no cyanosis, 1-2+ edema. INTEGUMENT: No rash or purpura. LABORATORY DATA: 1.22 inr IMPRESSION AND PLAN: 1. Small bowel gangrene, secondary peritonitis mild. 2. Acute mesenteric vein thrombosis. 3. Other nonspecific abdominal lymphadenopathy. 4. Postoperative state, s/p exploratory laparotomy and small bowel resection. 5. Possible cirrhosis. 6. Massive splenomegaly. 7. Hyperlipidemia. 8. Gastroesophageal reflux disease. 9. admit with thrombocytosis 10. anemia, Jehovahs Witness regular diet continue follow BMs Warfarin continue --jehovahs witness blood conservation strategies --adjustments in warfarin per hematology. patient tells me ?lovenox bridging is being considered mobilize Thank you very much, Dr. Moura and Dr. Lloyd, for allowing me a chance to participate in the care of Mr. Alvarez. Please call for questions.
[2019-02-07] MEDS ORDERED: POTASSIUM CHLORIDE 20 MEQ TAB CR PO ONE (13:45)
--- NOTE | 2019-02-07 15:25 | NUR ---
CM RECEIVED ORDER FOR HOME HEALTH SERVICES. CM TO BEDSIDE TO DISCUSS CHOICE WITH PATIENT/FAMILY.
--- NOTE | 2019-02-07 16:02 | NUR ---
CM TO BEDSIDE TO DISCUSS HOME HEALTH CHOICE. SPOKE WITH PATIENT AND DAUGHTER, CLINTON TOURE ([phone]). FAMILY HAS CHOSEN [facility] (F:[phone]; O: [phone]). CM FAXED REFERRAL PACKET. CLINTON'S NUMBER GIVEN FOR CONTACT TO ARRANGE HOME VISIT.
--- NOTE | 2019-02-07 16:16 | NUR ---
CM SPOKE WITH DR. Scar JETER AND HE HAS UPDATED ORDERS TO THE FOLLOWING: CHECK PT/INR EVERY OTHER DAY WHILE ON LOVENOX INJ. STOP LOVENOX WITH INR IS > 2-3. UPDATED ORDER FAXED TO [facility] ([phone])
--- NOTE | 2019-02-07 16:54 | NUR ---
HOME HEALTH DISCHARGE NOTE PATIENT ADDRESS WHERE SERVICE WILL BE RECEIVED: [address] [place] [id number] PATIENT CONTACT NUMBER: BARBIE TOURE: [phone] NAME OF HOME HEALTH COMPANY: [facility] [employer] TELEPHONE/FAX NUMBER OF COMPANY: O: [phone] F: [phone] SERVICES TO RECEIVE: SKILL NURSE VISITS TO HOME FOR ANTICOAGULATION EDUCATION AND LAB DRAWS EVERY OTHER DAY ANTICIPATED DATE SERVICES WILL BEGIN: 02/09/19 CM REQUESTED FOR FAMILY MEMBER TO Please call the company above if you have not received a call to schedule a home visit within 24 hours of discharge.
[2019-02-07] MEDS: WARFARIN SOD 1 MG TAB PO SCH (16:57)
[2019-02-07] MEDS ORDERED: SODIUM BICARBONATE 650 MG TAB PO SCH (17:00)
--- NOTE | 2019-02-07 17:19 | NUR ---
CLEMENT RECEIVED CALL FROM CECILIA/[facility]. SHE STATES THERE IS A FINANCIAL RESPONSIBILITY BY THE PATIENT. CLEMENT CALLED CLINTON/PATIENT'S DAUGHTER ON CONFERENCE CALL WITH CECILIA - CECILIA EXPLAINED COSTS. CLINTON STATES SHE UNDERSTANDS COST AND IS WILLING TO PAY. ALL SERVICES ARE IN PLACE FOR PATIENT TO [facility] TODAY ONCE CLEARED BY .
[2019-02-07] MEDS ORDERED: LOVENOX60 MG/0.6 SC (17:34)
[2019-02-07] MEDS ORDERED: COUMADIN1 MG PO (17:34)
--- NOTE | 2019-02-07 19:15 | NUR ---
report given to oncoming nurse, pt stable.
--- NOTE | 2019-02-07 19:16 | NUR ---
WALKING ROUNDS PERFORMED, RECEIVED PT LAYING SEMI FOWLERS IN BED, AAOX3, RR EVEN AND NON-LABORED, ON ROOM AIR. NO S/SX OF DISTRESS NOTED. LEFT PT LAYING SEMI FOWLERS IN BED, BED IN LOW LOCKED POSITION, SIDE RAILS UPX2, CALL LIGHT AND PHONE WITHIN REACH.
--- NOTE | 2019-02-07 19:48 | NUR ---
PT TRANSPORTED BY WHEELCHAIR TO [facility], PT IN STABLE CONDITION, SO S/SX OF DISTRESS NOTED.
--- NOTE | 2019-02-21 16:35 | Discharge Summary ---
CHIEF COMPLAINT: Upper abdominal discomfort and bloating. FINAL DIAGNOSES: Mesenteric venous thrombosis, anemia of blood loss, gangrene small bowel, status post exploratory procedure with partial resection. HOSPITAL COURSE: A 58-year-old male with known history of hyperlipidemia, GERD, brought to the ER with a 1-week history of upper abdominal discomfort and bloating, worse after eating. There has been nausea, but no diarrhea. Underwent review and evaluation in the emergency room. The patient was demonstrating moderate right upper quadrant tenderness, questionable rebound tenderness. Blood studies and x-rays were performed. The patient admitted to facility for treatment regarding upper abdominal pain, cholelithiasis, GERD, hyperlipidemia. We began n.p.o. status, we will obtain a HIDA scan and request a General Surgery consult. The patient had surgery on 01/23/[address] Lloyd, General Surgery. Consultants; Dr. Ogden, Pulmonary, due to respiratory insufficiency. This is following exploratory procedure. His impression after review was postoperative respiratory insufficiency, metabolic acidosis, possible evolving hyperkalemia small bowel gangrene, mesenteric vein thrombosis, possible cirrhosis, massive splenomegaly. The patient is currently vented postprocedure. He states that the patient consult due to the issues of peritonitis, ischemic gut. His review reveals that he is status post 2 exploratory laparotomies for gangrenous bowel, concerned about spillage and peritonitis. He will be on cefepime 1 g q.8., Flagyl [address] Pike was called in for consult as well towards the end of his stay regarding SMV thrombosis with . With his review of the patient, his impression was cirrhosis of liver with splenomegaly, splenic vein thrombosis, iron deficiency anemia secondary to thrombocytopenia versus ET. Suggest Agrylin to keep the platelets less than 500,000. Liver biopsy is also a suggestion. The patient is scheduled to go for an end-to-end anastomosis. NSAID will be addressed as well. Regarding his anemia status, the patient is a [employer] and Dr. Pike will be abiding by the shinto believes. Once admitted, the patient was also undergoing GI review by Dr. Oliverio Moura due to the findings of anemia with cholelithiasis. The patient has been having history of belching, dark stools in recent past, history of constipation and with his review of the data, his findings were upper abdominal pain radiating to the back, history of belching, findings of cholelithiasis with decreased ejection fraction. We will be beginning Protonix 40 mg b.i.d. IV. He is under following review with General Surgery. Anemia with issues of macrocytic indices, will be requesting iron studies. History of colon polyps on colonoscopy in 2011, will need a colonoscopy electively. He was on the Med-Surg floor, was n.p.o. status. Still complaining of generalized abdominal pain, nausea. He was receiving cefepime IV, IV fluids, medications for pain, PPIs. Lab watch is on the way. Studies were showing evidence of biliary dyskinesia. We will be continuing to address analgesics, maintain n.p.o. status, continue IV antibiotics. Followup on diagnostic x-rays. With the initial data findings, the patient was taken to surgery by Dr. Lloyd for concerns of mesenteric venous thrombosis. The patient underwent exploratory laparotomy with small bowel resection. Postprocedure, the patient was in ICU, continued to be maintained on vent. He was having issues with iron deficiency anemia, issues with platelets. Continued to be recovering from his exploratory lap. His platelet counts were running elevated. He was having issues of hypersplenism and further surgery discussions were made for a 2nd intervention for repeat exploratory laparotomy. With the elevated platelets, the patient was undergoing medication control to keep his platelet counts down per Dr. Pike, and he is on conscious sedation while venting. He was running a low hemoglobin, but he was undergoing INFeD injections. 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 Also on heparin drip to help control the aggressive platelets. He was taken back to surgery on 01/23/[address] Lloyd. The diagnosis was mesenteric venous thrombosis, postop the same. No new ischemic bowel. Procedure was exploratory laparotomy, small-bowel resection with anastomosis and biopsy of right lobe of the liver. He was being maintained in ICU post 2nd procedure. Continued to receive Procrit and INFeD for Hematology support per Dr. Pike's management. He has had an NG tube placed while in the facility. Continued to recover. Discussions were being made for discharge planning with home health Home Health whereas field nurse visiting. He will be undergoing anticoagulation education. He will be undergoing lab draws every other day. He was discharged in stable condition. He will continue on slowly improved GI soft diet as tolerated. He will be following up with me in my office in the next 2-3 weeks. He will also be following up with Dr. Lloyd as an outpatient within 2-3 weeks, Dr. Pike's office per his instructions, Dr. Ogden's office per his instructions. He will be continued on subcu daily, Coumadin 1 mg p.o. daily under the care of Home Health. Dictated by CHICHO Rosas MD SALMA Mcdaniels/CYNTHIA /[id number]
--- NOTE | 2019-03-22 14:16 | Operative Report ---
DATE OF PROCEDURE: 01/20/2019 SURGEON: Easton Lloyd MD PREOPERATIVE DIAGNOSES: Acute surgical abdomen, rule out cholecystitis versus appendicitis. POSTOPERATIVE DIAGNOSES: Mesenteric venous thrombosis, cholelithiasis, splenomegaly, rule out malignancy. OPERATIONS PERFORMED: Laparoscopy, exploratory laparotomy, and small bowel resection. ASSISTANTS: Jeffrey Lloyd MD and JERO Arias. ANESTHESIA: General. COMPLICATIONS: None. ESTIMATED BLOOD LOSS: 700 mL. DESCRIPTION OF PROCEDURE: With the patient lying in bed in the supine position, under good general endotracheal anesthesia, the abdomen was prepped with Betadine solution and draped in the usual manner. A Veress needle was introduced into the umbilicus and pneumoperitoneum was established without any difficulty. An 11 mm trocar was placed into the umbilicus and a 10 mm video laparoscope was placed into the intraabdominal cavity, immediately upon entering the abdominal cavity. Laparoscopy revealed that there was some grossly gangrenous bowel present and there was a lot of free fluid into the abdominal cavity and we decided to go ahead and open the abdomen to be able to thoroughly explore the cause of the gangrenous bowel. The trocar was removed and a midline incision was then made, carried down through the subcutaneous tissue to the midline fascia. The peritoneum was opened and the abdomen was entered. Upon entering the abdominal cavity, exploration revealed some fluid in the abdominal cavity, which was aspirated. The patient had a massive spleen, that extended all the way down to the left lower quadrant. The gallbladder did contain some stones. There was some cirrhotic changes of the liver. The exploration of the small bowel at this point revealed the presence of roughly about half of the small bowel was gangrenous. There was enlarged mesenteric adenopathy present. There was obvious clots that could be seen in the veins of the mesentery of the small bowel. We decided to go ahead and do a resection with a second-look operation later. The bowel that was grossly gangrenous was then divided with an application of a MANA-75 stapler proximally and distally. The mesentery was slowly and carefully taken down to include the very large lymph nodes that were present. There were numerous clots that emanated from the veins. There was actually good arterial bleeding coming into the areas, it was clearly mesenteric venous thrombosis. All of the bowel that was clearly gangrenous was then resected and sent for pathological examination. The abdomen was then copiously irrigated and perfect hemostasis was ascertained. The patient was heparinized in the operating room. We decided at this point not to do any kind of anastomosis since we were going to bring back the patient. There was a small bowel distally. We did not want to take the chance of losing any more small bowel at the terminal ileum and potentially losing the ileocecal valve. The abdomen was then closed in layers with a running suture of #1 Vicryl for the midline fascia and the skin was closed with clips. A dressing was applied. The sponge, lap, and needle counts were correct. The patient tolerated the procedure well and returned to the recovery room in critical condition. MD JONA Ibarra/CYNTHIA /[id number]
--- NOTE | 2019-03-22 14:52 | Consultation ---
DATE OF CONSULTATION: 01/20/2019 Surgical Consultation REASON FOR CONSULTATION: Abdominal pain. HISTORY OF PRESENT ILLNESS: This 58-year-old male was admitted to the hospital after presenting to the emergency room with about a 1-week history of abdominal pain that had become progressively worse. This was associated with some nausea and vomiting and abdominal distention. The patient became much worse and for that reason he came to the hospital and was admitted. Ultrasound of the abdomen and CAT scan that were done showed the patient to have gallstones and we were thus called to see the patient in consultation. PAST MEDICAL HISTORY: Otherwise unremarkable. ALLERGIES: NONE. REVIEW OF SYSTEMS: Unremarkable. MEDICATIONS: Please refer to MAR. PHYSICAL EXAMINATION: GENERAL: At the time that we saw the patient revealed a male, lying in bed, in some moderate distress, complaining of abdominal pain. VITAL SIGNS: He was afebrile. His vital signs were stable. HEAD, EARS, EYES, NOSE, AND THROAT: Showed no acute inflammation. NECK: No nodes, masses, or bruits. LUNGS: Clear to auscultation. ABDOMEN: Distended, diffusely tender with guarding and rebound present. EXTREMITIES: Good pulses bilaterally. ASSESSMENT: Acute abdominal pain with acute abdomen, atypical of cholecystitis, rule out appendicitis. PLAN: Plan will be laparoscopy and possible laparotomy. MD JONA Ibarra/CYNTHIA /[id number]
--- NOTE | 2019-04-05 16:46 | Operative Report ---
DATE OF PROCEDURE: 01/23/2019 SURGEON: Easton Lloyd MD PREOPERATIVE DIAGNOSIS: Mesenteric venous thrombosis with need for second-look operation. POSTOPERATIVE DIAGNOSIS: Mesenteric venous thrombosis with no new signs of ischemic bowel. OPERATIONS PERFORMED: Exploratory laparotomy, small bowel resection with anastomosis and biopsy of the right lobe of the liver. ASSISTANTS: 1. Jeffrey Lloyd MD. 2. JERO Singh. ANESTHESIA: General endotracheal. COMPLICATIONS: None. ESTIMATED BLOOD LOSS: 50 mL. DESCRIPTION OF PROCEDURE: With the patient lying in bed in the supine position under good general endotracheal anesthesia, the abdomen was prepped with Betadine solution and draped in the usual manner. The midline clips were then removed and a previous midline incision was then opened and the abdomen was then entered. Upon entering the abdominal cavity, some serous fluid was encountered. There was no bloody fluid present. Upon exploration of the abdominal cavity, the small bowel was run from one end to the other. There was no new signs of ischemic bowel present. The two ends of the previously stapled ileum and jejunum were found to be viable. The right colon also appeared to be viable and we decided thus to go ahead and perform an anastomosis of the jejunum to the terminal ileum roughly about 5 or 6 inches proximal to the ileocecal valve. Two small openings were made in the bowel and there was good blood flow. The anastomosis was performed with an application of a MANA-75 stapler and the remaining opening was closed with a TA-60 stapler. Gloves and instruments were changed. The anastomosis was then reinforced with 3-0 silk and the mesenteric rent was closed with a running suture of 2-0 Vicryl. A wedge resection of the right lobe of the liver was then performed to sent for pathological examinations to rule out liver cirrhosis. After this was done, the abdomen was copiously irrigated. Perfect hemostasis was ascertained. Again, the bowel was inspected throughout and all the small bowel and colon that were present appeared to be viable. The abdomen was then closed in layers. The peritoneum was closed with a running suture of #1 Vicryl. The midline fascia was closed with a running suture of #1 Vicryl and the skin was closed with clips. A dressing was applied. The sponge, lap, and needle count was correct. The patient tolerated the procedure well and returned to the recovery room in stable condition. MD JONA Ibarra/CYNTHIA /[id number]
== END 2019-02-07 19:48 | disposition home health service (06) | DRG 853 ==
LOC: ER 09:11 → ERHOLD 12:07 → MED/SURG3 13:53 → ICU 01-20 14:44 → MED/SURG 01-28 16:03
PROC: 0BH17EZ Insertion of Endotracheal Airway into Trachea, Via Natural or Artificial Opening (ICD-10-PCS; 2019-01-20)
PROC: 5A1945Z Respiratory Ventilation, 24-96 Consecutive Hours (ICD-10-PCS; 2019-01-20)
PROC: 0DJ04ZZ Inspection of Upper Intestinal Tract, Percutaneous Endoscopic Approach (ICD-10-PCS; 2019-01-20)
PROC: 0DB80ZZ Excision of Small Intestine, Open Approach (ICD-10-PCS; principal; 2019-01-20 10:30)
PROC: 0FB10ZX Excision of Right Lobe Liver, Open Approach, Diagnostic (ICD-10-PCS; 2019-01-23)
PROC: 0D1 Gastrointestinal System, Bypass (ICD-10-PCS; 2019-01-23)
PROC: 02HV33Z Insertion of Infusion Device into Superior Vena Cava, Percutaneous Approach (ICD-10-PCS; 2019-01-24)
PROC: B548ZZA Ultrasonography of Superior Vena Cava, Guidance (ICD-10-PCS; 2019-01-24)
PROC: 3E0436Z Introduction of Nutritional Substance into Central Vein, Percutaneous Approach (ICD-10-PCS; 2019-01-24)
DX: A41.9 Sepsis, unspecified organism (principal); K55.022 Diffuse acute infarction of small intestine; K65.9 Peritonitis, unspecified; I81 Portal vein thrombosis; K91.2 Postsurgical malabsorption, not elsewhere classified; E87.2 Acidosis; N17.9 Acute kidney failure, unspecified; E87.1 Hypo-osmolality and hyponatremia; R65.20 Severe sepsis without septic shock; R06.89 Other abnormalities of breathing; R19.7 Diarrhea, unspecified; K76.0 Fatty (change of) liver, not elsewhere classified; E78.5 Hyperlipidemia, unspecified; K21.9 Gastro-esophageal reflux disease without esophagitis; Z91.041 Radiographic dye allergy status; K80.20 Calculus of gallbladder without cholecystitis without obstruction; D64.9 Anemia, unspecified; D47.3 Essential (hemorrhagic) thrombocythemia; R59.0 Localized enlarged lymph nodes; E87.5 Hyperkalemia; K74.60 Unspecified cirrhosis of liver; R16.1 Splenomegaly, not elsewhere classified; D50.9 Iron deficiency anemia, unspecified; E87.6 Hypokalemia; Z86.010 Personal history of colon polyps; Z53.1 Procedure and treatment not carried out because of patient's decision for reasons of belief and group pressure
CPT/HCPCS: 36415; 36569; 36600; 71045; 74022; 74176; 74470; 76705; 78227; 80048; 80053; 80061; 81001; 82103; 82150; 82390; 82550; 82553; 82607; 82728; 82746; 82805; 82948; 83540; 83690; 83735; 83880; 84100; 84466; 84484; 85007; 85025; 85027; 85045; 85610; 85730; 86039; 86255; 86850; 86900; 87040; 87086; 88305; 88307; 88313; 93005; 93306; 94002; 94003; 96360; 96361; 96365; 96366; 96372; 97139; 99284; A9537; J0692; J0696; J1100; J1170; J1644; J1750; J1756; J1940; J2001; J2250; J2270; J2370; J2405; J2543; J3010; J3370; J3475; J3480; J7030; J7040; J7042; J7050; J7121; P9047; Q4081

== ENCOUNTER 2019-02-26 14:31 | Inpatient (IN) | payer OTHER ==
[~2019-02-26] VITALS: Ht 167.6 cm; Wt 78.6 kg
[~2019-02-26 14:31] MED LIST: COUMADIN1 MG PO; LOVENOX60 MG/0.6 SC
[2019-02-26] MEDS ORDERED: SODIUM CHLORIDE 0.9% 1000ML 1,000 ML IV STA (14:44)
[2019-02-26] MEDS ORDERED: PROPOFOL IV EMULSION 10 MG/ML 20 ML VIAL ONE (14:57)
[2019-02-26] MEDS ORDERED: ROCURONIUM BROMIDE 10 MG/ML 5ML VIAL ONE (14:57)
[2019-02-26] MEDS ORDERED: SEVOFLURANE INHAL SOLN 250 ML PEN BTL ONE (14:57)
[2019-02-26] MEDS ORDERED: LIDOCAINE HCL 2% LOCAL INJ 5 ML SDV VIAL INJ ONE (14:57)
[2019-02-26] MEDS ORDERED: ONDANSETRON HCL INJ 2MG/ML 2ML 2 MG/ML VIAL ONE (14:57)
[2019-02-26] MEDS ORDERED: EPHEDRINE SULFATE INJ 50 MG/10 ML SYR ONE (14:57)
[2019-02-26] MEDS ORDERED: DEXAMETHASONE SOD PHOS INJ 4 MG/ML VIAL ONE (14:57)
[2019-02-26] MEDS ORDERED: MIDAZOLAM HCL 2 MG/2 ML VIAL ONE (15:00)
[2019-02-26] MEDS ORDERED: FENTANYL CITRATE/PF 100MCG/2 ML INJ ONE (15:00)
[2019-02-26 15:24] LABS: BASOPHILS % 0.3 % (0.0-1.0); EOSINOPHILS # (AUTO) 0.1 (0.0-0.4); EOSINOPHILS % 0.5 % (0.0-6.0); HEMATOCRIT 33.3 % (38.2-49.6); HEMOGLOBIN 9.4 g/dL (14.0-18.0); LYMPHOCYTES # (AUTO) 0.7 (1.0-3.2); LYMPHOCYTES % 5.5 % (18.0-39.1); MEAN CORPUSCULAR HGB CONC 28.2 g/dL (31-35); MEAN CORPUSCULAR VOLUME 70.9 fL (81-99); MONOCYTES # (AUTO) 0.9 (0.2-0.8); MONOCYTES % 6.4 % (4.4-11.3); NEUTROPHILS # (AUTO) 11.5 (2.1-6.9); NEUTROPHILS % 86.7 % (38.7-80.0); PLATELET COUNT 377 x10e3/uL (140-360); RED CELL DISTRIBUTION WIDTH 26.5 % (11.7-14.4)
[2019-02-26] MEDS ORDERED: CEFEPIME 1GM/NS 0.9% 50 ML 50 ML IV ONE (15:24)
[2019-02-26] MEDS ORDERED: DIATRIZOATE MEGL/DIATRIZOA SOD 30 ML BTL PO ONE (15:25)
[2019-02-26 15:29] LABS: INR 1.57; PROTHROMBIN TIME 19.4 seconds (11.9-14.5)
[2019-02-26 15:30] LABS: PARTIAL THROMBOPLASTIN TIME 58.1 seconds (23.8-35.5)
--- NOTE | 2019-02-26 15:34 | NUR ---
2ND SET OF BLOOD CULTURES DRAWN PRIOR TO STARTING ANTIBIOTICS
[2019-02-26 15:37] LABS: BILIRUBIN,URINE MODERATE (NEGATIVE); CLARITY,URINE CLEAR (CLEAR); COLOR,URINE ORANGE (YELLOW); KETONES,URINE NEGATIVE (NEGATIVE); LEUKOCYTE ESTERASE ,URINE NEGATIVE (NEGATIVE); NITRITE,URINE NEGATIVE (NEGATIVE); PROTEIN,URINE DIPSTICK 2+ (NEGATIVE); URINE UROBILINOGEN 1 mg/dL (0.2 - 1)
[2019-02-26 15:38] LABS: ALANINE AMINOTRANSFERASE 13 IU/L (0-55); ALBUMIN 1.7 g/dL (3.5-5.0); ALBUMIN/GLOBULIN RATIO 0.3 (0.8-2.0); ALKALINE PHOSPHATASE 164 IU/L (40-150); ANION GAP 13.7 mmol/L (8-16); BLOOD UREA NITROGEN 12 mg/dL (7-26); BUN/CREATININE RATIO 16 (6-25); CALCIUM 7.9 mg/dL (8.4-10.2); CARBON DIOXIDE 23 mmol/L (22-29); CHLORIDE 100 mmol/L (98-107); CREATININE, SERUM 0.77 mg/dL (0.72-1.25); EST GLOMERULAR FILTRATION RATE > 60 ML/MIN (60-); GLUCOSE 104 mg/dL (74-118); LIPASE 14 U/L (8-78); MAGNESIUM 1.8 MG/DL (1.3-2.1); POTASSIUM 3.7 mmol/L (3.5-5.1); SODIUM 133 mmol/L (136-145)
[2019-02-26 15:41] LABS: CREATINE KINASE < 7 IU/L (30-200)
[2019-02-26] MEDS: METRONIDAZOLE 500MG/NS 100ML 100 ML IV SCH ×2 (15:42→22:58)
[2019-02-26 15:53] LABS: RBC,URINE 0-5 /HPF (0-5)
[2019-02-26 15:55] LABS: AMORPHOUS SEDIMENT,URINE FEW (FEW); BACTERIA,URINE FEW /HPF; MUCUS,URINE MANY (RARE)
[2019-02-26] MEDS ORDERED: VANCOMYCIN 1GM/NS 250 ML 250 ML IV ONE (16:00)
[2019-02-26] MEDS ORDERED: CEFEPIME 2 GM/NS 0.9% 100 ML 100 ML IV SCH (16:00)
--- NOTE | 2019-02-26 16:32 | NUR ---
dr jessica pond at pt bedside
[2019-02-26] MEDS: SODIUM CHLORIDE 0.9% 1000ML 1,000 ML IV SCH ×2 (17:07→22:44)
[2019-02-26 17:15] LABS: EOSINOPHILS % (MANUAL) 1 % (0-7); LYMPHOCYTES % (MANUAL) 3 % (19-48); MONOCYTES % (MANUAL) 6 % (3.4-9.0); NEUTROPHILS % (MANUAL) 90 % (40-74)
[2019-02-26 17:16] LABS: PLATELET ESTIMATE ADEQUATE; PLATELET MORPHOLOGY COMMENT NORMAL; RBC MORPHOLOGY COMMENT ABNORMAL
--- NOTE | 2019-02-26 17:21 | Diagnostic Imaging Report ---
EXAM: CT of the abdomen and pelvis WITHOUT contrast HISTORY: Abdominal pain, recent surgery, copious purulent discharge, history of small bowel obstruction, rule out perforation, rule out an anastomotic leak, date of surgery was reportedly a rounded January, reported bowel resection for ischemic bowel COMPARISON: CT of the abdomen and pelvis January 20, 2019. TECHNIQUE: The abdomen and pelvis were scanned utilizing a multidetector helical scanner. Coronal and sagittal reformats are available. PROTOCOL: Routine IV CONTRAST: None, which limits sensitivity and specificity of evaluation of the soft tissues and vascular structures. ORAL CONTRAST: None, which limits sensitivity and specificity of evaluation of the bowel. RADIATION DOSE: Total DLP: 353.74 mGy*cm Estimated effective dose: (DLP x 0.015 x size factor) Dose modulation, iterative reconstruction, and/or weight based adjustment of the mA/kV was utilized to reduce the radiation dose to as low as reasonably achievable. COMPLICATIONS: None FINDINGS: LOWER THORAX: Bilateral lower lobe atelectasis. HEPATOBILIARY: Stable nodular contour of the liver. Limited evaluation of the parenchyma. No biliary dilation. The gallbladder remains contracted. SPLEEN: Stable massive splenomegaly. PANCREAS: No focal masses or ductal dilatation. ADRENALS: The adrenal glands appear prominent, left greater than right, but no discrete nodule is identified. KIDNEYS/URETERS: No hydronephrosis, stones, or solid mass lesion identified. PELVIC ORGANS/BLADDER: There are no bladder is predominantly decompressed, which limits evaluation. PERITONEUM / RETROPERITONEUM: Interval increase in the low density ascites. Numerous small foci of free air, most notably the nondependent portion of the upper abdomen. GI TRACT: Radiopaque contrast within the stomach, small bowel, and throughout the colon. Large distal colonic fecal burden. 3 opaque suture material within the right lower abdomen, questionable adjacent extravasation of contrast (series 2 image 63, coronal image 44, sagittal image 61). LYMPH NODES: Numerous nonspecific retroperitoneal and mesenteric lymph nodes. VESSELS: Stable abdominal portosystemic varices. BONES and JOINTS: No aggressive osseous lesion or acute fracture. SOFT TISSUES: Ventral midline abdominal incision with central mixed air and fluid densities, patient representative image is series 2 image 55). IMPRESSION: 1. Status post bowel surgery, findings worrisome for an anastomotic leak. 2. Stable sequela of cirrhosis and portal hypertension. Discussed with Dr. Arizmendi via phone on February 26, 2019 at 1712. Signed by: Dr. Arash Cristina D.O., M.M.M. on 02/26/2019 5:18 PM
[2019-02-26 17:22] LABS: ANISOCYTOSIS MODERATE; ELLIPTOCYTE, RBC SLIGHT
[2019-02-26 17:24] LABS: HYPOCHROMASIA MODERATE
[2019-02-26 17:25] LABS: POIKILOCYTOSIS MODERATE
--- NOTE | 2019-02-26 17:31 | Diagnostic Imaging Report ---
A single frontal view of the chest. HISTORY: Abdominal pain COMPARISON: Chest radiographs January 28, 2019 and January 25, 2019 DISCUSSION: Portable technique, limits sensitivity of the exam. Overlying monitoring leads. Tubes/Lines: None Lungs and pleura: Low lung volumes result in bibasilar vascular crowding, accentuation of the pulmonary interstitial markings, central pulmonary vasculature, and the cardiac silhouette. Allowing for these limitations, the findings are as follows: No evidence of a consolidative pneumonia or pulmonary alveolar edema. No definite pleural effusion or pneumothorax is identified. Heart and mediastinum: The cardiomediastinal silhouette appear(s) unremarkable. Bones and soft tissues: Appear unremarkable, given this limited exam. IMPRESSION: No acute radiographic abnormality. Signed by: Dr. Arash Cristina D.O., M.M.M. on 02/26/2019 5:28 PM
--- NOTE | 2019-02-26 17:43 | Consultation ---
DATE OF CONSULTATION: 02/26/2019 Surgical Consultation HISTORY OF PRESENT ILLNESS: The patient is a 58-year-old Jehovah Witness, who in January of 2019 underwent exploratory laparotomy for mesenteric venous thrombosis secondary to thrombocytosis. At the time of laparotomy, he was found to have a significant amount of gut and he had major small-bowel resection with primary anastomosis. The patient was eventually discharged home after he survived that previous operation and hospitalization. Bowel movements were according to his daughter becoming more regular and less liquid with gradually improvement until today when he was getting out of bed with the help of his when they noticed that he has significant amount of drainage coming from the abdominal wound. The patient denies any abdominal pain, nausea or vomiting. He did have a fever according to the history from his . He as previously stated was moving his bowels well and was tolerating oral intake well. His only complaint is abdominal fullness. The patient in the emergency room is examined, his temperature is 99.3, pulse is 99, respiratory rate is 18, blood pressure 117/73 with oxygen saturation of 100%. PHYSICAL EXAMINATION: GENERAL: Reveals a somewhat cachectic male, who appears chronically ill. ABDOMEN: He denies any abdominal pain. He just feels fullness in the abdomen area. Examination of the abdomen reveals a distended abdomen with drainage of murky, milky fluid. It is whitish in color. There is no bile staining. There is no fecaloid smell during my examination. There are no peritoneal signs. His most remarkable finding is copious drainage from the midportion of the wound of this previously described fluid. There is some erythema of the abdominal incision. LABORATORY DATA: The admission white count is 13.1, platelets are 377, hematocrit 33. Admission electrolytes are basically normal. The coagulation revealed a PT of 19.4 with an INR of 1.57 and a PTT of 58.1. IMAGING DATA: The patient has a CT scan ordered, which is pending. ASSESSMENT: 1. A 58-year-old Jehovah Witness, who is currently taking Coumadin, the dose of which is unknown to him as well as Lovenox, the dose of which is also unknown to them, though by looking at the vials that the family showed me, it appears that he is taking 100 mg of Lovenox twice a day, who now presents with sudden onset of abdominal discharge of murky purulent-looking fluid. 2. Jehovah Witness, who refuses any blood products. 3. The patient is on Coumadin and Lovenox, though his INR is 1.5 at this point. PLAN: The patient has been given triple antibiotic coverage. In the emergency room, he received cefepime, he received metronidazole and vancomycin. Once we obtain the CAT scan report, they will discuss the results with the family and other physicians and then make appropriate plans as to what is the next step to be taken. Thank you very much for the courtesy of this consult. MD CASSIDY Cyr/CYNTHIA /[id number]
--- NOTE | 2019-02-26 18:08 | NUR ---
pt consented for exploratory laparotomy; pt states while they do not accept blood transfusions they do accept certain blood products listed on poa
--- NOTE | 2019-02-26 18:40 | NUR ---
WALKING ROUNDS WITH KENNY ANRDES
--- NOTE | 2019-02-26 18:54 | NUR ---
PREOP TEAM HERE AT BEDSIDE WITH PATIENT
--- NOTE | 2019-02-26 18:58 | NUR ---
PREOP TEAM LEFT ER WITH PATIENT TO THE SURGICAL UNIT
[2019-02-26 22:00] VITALS: BP_SYST 120; BP_SYST 89; BP_DIAS 61; BP_DIAS 84
--- NOTE | 2019-02-26 22:00 | NUR ---
Dr. Loretta Lloyd at bedside upon arrival, said could call him with any issues
[2019-02-26] MEDS ORDERED: ACETAMINOPHEN 1000 MG/100 ML IV PRN (22:15)
[2019-02-26] MEDS ORDERED: LACTATED RINGER'S 1,000 ML ONE (22:18)
[2019-02-26 22:30] VITALS: BP 114/76
[2019-02-26] MEDS: SODIUM CHLORIDE 0.9% 250ML IRRIG IR SCH (22:44)
[2019-02-26] MEDS: PANTOPRAZOLE 40 MG 10ML VIAL IV SCH (22:45)
[2019-02-26] MEDS: FLUCONAZOLE 100 MG/NS 50 ML 50 ML IV SCH (22:45)
[2019-02-26] MEDS ORDERED: FLUCONAZOLE 200 MG/100 ML 100 ML IV ONE (22:47)
[2019-02-26 23:00] VITALS: BP 114/78
--- NOTE | 2019-02-26 23:00 | NUR ---
Dr. Ogden notified of pt's arrival to ICU, updated on pt status and vent settings. Ordered to draw ABG and notify if RT had concerns. Also given order for Precedex if pt not tolerating diprivan gtt.
[2019-02-26] MEDS ORDERED: DEXMEDETOMIDINE HCL 200 MCG in SODIUM CHLORIDE 0.9% 50ML 48 ML IV PRN (23:15)
[2019-02-26] MEDS ORDERED: PROPOFOL IV EMULSION 10MG/ML 100 ML IV PRN (23:15)
[2019-02-26 23:30] VITALS: BP 114/87
[2019-02-26 23:46] LABS: ABG HCO3 19 mmol/L (23-28); ABG PCO2 31 mmHg (41-51); ABG PO2 164 mmHg (80-105)
[2019-02-27] VITALS (28 sets, daily range): BP systolic 89–120; BP diastolic 62–84
[2019-02-27] MEDS: HYDROMORPHONE 1MG/1ML INJ IV PRN ×3 (00:19→23:17)
[2019-02-27] MEDS: SODIUM CHLORIDE 0.9% 1000ML 1,000 ML IV SCH ×4 (00:23→17:35)
--- NOTE | 2019-02-27 01:37 | Diagnostic Imaging Report ---
EXAMINATION: CHEST SINGLE (PORTABLE) INDICATION: Enteric tube and central line placement COMPARISON: Abdominal CT 02/26/2019 FINDINGS: AP view TUBES and LINES: ET tube tip terminates in the mid intrathoracic trachea. Left IJ central venous catheter, tip in the right atrium. Enteric tube tip courses into abdomen, tip in the left upper abdomen.. LUNGS: Low lung volumes with bibasilar atelectasis. Lungs are clear. There is no evidence of pneumonia or pulmonary edema. PLEURA: No pleural effusion or pneumothorax. HEART AND MEDIASTINUM: The cardiomediastinal silhouette is unremarkable. BONES AND SOFT TISSUES: No acute osseous lesion. Soft tissues are unremarkable. UPPER ABDOMEN: No free air under the diaphragm. IMPRESSION: 1. ET tube tip terminates in the mid intrathoracic trachea. 2. Left IJ central venous catheter, tip in the right atrium. 3. Enteric tube tip courses into abdomen, tip in the left upper abdomen. 4. Low lung volumes with bibasilar atelectasis. Signed by: Shade Yang DO on 02/27/2019 1:34 AM
[2019-02-27] MEDS: SODIUM CHLORIDE 0.9% 250ML IRRIG IR SCH ×6 (02:15→21:31)
[2019-02-27 03:38] LABS: BASOPHILS % 0.2 % (0.0-1.0); EOSINOPHILS % 0.3 % (0.0-6.0); HEMATOCRIT 29.4 % (38.2-49.6); HEMOGLOBIN 8.1 g/dL (14.0-18.0); LYMPHOCYTES # (AUTO) 0.5 (1.0-3.2); LYMPHOCYTES % 3.2 % (18.0-39.1); MEAN CORPUSCULAR HEMOGLOBIN 20.1 pg (28-32); MEAN CORPUSCULAR HGB CONC 27.6 g/dL (31-35); MEAN CORPUSCULAR VOLUME 73.1 fL (81-99); MONOCYTES # (AUTO) 0.4 (0.2-0.8); NEUTROPHILS # (AUTO) 13.1 (2.1-6.9); NEUTROPHILS % 92.5 % (38.7-80.0); PLATELET COUNT 393 x10e3/uL (140-360); RED BLOOD COUNT 4.02 x10e6/uL (4.3-5.7)
[2019-02-27 03:50] LABS: ALANINE AMINOTRANSFERASE 12 IU/L (0-55); ALBUMIN 1.4 g/dL (3.5-5.0); ALBUMIN/GLOBULIN RATIO 0.3 (0.8-2.0); ALKALINE PHOSPHATASE 127 IU/L (40-150); BLOOD UREA NITROGEN 11 mg/dL (7-26); BUN/CREATININE RATIO 16 (6-25); CALCIUM 7.1 mg/dL (8.4-10.2); CARBON DIOXIDE 19 mmol/L (22-29); CHLORIDE 104 mmol/L (98-107); EST GLOMERULAR FILTRATION RATE > 60 ML/MIN (60-); GLUCOSE 148 mg/dL (74-118); SODIUM 132 mmol/L (136-145)
[2019-02-27 04:12] LABS: INR 1.7; PROTHROMBIN TIME 20.6 seconds (11.9-14.5)
[2019-02-27 04:13] LABS: PARTIAL THROMBOPLASTIN TIME 53.9 seconds (23.8-35.5)
[2019-02-27] MEDS: METRONIDAZOLE 500MG/NS 100ML 100 ML IV SCH ×4 (04:49→23:06)
[2019-02-27] MEDS: MEROPENEM 1GM 100 ML IV SCH ×3 (06:02→21:23)
[2019-02-27 06:14] LABS: HYPOCHROMASIA SLIGHT; LYMPHOCYTES % (MANUAL) 5 % (19-48); MONOCYTES % (MANUAL) 4 % (3.4-9.0); NEUTROPHILS % (MANUAL) 91 % (40-74)
[2019-02-27 06:15] LABS: PLATELET ESTIMATE MODERATELY INCREASED; RBC MORPHOLOGY COMMENT ABNORMAL
--- NOTE | 2019-02-27 08:42 | Diagnostic Imaging Report ---
EXAMINATION: CHEST SINGLE (PORTABLE) INDICATION: Postoperative COMPARISON: Multiple prior chest radiograph, most recently 02/26/2019 FINDINGS: LINES/TUBES:Endotracheal tube terminates approximately 4 cm above the liudmila. NG tube projects below the diaphragm with side port in the stomach and distal tip not visualized. Left central venous catheter terminates in the proximal right atrium. EKG leads overlie the chest. LUNGS:The lung volumes are very low. Mild bibasilar subsegmental atelectasis. No focal consolidation or pulmonary edema. PLEURA:No pleural effusion or pneumothorax. MEDIASTINUM:The cardiomediastinal silhouette appears unchanged in size and shape. BONES/SOFT TISSUES:No acute osseous injury. ABDOMEN:No free air under the diaphragm. IMPRESSION: Lines and tubes as above. Very low lung volumes. Bibasilar subsegmental atelectasis. No focal pneumonia or pulmonary edema. Signed by: Hailey Remy MD on 02/27/2019 8:39 AM
[2019-02-27] MEDS ORDERED: DEXMEDETOMIDINE 200MCG/NS 50ML 50 ML IV PRN (17:45)
[2019-02-27] MEDS: CENTRAL TPN FORMULA 1 BAG IV SCH (19:24)
[2019-02-27] MEDS: PANTOPRAZOLE 40 MG 10ML VIAL IV SCH (21:32)
[2019-02-27] MEDS: FLUCONAZOLE 100 MG/NS 50 ML 50 ML IV SCH (22:28)
--- NOTE | 2019-02-27 22:32 | NUR ---
Pulmonary [id number]
[2019-02-28] VITALS (25 sets, daily range): BP systolic 89–118; BP diastolic 60–85
[2019-02-28] MEDS: SODIUM CHLORIDE 0.9% 250ML IRRIG IR SCH ×6 (02:39→22:01)
[2019-02-28] MEDS: HYDROMORPHONE 1MG/1ML INJ IV PRN ×3 (03:39→20:12)
[2019-02-28] MEDS: METRONIDAZOLE 500MG/NS 100ML 100 ML IV SCH ×3 (04:56→16:36)
[2019-02-28 05:05] LABS: BASOPHILS % 0.2 % (0.0-1.0); EOSINOPHILS % 0.3 % (0.0-6.0); HEMATOCRIT 25.7 % (38.2-49.6); LYMPHOCYTES # (AUTO) 0.7 (1.0-3.2); LYMPHOCYTES % 5.9 % (18.0-39.1); MEAN CORPUSCULAR HEMOGLOBIN 20.1 pg (28-32); MEAN CORPUSCULAR HGB CONC 27.2 g/dL (31-35); MEAN CORPUSCULAR VOLUME 73.9 fL (81-99); MONOCYTES # (AUTO) 0.6 (0.2-0.8); MONOCYTES % 5.4 % (4.4-11.3); NEUTROPHILS # (AUTO) 9.5 (2.1-6.9); NEUTROPHILS % 86.9 % (38.7-80.0); PLATELET COUNT 301 x10e3/uL (140-360); RED BLOOD COUNT 3.48 x10e6/uL (4.3-5.7); RED CELL DISTRIBUTION WIDTH 26.1 % (11.7-14.4)
[2019-02-28 05:25] LABS: ALANINE AMINOTRANSFERASE 10 IU/L (0-55); ALBUMIN 1.2 g/dL (3.5-5.0); ALBUMIN/GLOBULIN RATIO 0.3 (0.8-2.0); ALKALINE PHOSPHATASE 109 IU/L (40-150); ANION GAP 9.7 mmol/L (8-16); BLOOD UREA NITROGEN 13 mg/dL (7-26); BUN/CREATININE RATIO 17 (6-25); CARBON DIOXIDE 21 mmol/L (22-29); CHLORIDE 107 mmol/L (98-107); CREATININE, SERUM 0.77 mg/dL (0.72-1.25); EST GLOMERULAR FILTRATION RATE > 60 ML/MIN (60-); GLUCOSE 140 mg/dL (74-118); POTASSIUM 3.7 mmol/L (3.5-5.1); SODIUM 134 mmol/L (136-145)
[2019-02-28] MEDS: MEROPENEM 1GM 100 ML IV SCH ×3 (06:00→22:02)
--- NOTE | 2019-02-28 06:47 | Diagnostic Imaging Report ---
Examination: Single AP view of the chest. COMPARISON: Portable chest 02/27/2019 INDICATION: Post abdominal surgery, intubated IMPRESSION: 1. Lines and Tubes: Support lines and tubes are unchanged. 2. Hypoinflated lungs. Persistent left retrocardiac density and obscuration of the left hemidiaphragm, likely representing left pleural effusion and associated left basilar atelectatic changes. Mild right basilar atelectatic changes are noted. 3. Cardiomediastinal silhouette is normal. Central vascular crowding due to low lung volumes. 4. No acute bony abnormalities. Signed by: Dr. Pasha Bull M.D. on 02/28/2019 6:43 AM
--- NOTE | 2019-02-28 07:03 | Consultation ---
DATE OF CONSULTATION: 02/27/2019 Pulmonary Critical Care Medicine Consult REASON FOR REFERRAL: Respiratory insufficiency. HISTORY OF PRESENT ILLNESS: Mr. Alvarez is a pleasant 58-year-old gentleman with respiratory insufficiency. The patient well known to me from previous hospitalization. In January 2019, the patient was hospitalized with abdominal pain and abdominal pelvic CT demonstrated right lower quadrant inflammation, nodular liver consistent with cirrhosis and a 22 cm spleen. The patient went for exploration, which demonstrated small bowel obstruction, thought due to mesenteric vein thrombosis and one-half of the small bowel was gangrenous at that time and required resection. Eventually, the patient was postop and after some level of multiorgan dysfunction, he recovered. The patient subsequently discharged on February 07, 2019. On February 26, 2019, the patient was being managed outpatient anticoagulation, but today was noted to have significant amount of drainage from the abdominal wound. Drainage had murky purulent-looking fluid and with smell. CT abdomen and pelvis was performed acutely and had suggestion of possible anastomotic leak. There was increased ascites noted. The patient underwent emergent exploration, which demonstrated appearance of nonspecific peritonitis. The patient underwent drainage and washout and thereafter was allowed to go to the ICU for further recovery. Estimated blood loss was about 50 mL. No clinical complications. I am consulted. PAST MEDICAL HISTORY: GERD, cirrhosis, hyperlipidemia, mesenteric vein thrombosis, iron deficiency anemia, secondary thrombocythemia, partial colonic resection due to gangrenous bowel in January 2019. MEDICATIONS: Medication list reviewed per the chart record. ALLERGIES: IODINE. 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 No alcohol, no smoking, no drugs. The patient lives with and has supportive family. FAMILY HISTORY: Noncontributory. REVIEW OF SYSTEMS: Cannot get as he is intubated. OBJECTIVE: VITAL SIGNS: Afebrile right now, vital signs noted and reviewed per the chart record. Intermittently borderline low blood pressure limiting the medicine. GENERAL: Awakens, but in no acute distress, mostly on sedation. HEENT: Normocephalic and atraumatic. NECK: Supple. Throat midline. LUNGS: Bilateral air entry, decreased effort, few rhonchi. CARDIOVASCULAR: S1 and S2. No murmurs, rubs, or gallops. ABDOMEN: Postoperative, mostly soft. EXTREMITIES: No clubbing. No cyanosis. There is only trace foot edema, mostly without edema. INTEGUMENT: No rash. No purpura. LABORATORY DATA: BUN 11, creatinine 0.7, bicarbonate 19, potassium 4.0. White blood count 14, hematocrit 29, platelets 393. INR was 1.7. IMPRESSION AND PLAN: 1. Spontaneous versus secondary bacterial peritonitis. At risk for hospital-acquired organisms. 2. Postoperative respiratory insufficiency. 3. Exploratory laparotomy, drainage of intra-abdominal ascites/peritonitis. 4. History of cirrhosis. 5. Anemia, multifactorial. Adventism. 6. Hyperlipidemia. 7. Gastroesophageal reflux disease. 8. Recent mesenteric vein thrombosis with ischemic bowel, status post small bowel resection in January 2019. 9. Severe protein-calorie malnutrition. 10. Coagulopathy, mostly liver disease. Maintain intubated state. Medicines for comfort. Broad-spectrum antibiotics to include coverage for healthcare-associated organisms. No early extubation, continue ventilator support. Early TPN to be considered. Continue IV fluid perfusion. Follow the organs to ensure appropriate resolution. Thank you very much, Dr. Moura and Dr. Lloyd for this consult. Please call for any questions. MD JESUS Bustillos/MODL /[id number]
--- NOTE | 2019-02-28 07:05 | NUR ---
ASSESSMENT: Spiritual concern Pt's daughter hopeful concerning father's illness. Pt sleeping soundly and daughter at bedside. Intervention: Provided hospitality and empathic listening. Facilitated illness review. Provided information on how to contact rehab services aide, if needed. Outcome: Pt's daughter expressed appreciation for visit. Will follow as able. ИРИНА LUGO Chemical Engineering Technician Spiritual Care Department O: [phone] Pager: [phone] ([phone] number calling from)
[2019-02-28 08:00] LABS: LYMPHOCYTES % (MANUAL) 6 % (19-48); MONOCYTES % (MANUAL) 6 % (3.4-9.0); NEUTROPHILS % (MANUAL) 88 % (40-74)
[2019-02-28 08:04] LABS: PLATELET ESTIMATE ADEQUATE
[2019-02-28 08:05] LABS: MICROCYTOSIS SLIGHT; RBC MORPHOLOGY COMMENT NORMAL
[2019-02-28] MEDS: SODIUM CHLORIDE 0.9% 1000ML 1,000 ML IV SCH ×2 (10:23→20:40)
--- NOTE | 2019-02-28 12:49 | NUR ---
PT BEING EXTUBATED UNABLE TO COMPLETE AT THIS TIME
[2019-02-28] MEDS: ENOXAPARIN SOD INJ 60 MG/0.6 ML SYR SC SCH (16:36)
[2019-02-28] MEDS: CENTRAL TPN FORMULA 1 BAG IV SCH (19:49)
[2019-02-28] MEDS: PANTOPRAZOLE 40 MG 10ML VIAL IV SCH (22:02)
[2019-02-28] MEDS: FLUCONAZOLE 100 MG/NS 50 ML 50 ML IV SCH (22:02)
--- NOTE | 2019-02-28 23:28 | NUR ---
Pulmonary Critical Care Medicine DATE OF ENCOUNTER: 02/28/2019 SUBJECTIVE: PATIENT INTUBATED IN MORNING. ppatient is on Precedex sedation with when necessary Dilaudid. Patient later extubat in midday.nno respiratory distress thereafter. Urine output was 35 cc per hour, GI output was 42 cc per hour. TPN 60 per hour, IV fluid normal saline 90 per hour REVIEW OF SYSTEMS: Cannot get as he is intubated. OBJECTIVE: VITAL SIGNS: vital signs noted, reviewed GENERAL: Awake, no acute distress HEENT: Normocephalic and atraumatic. NECK: Supple. Throat midline. LUNGS: Bilateral air entry, decreased effort, few rhonchi. CARDIOVASCULAR: S1 and S2. No murmurs, rubs, or gallops. ABDOMEN: Postoperative, mostly soft. EXTREMITIES: No clubbing. No cyanosis. trace foot edema INTEGUMENT: No rash. No purpura. LABORATORY DATA: wbc 11, hct 26, pl t301 k 3.7, cr .77 IMPRESSION AND PLAN: 1. Suggested spontaneous bacterial peritonitis. At risk for hospital-acquired organisms. 2. Postoperative respiratory insufficiency, now extubated. 3. Exploratory laparotomy, drainage of intra-abdominal ascites/peritonitis. No perforations/breakdown 4. History of cirrhosis. 5. Anemia, multifactorial. Muslim. 6. Hyperlipidemia. 7. Gastroesophageal reflux disease. 8. 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 9. Severe protein-calorie malnutrition. 10. Coagulopathy, mostly liver disease. intubated/extubated discontinue ventilator Adjust IV fluids, albumin IV when necessary Broad-spectrum antibiotics to include coverage for healthcare-associated organisms Early TPN continue. Continue IV fluid perfusion. follow kidney output closely, urine is dark still Thank you very much, Dr. Moura and Dr. Lloyd for this consult. Please call for any questions. >30 min direct care today, multiple evaluation
[2019-03-01] VITALS (25 sets, daily range): BP systolic 105–127; BP diastolic 65–87
[2019-03-01] MEDS: METRONIDAZOLE 500MG/NS 100ML 100 ML IV SCH ×5 (00:11→23:05)
[2019-03-01] MEDS: SODIUM CHLORIDE 0.9% 250ML IRRIG IR SCH ×6 (02:10→21:21)
[2019-03-01] MEDS: HYDROMORPHONE 1MG/1ML INJ IV PRN ×5 (02:10→21:22)
[2019-03-01 05:11] LABS: BASOPHILS % 0.4 % (0.0-1.0); EOSINOPHILS # (AUTO) 0.1 (0.0-0.4); EOSINOPHILS % 0.6 % (0.0-6.0); HEMATOCRIT 26.7 % (38.2-49.6); HEMOGLOBIN 7.2 g/dL (14.0-18.0); LYMPHOCYTES # (AUTO) 0.8 (1.0-3.2); LYMPHOCYTES % 7.8 % (18.0-39.1); MEAN CORPUSCULAR VOLUME 74.2 fL (81-99); MONOCYTES # (AUTO) 0.6 (0.2-0.8); MONOCYTES % 6.3 % (4.4-11.3); NEUTROPHILS # (AUTO) 8.2 (2.1-6.9); NEUTROPHILS % 83.1 % (38.7-80.0); PLATELET COUNT 215 x10e3/uL (140-360); RED CELL DISTRIBUTION WIDTH 26.3 % (11.7-14.4)
[2019-03-01 05:29] LABS: ALANINE AMINOTRANSFERASE 7 IU/L (0-55); ALBUMIN 1.3 g/dL (3.5-5.0); ALBUMIN/GLOBULIN RATIO 0.3 (0.8-2.0); ALKALINE PHOSPHATASE 102 IU/L (40-150); ANION GAP 9.6 mmol/L (8-16); BLOOD UREA NITROGEN 14 mg/dL (7-26); BUN/CREATININE RATIO 20 (6-25); CARBON DIOXIDE 21 mmol/L (22-29); CHLORIDE 109 mmol/L (98-107); CREATININE, SERUM 0.69 mg/dL (0.72-1.25); EST GLOMERULAR FILTRATION RATE > 60 ML/MIN (60-); GLUCOSE 131 mg/dL (74-118); POTASSIUM 3.6 mmol/L (3.5-5.1); SODIUM 136 mmol/L (136-145)
[2019-03-01 05:38] LABS: CALCIUM 6.8 mg/dL (8.4-10.2)
[2019-03-01] MEDS: MEROPENEM 1GM 100 ML IV SCH ×3 (06:18→21:24)
--- NOTE | 2019-03-01 06:53 | Diagnostic Imaging Report ---
Examination: Single AP view of the chest. COMPARISON: Portable chest 02/28/2019 INDICATION: Post extubation, postop abdominal surgery IMPRESSION: 1. Lines and Tubes: Interval removal of previously visualized endotracheal tube. Enteric tube is unchanged. 2. Lungs are mildly hypoinflated. Patchy airspace opacity in the right lower lung, likely representing atelectasis. There is obscuration of the left hemidiaphragm and increased left retrocardiac density, suggesting left effusion and associated atelectasis. 3. Cardiomediastinal silhouette is normal. Central vascular crowding. 4. No acute bony abnormalities. Signed by: Dr. Pasha Bull M.D. on 03/01/2019 6:49 AM
[2019-03-01 08:26] LABS: LYMPHOCYTES % (MANUAL) 6 % (19-48); MONOCYTES % (MANUAL) 7 % (3.4-9.0); NEUTROPHILS % (MANUAL) 87 % (40-74); PLATELET ESTIMATE ADEQUATE; PLATELET MORPHOLOGY COMMENT FEW LARGE; RBC MORPHOLOGY COMMENT NORMAL
[2019-03-01] MEDS ORDERED: DEXTROSE 10% 1,000 ML IV SCH (11:00)
[2019-03-01] MEDS: CENTRAL TPN FORMULA 1 BAG IV SCH ×2 (13:15→21:24)
--- NOTE | 2019-03-01 15:49 | NUR ---
Nutrition Intervention Note RD Recommendation(s) for Physician: - Recommend TPN of 1800 ml, Dextrose 200 g/day, AA 10% 100 g/day, Lipids 25 g/day, Na Acetate 60 mEq/L, KCl 20 mEq/L, Kphos 12 mmol/L, Ca 5 mEq/L, Mg Sulfate 12 mEq/L. Add MVI, trace, and thiamine to bag. - Please check BMP with Mg and Phos daily, replace low lytes as needed. - Recommend Ensure Clear TID when diet advanced to Clear Liquids. - When feasible, ADAT to goal of GI Soft with Ensure Enlive TID. - Pt meets criteria for mild protein calorie malnutrition Plan of Care: RD following, monitoring for tolerance and adequacy, TPN rec's, diet and ONS rec's Nutrition reason for involvement: Nutrition Risk Trigger- new TPN RD Assessment 03/01: 58 YOM admitted for abdominal pain and wound infection, now s/p for ex-lap as well as intra-abdominal drainage of ascites and peritonitis. Pt with recent hospitalization in January 2019 for abdominal surgery including ex-lap, cholecystectomy, appendectomy, and small bowel resection. Pt seen today as pt was started on TPN, no consult received. Pt extubated yesterday, pt groggy at time of visit and no family present. No wt loss noted per prior admit, pt with decreased po intake over the past month 2/2 hospitalization and surgery. NGT remains in place, minimal bilious output noted. TPN infusing at 100 ml/hr at time of visit, MD currently managing. TPN rec's provided. Will monitor and continue to follow. Principal Problems/Diagnoses: abdominal pain, thrombocytosis, wound infection PMH: cholecystectomy, appendectomy, small bowel resection, GERD, HLD, fatty liver GI: No BM Skin: surgical incision Labs: 03/01: Na 136, K 3.6, C 109, CO2 21, BUN 14, Cr 0.69, Gluc 131, Ca 6.8, no Phos or Mg available Meds: abx, protonix, zofran Ht: 66 in Wt: 159.44 lb BMI: 25.7 IBW: 142 lb Malnutrition Evaluation (03/01/19) The patient meets criteria for MILD protein-calorie malnutrition. Energy intake: <75% of estimated energy requirements for >7 days Weight loss: No wt loss Fat loss: Mild- dark circles around eyes Muscle loss: Mild- clavicle visible Supporting Evidence: Fluid accumulation: Mild Functional Status: unable to evaluate Nutrition Prescription (Diet Order): NPO, on TPN Estimated Nutritional Needs: 4702-9541 calories/day (25-35 kcal/kg UBW) BW of 154 lb used 2/2 edema 70-126 g protein/day (1-1.8 g pro/kg UBW) Diet Adequacy: Not meeting calorie needs, Not meeting protein needs Diet Education Needs Assessment: Diet education not indicated, patient on temporary/transition diet. Nutrition Care Level: High Nutrition Diagnosis: Inadequate energy and protein intake related to abdominal surgery and infection as evidenced by NPO and requiring nutrition support. Goal: Patient will meet 75-100% of estimated needs by follow up Progress: N/A Interventions: Composition, Rate, Route, Recommended Modifications, Collaboration with other providers Monitoring/Evaluation: Total energy intake, Total protein intake, Formula/Solution Signed: Jeanne Aldridge RD, JOE, [facility]
[2019-03-01] MEDS: ENOXAPARIN SOD INJ 60 MG/0.6 ML SYR SC SCH (17:16)
[2019-03-01] MEDS ORDERED: CHLORASEPTIC SPRAY 177 ML BTL MM PRN (17:30)
--- NOTE | 2019-03-01 21:38 | NUR ---
Pulmonary Critical Care Medicine DATE OF ENCOUNTER: 03/01/2019 SUBJECTIVE: UOP 300/7 hrs NGt with 300 cc/12 hours +flatus no BM 3 L/min oxygen, 96% saturation on tpn REVIEW OF SYSTEMS: Cannot get as he is intubated. OBJECTIVE: VITAL SIGNS: vital signs noted, reviewed GENERAL: Awake, no acute distress, weak HEENT: Normocephalic and atraumatic. NECK: Supple. Throat midline. LUNGS: Bilateral air entry, decreased effort, few rhonchi. CARDIOVASCULAR: S1 and S2. No murmurs, rubs, or gallops. ABDOMEN: Postoperative, mostly soft. EXTREMITIES: No clubbing. No cyanosis. trace foot edema INTEGUMENT: No rash. No purpura. LABORATORY DATA: 3.6 k, co2 21, cr .7. wbc 10, hct 27, 7.2 hb. IMPRESSION AND PLAN: 1. Spontaneous bacterial peritonitis. At risk for hospital-acquired organisms. 2. Postoperative respiratory insufficiency, now extubated. 3. Exploratory laparotomy, drainage of intra-abdominal ascites/peritonitis. No perforations/breakdown 4. History of cirrhosis. 5. Anemia, multifactorial. Christianity. 6. Hyperlipidemia. 7. Gastroesophageal reflux disease. 8. 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 9. Severe protein-calorie malnutrition. 10. Coagulopathy, mostly liver disease. IVF/albumin IV when necessary Broad-spectrum antibiotics to include coverage for healthcare-associated organisms Follow cultures to decide on further vancomycin TPN continue. Continue IV fluid perfusion. Follow kidney output closely Thank you very much, Dr. Moura and Dr. Lloyd for this consult. Please call for any questions.
[2019-03-01] MEDS: FLUCONAZOLE 100 MG/NS 50 ML 50 ML IV SCH (22:04)
[2019-03-01] MEDS: PANTOPRAZOLE 40 MG 10ML VIAL IV SCH (22:06)
[2019-03-02] VITALS (19 sets, daily range): BP systolic 114–133; BP diastolic 73–87
[2019-03-02] MEDS: HYDROMORPHONE 1MG/1ML INJ IV PRN ×4 (01:22→21:30)
[2019-03-02] MEDS: SODIUM CHLORIDE 0.9% 250ML IRRIG IR SCH ×5 (02:19→17:16)
[2019-03-02 05:01] LABS: BASOPHILS % 0.4 % (0.0-1.0); EOSINOPHILS # (AUTO) 0.2 (0.0-0.4); EOSINOPHILS % 1.4 % (0.0-6.0); HEMATOCRIT 27.3 % (38.2-49.6); HEMOGLOBIN 7.3 g/dL (14.0-18.0); LYMPHOCYTES # (AUTO) 1.1 (1.0-3.2); LYMPHOCYTES % 9.5 % (18.0-39.1); MEAN CORPUSCULAR HGB CONC 26.7 g/dL (31-35); MEAN CORPUSCULAR VOLUME 74.8 fL (81-99); MONOCYTES # (AUTO) 0.8 (0.2-0.8); MONOCYTES % 6.8 % (4.4-11.3); NEUTROPHILS # (AUTO) 8.9 (2.1-6.9); PLATELET COUNT 183 x10e3/uL (140-360); RED BLOOD COUNT 3.65 x10e6/uL (4.3-5.7); RED CELL DISTRIBUTION WIDTH 26.3 % (11.7-14.4)
[2019-03-02] MEDS: METRONIDAZOLE 500MG/NS 100ML 100 ML IV SCH ×4 (05:10→23:00)
[2019-03-02 05:22] LABS: ALANINE AMINOTRANSFERASE 9 IU/L (0-55); ALBUMIN 1.4 g/dL (3.5-5.0); ALBUMIN/GLOBULIN RATIO 0.3 (0.8-2.0); ALKALINE PHOSPHATASE 119 IU/L (40-150); ANION GAP 9.8 mmol/L (8-16); BLOOD UREA NITROGEN 17 mg/dL (7-26); BUN/CREATININE RATIO 26 (6-25); CALCIUM 7.2 mg/dL (8.4-10.2); CARBON DIOXIDE 21 mmol/L (22-29); CHLORIDE 109 mmol/L (98-107); CREATININE, SERUM 0.66 mg/dL (0.72-1.25); EST GLOMERULAR FILTRATION RATE > 60 ML/MIN (60-); GLUCOSE 118 mg/dL (74-118); POTASSIUM 3.8 mmol/L (3.5-5.1); SODIUM 136 mmol/L (136-145)
[2019-03-02] MEDS: MEROPENEM 1GM 100 ML IV SCH ×3 (06:04→22:00)
[2019-03-02 08:14] LABS: EOSINOPHILS % (MANUAL) 1 % (0-7); HYPOCHROMASIA SLIGHT; LYMPHOCYTES % (MANUAL) 10 % (19-48); MONOCYTES % (MANUAL) 7 % (3.4-9.0); NEUTROPHILS % (MANUAL) 82 % (40-74); PLATELET ESTIMATE SLIGHTLY DECREASED
[2019-03-02 08:15] LABS: RBC MORPHOLOGY COMMENT ABNORMAL
[2019-03-02] MEDS ORDERED: IRON DEXTRAN INJ 50 MG in SODIUM CHLORIDE 0.9% 100 ML IV ONE ×2 (10:00→13:00)
[2019-03-02] MEDS ORDERED: DEXAMETHASONE PHOS 10MG INJ 20 MG in SODIUM CHLORIDE 0.9% 50ML 50 ML IV ONE ×2 (10:00→11:00)
[2019-03-02] MEDS ORDERED: DIPHENHYDRAMINE HCL INJ 25 MG in SODIUM CHLORIDE 0.9% 50ML 50 ML IV ONE ×2 (10:00→12:00)
[2019-03-02] MEDS ORDERED: FAMOTIDINE INJ 20 MG in SODIUM CHLORIDE 0.9% 50ML 50 ML IV ONE ×2 (10:00→12:00)
[2019-03-02] MEDS ORDERED: IRON DEXTRAN INJ 500 MG in SODIUM CHLORIDE 0.9% 500ML 500 ML IV PRN (10:00)
[2019-03-02] MEDS ORDERED: SODIUM CHLORIDE 0.9% 100 ML ONE (13:12)
[2019-03-02] MEDS ORDERED: IRON DEXTRAN INJ 500 MG in SODIUM CHLORIDE 0.9% 500ML 500 ML IV ONE (14:00)
--- NOTE | 2019-03-02 16:48 | NUR ---
Received patient via bed. Accompanied by . AAOX4 to time, person, place, situation. Respirations even and unlabored. O2 2L NC. Telemetry #2 SR 79. Dressing to abdomen clean, dry, and intact. Oriented patient to room. Instructed to use call light for assistance. Voiced understanding.
--- NOTE | 2019-03-02 17:22 | NUR ---
PT TRANSFERRED TO ROOM 111 RN TO RESUME CARE
--- NOTE | 2019-03-02 17:34 | NUR ---
Pulmonary Critical Care Medicine DATE OF ENCOUNTER: 03/02/2019 SUBJECTIVE: UOP 450 / 12 hrs NGT with 400 cc/12 hours 2 L/min oxygen, 98% saturation on tpn walked 4 steps x 2 REVIEW OF SYSTEMS: no headaches, no rash. OBJECTIVE: VITAL SIGNS: vital signs noted, reviewed GENERAL: Awake, no acute distress, weak HEENT: Normocephalic and atraumatic. NECK: Supple. Throat midline. LUNGS: Bilateral air entry, decreased effort, few rhonchi. CARDIOVASCULAR: S1 and S2. No murmurs, rubs, or gallops. ABDOMEN: Postoperative, mostly soft. EXTREMITIES: No clubbing. No cyanosis. trace foot edema INTEGUMENT: No rash. No purpura. LABORATORY DATA: k 3.8, hco3 21, cr .66. wbc 11, hct 27, plt 183 IMPRESSION AND PLAN: 1. Spontaneous bacterial peritonitis. At risk for hospital-acquired organisms. 2. Postoperative respiratory insufficiency, now extubated. 3. Exploratory laparotomy, drainage of intra-abdominal ascites/peritonitis. No perforations/breakdown 4. History of cirrhosis. 5. Anemia, multifactorial. Adventist. 6. Hyperlipidemia. 7. Gastroesophageal reflux disease. 8. 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 9. Severe protein-calorie malnutrition. 10. Coagulopathy, mostly liver disease. Broad-spectrum antibiotics to include coverage for healthcare-associated organisms Follow cultures to decide on further vancomycin TPN continue. Continue IV fluid perfusion. Follow kidney output closely Enoxaparin Thank you very much, Dr. Moura and Dr. Lloyd for this consult. Please call for any questions.
[2019-03-02] MEDS: ENOXAPARIN SOD INJ 60 MG/0.6 ML SYR SC SCH (17:54)
--- NOTE | 2019-03-02 19:16 | NUR ---
Report given to oncoming nurse of patient's status. Resting in bed. and daughter at bedside. No s/s of acute distress noted. Side rails upx3, call light within reach.
[2019-03-02] MEDS: CENTRAL TPN FORMULA 1 BAG IV SCH (20:00)
[2019-03-02] MEDS: BISACODYL 10 MG SUPP PR SCH (21:00)
[2019-03-02] MEDS: FLUCONAZOLE 100 MG/NS 50 ML 50 ML IV SCH (22:15)
[2019-03-02] MEDS: PANTOPRAZOLE 40 MG 10ML VIAL IV SCH (22:15)
[2019-03-03 04:00] VITALS: BP 115/74
[2019-03-03] MEDS: HYDROMORPHONE 1MG/1ML INJ IV PRN ×4 (04:00→21:40)
--- NOTE | 2019-03-03 04:00 | NUR ---
left subclavian drsg saturated. drsg changed at time. pt tolerated well. no ss of distress noted. call [place] within reach.
[2019-03-03] MEDS: METRONIDAZOLE 500MG/NS 100ML 100 ML IV SCH ×4 (05:00→23:05)
--- NOTE | 2019-03-03 05:30 | NUR ---
sm amount of left subclavian drsg saturated. dr madonna patel paged at time regarding central line. awaiting return call. will notify oncoming nurse.
--- NOTE | 2019-03-03 05:52 | Diagnostic Imaging Report ---
Examination: Single AP view of the chest. COMPARISON: AP chest 03/01/2019 INDICATION: Verify Central line, leaking from central line placement IMPRESSION: 1. Lines and Tubes: No interval change in left-sided subclavian approach central line with distal tip projecting at the cavoatrial junction. Previously visualized enteric tube has been removed. 2. No interval change in right basilar atelectatic changes, left effusion and likely associated atelectasis. 3. Cardiomediastinal silhouette is normal. Pulmonary vasculature is normal. 4. No acute bony abnormalities. Signed by: Dr. Pasha Bull M.D. on 03/03/2019 5:49 AM
[2019-03-03] MEDS: MEROPENEM 1GM 100 ML IV SCH ×3 (06:00→22:02)
--- NOTE | 2019-03-03 07:10 | NUR ---
see down time charting.
--- NOTE | 2019-03-03 07:27 | NUR ---
[facility] patient in report this am. Patient is asleep in bed at this time. Bedside wounds performed and noted subclavian line to be leaking. Call placed to Dr. Jaiem for orders
--- NOTE | 2019-03-03 07:38 | NUR ---
SPoke with Dr. Lloyd and new order to try and figure out which port maybe leaking and may have to replace the line. Will change the dressing and monitor ports
[2019-03-03] MEDS: BISACODYL 10 MG SUPP PR SCH (08:00)
[2019-03-03 08:03] VITALS: BP 116/72
[2019-03-03] MEDS: ONDANSETRON HCL INJ 2MG/ML 2ML 2 MG/ML VIAL IV PRN ×2 (08:27→13:47)
[2019-03-03 10:03] VITALS: BP 116/72
[2019-03-03] MEDS: FLUCONAZOLE 100 MG/NS 50 ML 50 ML IV SCH (11:13)
--- NOTE | 2019-03-03 11:13 | NUR ---
Left subclavian line continues to leak. Dressing has been changed multiple times under sterile technique and different ports have been tried. Last port to be tried at this time. Will continue to monitor
[2019-03-03 12:10] VITALS: BP 122/73
[2019-03-03] MEDS ORDERED: HYDROCODONE/APAP 5MG-325MG TAB PO PRN (13:00)
--- NOTE | 2019-03-03 13:00 | NUR ---
Dr. Lloyd at bedside and surgical dressing changed. Central line continues to leak. New order for PICC placement . Call placed to Radiology and awaiting PICC team
[2019-03-03 16:11] VITALS: BP 118/75
[2019-03-03] MEDS ORDERED: WARFARIN SOD 5 MG TAB PO SCH (17:00)
[2019-03-03] MEDS: ENOXAPARIN SOD INJ 60 MG/0.6 ML SYR SC SCH (17:15)
[2019-03-03] MEDS ORDERED: SODIUM CHLORIDE 0.9% 250ML 250 ML ONE (17:25)
--- NOTE | 2019-03-03 18:06 | NUR ---
Nutrition Follow-up Note RD Recommendation(s) for Physician: - Recommend taper down PN as pt advance to GI soft diet. - Recommend Ensure Enlive TID with meals to increase protein-calorie intake - Please check BMP with Mg and Phos daily, replace low lytes as needed - Pt meets criteria for mild protein calorie malnutrition Plan of Care: RD following, monitoring for tolerance and adequacy, TPN rec's, diet and ONS rec's Nutrition reason for involvement: Follow up RD Assessment 03/03: Pt was discussed during AM rounds. S/p exploratory laparotomy, drainage of intra-abdominal ascites/peritonitis on 02/26. POD 5. Pt was getting TPN at 100mL/hr, providing total volume of 2400mL, 1704kcal, and 120g protein. No daily phos and mg drawn. Na and K WNL. Glucose stable. Pt had central line leakage. IR has been consulted. Visited pt in the room. Per family, pt tolerated clear liquid. Diet has advanced to full liquid. Family would like Ensure for pt. Will continue to monitor and follow. 03/01: 58 YOM admitted for abdominal pain and wound infection, now s/p for ex-lap as well as intra-abdominal drainage of ascites and peritonitis. Pt with recent hospitalization in January 2019 for abdominal surgery including ex-lap, cholecystectomy, appendectomy, and small bowel resection. Pt seen today as pt was started on TPN, no consult received. Pt extubated yesterday, pt groggy at time of visit and no family present. No wt loss noted per prior admit, pt with decreased po intake over the past month 2/2 hospitalization and surgery. NGT remains in place, minimal bilious output noted. TPN infusing at 100 ml/hr at time of visit, MD currently managing. TPN rec's provided. Will monitor and continue to follow. Principal Problems/Diagnoses: abdominal pain, thrombocytosis, wound infection PMH: cholecystectomy, appendectomy, small bowel resection, GERD, HLD, fatty liver GI: Abdomen flat, tender, LBM 03/03 Skin: surgical incision on abdomen Labs: 03/02: Na 136, K 3.8, Chloride 109 H, CO2 21 L, BUN 17 , Creatinine 0.66 L, Glucose 118, Ca 7.2 L 03/01: Na 136, K 3.6, C 109, CO2 21, BUN 14, Cr 0.69, Gluc 131, Ca 6.8, no Phos or Mg available Meds: lovenox, dilaudid, zofran Ht: 66 in Wt: 159.44 lb BMI: 25.7 IBW: 142 lb Malnutrition Evaluation (03/01/19) The patient meets criteria for MILD protein-calorie malnutrition. Energy intake: <75% of estimated energy requirements for >7 days Weight loss: No wt loss Fat loss: Mild- dark circles around eyes Muscle loss: Mild- clavicle visible Supporting Evidence: Fluid accumulation: Mild Functional Status: unable to evaluate Nutrition Prescription (Diet Order): full liquid, on TPN Estimated Nutritional Needs: 3134-1329 calories/day (25-35 kcal/kg UBW) BW of 154 lb used 2/2 edema 70-126 g protein/day (1-1.8 g pro/kg UBW) Diet Adequacy: Meeting calorie needs, meeting protein needs Diet Education Needs Assessment: Diet education not indicated, patient on temporary/transition diet. Nutrition Care Level: High (TPN) Nutrition Diagnosis: Inadequate energy and protein intake related to abdominal surgery and infection as evidenced by NPO and requiring nutrition support. Goal: Patient will meet 75-100% of estimated needs by follow up Progress: Goal met Interventions: Composition, Rate, Route, Recommended Modifications, Collaboration with other providers Monitoring/Evaluation: Total energy intake, Total protein intake, Formula/Solution Signed: Belén Colon MS, RD, LD
--- NOTE | 2019-03-03 18:13 | NUR ---
Cunningham discontinued at this time. Patient tolerated well. Patient due to void in 6-8 hours. Informed patient as well.
--- NOTE | 2019-03-03 19:06 | NUR ---
PICC team in room at this time.
--- NOTE | 2019-03-03 19:50 | NUR ---
PT VOIDED AT THIS TIME
--- NOTE | 2019-03-03 19:53 | Diagnostic Imaging Report ---
Examination: Single AP view of the chest. COMPARISON: 03/03/2019 INDICATION: Chest line placement DISCUSSION: Lines/tubes: Right PICC line with tip overlying the SVC. Left central venous catheter with tip overlying the SVC. Lungs: The lungs are well inflated and clear. No pneumonia or pulmonary edema. Pleura: No pleural effusion or pneumothorax. Heart and mediastinum: The heart and the mediastinum are unremarkable. Bones and soft tissues: No acute bony abnormalities. IMPRESSION: 1. Right PICC line with tip overlying the SVC. Signed by: Dr. Deo Flynn M.D. on 03/03/2019 7:50 PM
[2019-03-03 20:00] VITALS: BP 136/80
[2019-03-03] MEDS: CENTRAL TPN FORMULA 1 BAG IV SCH (20:45)
[2019-03-03] MEDS: PANTOPRAZOLE 40 MG 10ML VIAL IV SCH (22:11)
--- NOTE | 2019-03-03 23:26 | NUR ---
Pulmonary Critical Care Medicine DATE OF ENCOUNTER: 03/03/2019 SUBJECTIVE: ate 1/2 clears diet BM+ patient walked to nurses station moderate assist to EOB position standby assist when walking tpn 100/hr REVIEW OF SYSTEMS: no headaches, no rash. OBJECTIVE: VITAL SIGNS: vital signs noted, reviewed GENERAL: Awake, no acute distress HEENT: Normocephalic and atraumatic. NECK: Supple. Throat midline. LUNGS: Bilateral air entry, decreased effort, few rhonchi. CARDIOVASCULAR: S1 and S2. No murmurs, rubs, or gallops. ABDOMEN: Postoperative, mostly soft. EXTREMITIES: No clubbing. No cyanosis. trace foot edema INTEGUMENT: No rash. No purpura. LABORATORY DATA: 3.8 k, hco 21, .66 cr. 11 wbc. hct 27. plt 183 IMPRESSION AND PLAN: 1. Spontaneous bacterial peritonitis. At risk for hospital-acquired organisms. 2. Postoperative respiratory insufficiency, now extubated. 3. Exploratory laparotomy, drainage of intra-abdominal ascites/peritonitis. No perforations/breakdown noted 4. History of cirrhosis. 5. Anemia, multifactorial. Lutheran. 6. Hyperlipidemia. 7. Gastroesophageal reflux disease. 8. 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 9. Severe protein-calorie malnutrition. 10. Coagulopathy, mostly liver disease. Broad-spectrum antibiotics to include coverage for healthcare-associated organisms TPN continue, wean off soon Continue IV fluid perfusion. Enoxaparin US left arm venous for edema d/c collier when others ok Thank you very much, Dr. Moura and Dr. Lloyd for this consult. Please call for any questions.
[2019-03-04] VITALS (8 sets, daily range): BP systolic 116–150; BP diastolic 71–90
[2019-03-04] MEDS: HYDROMORPHONE 1MG/1ML INJ IV PRN ×2 (03:15→21:42)
[2019-03-04] MEDS: METRONIDAZOLE 500MG/NS 100ML 100 ML IV SCH ×4 (05:08→23:52)
[2019-03-04 05:21] LABS: BASOPHILS % 0.2 % (0.0-1.0); EOSINOPHILS # (AUTO) 0.1 (0.0-0.4); EOSINOPHILS % 0.9 % (0.0-6.0); HEMATOCRIT 27.3 % (38.2-49.6); HEMOGLOBIN 7.5 g/dL (14.0-18.0); LYMPHOCYTES % 7.4 % (18.0-39.1); MEAN CORPUSCULAR HEMOGLOBIN 20.4 pg (28-32); MEAN CORPUSCULAR HGB CONC 27.5 g/dL (31-35); MEAN CORPUSCULAR VOLUME 74.2 fL (81-99); MONOCYTES # (AUTO) 0.8 (0.2-0.8); MONOCYTES % 6.2 % (4.4-11.3); NEUTROPHILS # (AUTO) 10.5 (2.1-6.9); NEUTROPHILS % 82.3 % (38.7-80.0); PLATELET COUNT 207 x10e3/uL (140-360); RED BLOOD COUNT 3.68 x10e6/uL (4.3-5.7); RED CELL DISTRIBUTION WIDTH 27.4 % (11.7-14.4)
[2019-03-04 05:36] LABS: ALANINE AMINOTRANSFERASE 11 IU/L (0-55); ALBUMIN 1.3 g/dL (3.5-5.0); ALBUMIN/GLOBULIN RATIO 0.3 (0.8-2.0); ALKALINE PHOSPHATASE 140 IU/L (40-150); ANION GAP 6.9 mmol/L (8-16); BLOOD UREA NITROGEN 26 mg/dL (7-26); BUN/CREATININE RATIO 40 (6-25); CALCIUM 7.5 mg/dL (8.4-10.2); CARBON DIOXIDE 21 mmol/L (22-29); CHLORIDE 110 mmol/L (98-107); CREATININE, SERUM 0.65 mg/dL (0.72-1.25); EST GLOMERULAR FILTRATION RATE > 60 ML/MIN (60-); GLUCOSE 142 mg/dL (74-118); POTASSIUM 3.9 mmol/L (3.5-5.1); SODIUM 134 mmol/L (136-145)
[2019-03-04] MEDS: MEROPENEM 1GM 100 ML IV SCH ×3 (06:08→21:00)
[2019-03-04 08:14] LABS: BAND NEUTROPHILS % (MANUAL) 1 %; ELLIPTOCYTE, RBC SLIGHT; EOSINOPHILS % (MANUAL) 2 % (0-7); LYMPHOCYTES % (MANUAL) 7 % (19-48); METAMYELOCYTES % (MANUAL) 1 % (0-0); MONOCYTES % (MANUAL) 3 % (3.4-9.0); NEUTROPHILS % (MANUAL) 86 % (40-74); OVALOCYTES FEW; PLATELET ESTIMATE ADEQUATE; PLATELET MORPHOLOGY COMMENT FEW LARGE; RBC MORPHOLOGY COMMENT ABNORMAL
[2019-03-04 08:15] LABS: POIKILOCYTOSIS SLIGHT
--- NOTE | 2019-03-04 11:24 | NUR ---
Called Dr. Meredith Ogdne, made aware of preliminary results venous duplex, as positive for DVT to to jugular and subclavian. Informed Dr. Ogden, patient is currently Warfarin 5mg @ 1700 daily and Lovenox 60mg SQ daily @[address] Ogden he will come to see patient and also communicate with hematology Dr. Carolyne Carmona in reference to results positive results for DVT.
--- NOTE | 2019-03-04 11:32 | NUR ---
Notified Dr. Carrillo of patient's preliminary results, positive for DVT, I also informed him Dr. Ogden was aware, and he would communicate with hematology Dr. Carolyne Carmona. No new orders received.
[2019-03-04 12:32] LABS: INR 1.58; PROTHROMBIN TIME 19.5 seconds (11.9-14.5)
--- NOTE | 2019-03-04 14:38 | NUR ---
Pulmonary Critical Care Medicine DATE OF ENCOUNTER: 03/04/2019 SUBJECTIVE: DVT IN LEFT IJ + LEFT subclavian vein ate some walking further, still pain in abdomen slows him REVIEW OF SYSTEMS: no headaches, no rash. OBJECTIVE: VITAL SIGNS: vital signs noted, reviewed GENERAL: Awake, no acute distress HEENT: Normocephalic and atraumatic. NECK: Supple. Throat midline. LUNGS: Bilateral air entry, decreased effort, few rhonchi. CARDIOVASCULAR: S1 and S2. No murmurs, rubs, or gallops. ABDOMEN: Postoperative, mostly soft. EXTREMITIES: No clubbing. No cyanosis. trace foot edema INTEGUMENT: No rash. No purpura. LABORATORY DATA: k 3.9, 21 hco3, bun 26, cr 0.66 wbc 13, hct 27, plt 207. inr 1.58 IMPRESSION AND PLAN: 1. Spontaneous bacterial peritonitis. At risk for hospital-acquired organisms. 2. Postoperative respiratory insufficiency, now extubated. 3. Exploratory laparotomy, drainage of intra-abdominal ascites/peritonitis. No perforations/breakdown noted 4. History of cirrhosis. 5. Anemia, multifactorial. [place]. 6. Hyperlipidemia. 7. Gastroesophageal reflux disease. 8. 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 9. Severe protein-calorie malnutrition. 10. Coagulopathy, mostly liver disease. 11. new DVT Left IJ, Left subclavian Broad-spectrum antibiotics to include coverage for healthcare-associated organisms TPN continue, wean off soon. Full liquid diet PO additionally. Enoxaparin increase, continue warfarin per hematology CVC from left side resited to ?PICC, removed Mobilize Thank you very much, Dr. Moura and Dr. Lloyd for this consult. Please call for any questions.
[2019-03-04] MEDS: ENOXAPARIN SOD INJ 60 MG/0.6 ML SYR SC SCH ×2 (15:08→21:00)
[2019-03-04] MEDS ORDERED: VANCOMYCIN 1GM/NS 250 ML 250 ML IV SCH (15:45)
[2019-03-04] MEDS ORDERED: GUAIFENESIN/DEXTROMETHORPHAN LIQD 5 ML UDC PO PRN (15:45)
--- NOTE | 2019-03-04 16:08 | NUR ---
pt was on hold per nurse due to doppler ordered to rule out a dvt/ will f/u later if time permits Addendum: 03/04/19 at 1609 by Rogelio Giron PTA Amended: Links added.
--- NOTE | 2019-03-04 16:46 | Diagnostic Imaging Report ---
Examination: Single AP view of the chest. COMPARISON: 03/03/2019 INDICATION: Right lower lobe atelectasis DISCUSSION: Unchanged position of right upper extremity PICC. Left subclavian central venous catheter has been removed. Lungs are well-inflated. No consolidations. Stable trace left pleural effusion. Minimal atelectatic changes of the right lung base, unchanged. IMPRESSION: Stable position of right upper extremity PICC. Interval removal of left subclavian central venous catheter. Stable minimal atelectatic changes of the right lung base. Trace left pleural effusion. Signed by: Dr. Anthony Reilly M.D. on 03/04/2019 4:43 PM
[2019-03-04] MEDS: HYDROCODONE/APAP 5MG-325MG TAB PO PRN (16:51)
--- NOTE | 2019-03-04 19:00 | NUR ---
HANDOFF REPORT TO ONCOMING NURSE, PATIENT IN BED, NURSE MADE AWARE PATIENT TO USE INCENTIVE SPIROMETRY, AMBULATE AND ENCOURAGE TO EAT. PATIENT VERBALIZING NEEDS. PER DR. LOS GERMAN PATIENT WILL BE ON TPN UNTIL ALBUMEN LEVEL WITHIN NORMAL LIMITS.
[2019-03-04] MEDS: WARFARIN SOD 3 MG TAB PO SCH (19:05)
[2019-03-04] MEDS: CENTRAL TPN FORMULA 1 BAG IV SCH (20:45)
[2019-03-04] MEDS: PANTOPRAZOLE 40 MG 10ML VIAL IV SCH (22:12)
[2019-03-04] MEDS: FLUCONAZOLE 100 MG/NS 50 ML 50 ML IV SCH (22:12)
[2019-03-05] VITALS (7 sets, daily range): BP systolic 124–152; BP diastolic 73–97
[2019-03-05] MEDS: ENOXAPARIN SOD INJ 60 MG/0.6 ML SYR SC SCH ×2 (04:10→16:21)
[2019-03-05] MEDS: VANCOMYCIN 1GM/NS 250 ML 250 ML IV SCH ×2 (04:10→16:21)
[2019-03-05 04:38] LABS: BASOPHILS % 0.3 % (0.0-1.0); EOSINOPHILS # (AUTO) 0.2 (0.0-0.4); EOSINOPHILS % 1.9 % (0.0-6.0); HEMATOCRIT 28.4 % (38.2-49.6); HEMOGLOBIN 7.9 g/dL (14.0-18.0); LYMPHOCYTES # (AUTO) 1.1 (1.0-3.2); LYMPHOCYTES % 9.4 % (18.0-39.1); MEAN CORPUSCULAR HEMOGLOBIN 20.6 pg (28-32); MEAN CORPUSCULAR HGB CONC 27.8 g/dL (31-35); MONOCYTES # (AUTO) 0.9 (0.2-0.8); MONOCYTES % 7.5 % (4.4-11.3); NEUTROPHILS # (AUTO) 9.3 (2.1-6.9); NEUTROPHILS % 76.6 % (38.7-80.0); PLATELET COUNT 215 x10e3/uL (140-360); RED BLOOD COUNT 3.84 x10e6/uL (4.3-5.7); RED CELL DISTRIBUTION WIDTH 27.9 % (11.7-14.4)
[2019-03-05 04:49] LABS: INR 1.58; PROTHROMBIN TIME 19.5 seconds (11.9-14.5)
[2019-03-05 04:59] LABS: ALANINE AMINOTRANSFERASE 12 IU/L (0-55); ALBUMIN 1.4 g/dL (3.5-5.0); ALBUMIN/GLOBULIN RATIO 0.4 (0.8-2.0); ALKALINE PHOSPHATASE 149 IU/L (40-150); ANION GAP 9.1 mmol/L (8-16); BLOOD UREA NITROGEN 21 mg/dL (7-26); BUN/CREATININE RATIO 33 (6-25); CALCIUM 7.5 mg/dL (8.4-10.2); CARBON DIOXIDE 21 mmol/L (22-29); CHLORIDE 106 mmol/L (98-107); CREATININE, SERUM 0.63 mg/dL (0.72-1.25); EST GLOMERULAR FILTRATION RATE > 60 ML/MIN (60-); GLUCOSE 121 mg/dL (74-118); POTASSIUM 4.1 mmol/L (3.5-5.1); SODIUM 132 mmol/L (136-145)
[2019-03-05] MEDS: MEROPENEM 1GM 100 ML IV SCH ×3 (05:50→21:00)
[2019-03-05] MEDS: METRONIDAZOLE 500MG/NS 100ML 100 ML IV SCH ×4 (06:25→23:30)
--- NOTE | 2019-03-05 06:47 | Diagnostic Imaging Report ---
Examination: Single AP view of the chest. COMPARISON: AP chest 03/04/2019 INDICATION: CHF IMPRESSION: 1. Lines and Tubes: Unchanged right upper extremity PICC line. 2. Lungs are well-inflated. No consolidation. Stable left pleural effusion and likely associated compressive atelectasis.. 3. Cardiomediastinal silhouette is normal. Pulmonary vasculature is normal. 4. No acute bony abnormalities. Signed by: Dr. Pasha Bull M.D. on 03/05/2019 6:44 AM
[2019-03-05] MEDS: HYDROMORPHONE 1MG/1ML INJ IV PRN ×2 (10:58→19:48)
[2019-03-05 11:50] LABS: BAND NEUTROPHILS % (MANUAL) 3 %; LYMPHOCYTES % (MANUAL) 10 % (19-48)
[2019-03-05 11:51] LABS: EOSINOPHILS % (MANUAL) 3 % (0-7); MONOCYTES % (MANUAL) 7 % (3.4-9.0); NEUTROPHILS % (MANUAL) 77 % (40-74)
[2019-03-05 11:52] LABS: LARGE PLATELETS FEW; PLATELET ESTIMATE ADEQUATE
[2019-03-05 11:53] LABS: PLATELET MORPHOLOGY COMMENT FEW LARGE; RBC MORPHOLOGY COMMENT ABNORMAL; SCHISTOCYTES FEW
[2019-03-05] MEDS ORDERED: SODIUM CHLORIDE 0.9% 250ML 250 ML ONE (16:10)
[2019-03-05] MEDS: WARFARIN SOD 3 MG TAB PO SCH (16:21)
[2019-03-05] MEDS ORDERED: CENTRAL TPN FORMULA 1 BAG IV SCH (20:00)
[2019-03-05] MEDS: FLUCONAZOLE 100 MG/NS 50 ML 50 ML IV SCH (22:15)
[2019-03-05] MEDS: PANTOPRAZOLE 40 MG 10ML VIAL IV SCH (22:35)
--- NOTE | 2019-03-05 22:42 | NUR ---
Pulmonary Critical Care Medicine DATE OF ENCOUNTER: 03/05/2019 SUBJECTIVE: tpn at 100/hr iv 2 L/min oxygen CXR small left >> right effusion, stable eating regular diet now REVIEW OF SYSTEMS: no headaches, no rash. OBJECTIVE: VITAL SIGNS: vital signs noted, reviewed GENERAL: Awake, no acute distress HEENT: Normocephalic and atraumatic. NECK: Supple. Throat midline. LUNGS: Bilateral air entry, decreased effort, few rhonchi. CARDIOVASCULAR: S1 and S2. No murmurs, rubs, or gallops. ABDOMEN: Postoperative, mostly soft. EXTREMITIES: No clubbing. No cyanosis. trace foot edema INTEGUMENT: No rash. No purpura. LABORATORY DATA: k 4.1, 21 hco3, cr 0.63. 12 wbc. 28 hct, plt 215. inr 1.58 IMPRESSION AND PLAN: 1. Spontaneous bacterial peritonitis. At risk for hospital-acquired organisms. 2. Postoperative respiratory insufficiency, now extubated. 3. Exploratory laparotomy, drainage of intra-abdominal ascites/peritonitis. No perforations/breakdown noted 4. History of cirrhosis. 5. Anemia, multifactorial. Episcopalian. 6. Hyperlipidemia. 7. Gastroesophageal reflux disease. 8. 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 9. Severe protein-calorie malnutrition. 10. Coagulopathy, mostly liver disease. 11. new DVT Left IJ, Left subclavian Broad-spectrum antibiotics to include coverage for healthcare-associated organisms TPN continue, wean off soon when eating adequately. regular diet PO now, change to bland gi Enoxaparin continue, continue warfarin per hematology Mobilize As he gets better, we can consider diuretic add-on in the next few days Thank you very much, Dr. Moura and Dr. Lloyd for this consult. Please call for any questions.
[2019-03-06] VITALS (7 sets, daily range): BP systolic 121–139; BP diastolic 64–89
[2019-03-06] MEDS: HYDROCODONE/APAP 5MG-325MG TAB PO PRN ×2 (01:45→15:58)
[2019-03-06] MEDS: ENOXAPARIN SOD INJ 60 MG/0.6 ML SYR SC SCH ×2 (04:30→18:32)
[2019-03-06] MEDS: MEROPENEM 1GM 100 ML IV SCH ×2 (04:30→13:50)
[2019-03-06 04:38] LABS: BASOPHILS % 0.4 % (0.0-1.0); EOSINOPHILS # (AUTO) 0.2 (0.0-0.4); EOSINOPHILS % 2.2 % (0.0-6.0); HEMOGLOBIN 7.8 g/dL (14.0-18.0); LYMPHOCYTES # (AUTO) 1.1 (1.0-3.2); LYMPHOCYTES % 9.4 % (18.0-39.1); MEAN CORPUSCULAR HEMOGLOBIN 20.7 pg (28-32); MEAN CORPUSCULAR HGB CONC 27.9 g/dL (31-35); MEAN CORPUSCULAR VOLUME 74.3 fL (81-99); MONOCYTES # (AUTO) 0.7 (0.2-0.8); MONOCYTES % 6.1 % (4.4-11.3); NEUTROPHILS # (AUTO) 8.9 (2.1-6.9); NEUTROPHILS % 79.3 % (38.7-80.0); PLATELET COUNT 206 x10e3/uL (140-360); RED BLOOD COUNT 3.77 x10e6/uL (4.3-5.7); RED CELL DISTRIBUTION WIDTH 28.2 % (11.7-14.4)
[2019-03-06 04:47] LABS: INR 1.69; PROTHROMBIN TIME 20.5 seconds (11.9-14.5)
[2019-03-06 04:55] LABS: ANION GAP 7.1 mmol/L (8-16); BLOOD UREA NITROGEN 19 mg/dL (7-26); BUN/CREATININE RATIO 32 (6-25); CALCIUM 7.3 mg/dL (8.4-10.2); CARBON DIOXIDE 22 mmol/L (22-29); CHLORIDE 104 mmol/L (98-107); EST GLOMERULAR FILTRATION RATE > 60 ML/MIN (60-); GLUCOSE 126 mg/dL (74-118); POTASSIUM 4.1 mmol/L (3.5-5.1); SODIUM 129 mmol/L (136-145)
[2019-03-06] MEDS: METRONIDAZOLE 500MG/NS 100ML 100 ML IV SCH ×3 (05:06→20:00)
--- NOTE | 2019-03-06 05:49 | NUR ---
VANCO TROUGH RESULT JUST CAME BACK. PAGED DR. Suzan JETER AT THIS TIME REGARDING RESULT. AWAITING CALL BACK.
--- NOTE | 2019-03-06 05:59 | NUR ---
SPOKE TO DR. COELHO COVERING FOR DR. Suzan JETER AT THIS TIME REGARDING VANCOMYCIN TROUGH. SAID OK TO CONTINUE VANCOMYCIN.
[2019-03-06] MEDS: VANCOMYCIN 1GM/NS 250 ML 250 ML IV SCH ×2 (06:06→18:31)
[2019-03-06 07:21] LABS: EOSINOPHILS % (MANUAL) 4 % (0-7); LYMPHOCYTES % (MANUAL) 6 % (19-48); MONOCYTES % (MANUAL) 9 % (3.4-9.0); NEUTROPHILS % (MANUAL) 81 % (40-74)
[2019-03-06 07:22] LABS: ANISOCYTOSIS SLIGHT; OVALOCYTES FEW; PAPPENHEIMER BODIES FEW; PLATELET ESTIMATE ADEQUATE; POIKILOCYTOSIS MODERATE; POLYCHROMASIA FEW; RBC MORPHOLOGY COMMENT ABNORMAL
[2019-03-06 07:23] LABS: ELLIPTOCYTE, RBC SLIGHT; MICROCYTOSIS SLIGHT; PLATELET MORPHOLOGY COMMENT FEW LARGE; TEAR DROP CELLS FEW
--- NOTE | 2019-03-06 12:17 | NUR ---
Total of 60cc collected from all 3 JUAN drains at this time. Serosanguineous noted in JUAN drains labeled 2 and 3. Brownish coloration with sediment observed in drain labeled 1. Pt stated feeling pain to ABD site 09/21, refused pain medication at this time, stated he wants to wait until he has eaten lunch. ABD binder in place and dressing CDI. Call light within reach and bed in lowest position.
--- NOTE | 2019-03-06 12:50 | NUR ---
Pulmonary Critical Care Medicine DATE OF ENCOUNTER: 03/06/2019 SUBJECTIVE: tpn at 100/hr --d30% + 10% AA ate >50% of breakfast weak, but not dizzy on getting up arm minimally better swelling? REVIEW OF SYSTEMS: no headaches, no rash. OBJECTIVE: VITAL SIGNS: vital signs noted, reviewed GENERAL: Awake, no acute distress HEENT: Normocephalic and atraumatic. NECK: Supple. Throat midline. LUNGS: Bilateral air entry, decreased effort, few rhonchi. CARDIOVASCULAR: S1 and S2. No murmurs, rubs, or gallops. ABDOMEN: Postoperative, mostly soft. EXTREMITIES: No clubbing. No cyanosis. 1+ edema INTEGUMENT: No rash. No purpura. LABORATORY DATA: k 4.1, cr 0.60, hco3 22. 11 wbc, hct 28, plt 206 inr 1.69 IMPRESSION AND PLAN: 1. Spontaneous bacterial peritonitis. At risk for hospital-acquired organisms. 2. Postoperative respiratory insufficiency, now extubated. 3. Exploratory laparotomy, drainage of intra-abdominal ascites/peritonitis. No perforations/breakdown noted 4. History of cirrhosis. 5. Anemia, multifactorial. Hindu. 6. Hyperlipidemia. 7. Gastroesophageal reflux disease. 8. 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 9. Severe protein-calorie malnutrition. 10. Coagulopathy, mostly liver disease. 11. DVT : Left IJ, Left subclavian Broad-spectrum antibiotics to include coverage for healthcare-associated organisms TPN continue, wean off soon when eating adequately. regular diet PO now, change to bland gi Enoxaparin continue, continue warfarin per hematology Mobilize As he gets better, we can consider diuretic add-on in the next few days. folllow sodium level in meanwhile Thank you very much, Dr. Moura and Dr. Lloyd for this consult. Please call for any questions.
--- NOTE | 2019-03-06 15:03 | Consultation ---
DATE OF CONSULTATION: 02/27/[address] Saturnino Moura. HISTORY OF PRESENT ILLNESS: Mr. 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 The patient was maintained on heparin and Coumadin. The patient also received INFeD and Procrit as he had refused blood transfusion because of his yarsani commitment. Subsequently, the patient did well, was discharged, however, comes to the ER with dehiscence of the wound and purulent discharge from the abdominal wound. FAMILY HISTORY: Noncontributory. FAMILY HISTORY: Noncontributory. ALLERGIES: REPORTED, IODINE. MEDICATIONS: At this time: 1. Metronidazole. 2. Meropenem. 3. Fluconazole. 4. Decadron. 5. Normal saline. 6. Ondansetron. 7. Protonix. 8. Hydromorphone. REVIEW OF SYSTEMS: HEENT: Normal. CARDIAC: Normal. RESPIRATORY: Normal. GI: Cirrhosis of the liver, portal hypertension, hypersplenism, and the patient also has had SMV thrombosis. : Normal. MUSCULOSKELETAL: Normal. SKIN: Normal. BREASTS: Normal. NEUROENDOCRINE: Normal. PHYSICAL EXAMINATION: GENERAL: A moderately built male, anemic, no palpable adenopathy. HEART: Within normal limits. LUNGS: Clear. ABDOMEN: Protuberant. There is dehiscence of wound with some purulent discharge. RECTAL: Deferred. CENTRAL NERVOUS SYSTEM: Essentially normal. LABORATORY DATA: Hemoglobin of 8.1, hematocrit 29.4, white count of 14,100, platelets 393,000. Indices are suggestive of iron deficiency still. INR 1.7. BUN 11, creatinine 0.7, sodium 132, potassium 4.0, chloride is 104, CO2 of 19. Bilirubin 0.7, SGOT 12, SGPT 21, alkaline phosphatase 127. IMPRESSION: 1. Superior mesenteric vein thrombosis. 2. Dehiscence of wound. 3. Infection of bone. 4. Iron deficiency anemia. 5. Hypoalbuminemia of 1.7. 6. Leukocytosis of 13.3. 7. Urinary tract infection as per the urinalysis. 8. Anastomotic bowel leak. 9. Cirrhosis of liver. 10. Portal hypertension. PLAN: Plan is to have INFeD and anticoagulation after surgery. 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 Thank you very much for allowing me to participate in the management of this patient. MD PATRICK Quezada/CYNTHIA /[id number] cc: MD Jeffrey Bustillos MD
--- NOTE | 2019-03-06 18:26 | NUR ---
Nutrition Follow-up Note RD Recommendation(s) for Physician: - TPN rec's: Increase NaCl to 80 mEq/L, add 25 g/day Lipids MWF, and add thiamine. Continue other components as ordered. - Recommend Ensure Enlive TID with meals to increase protein-calorie intake. - Please check BMP with Mg and Phos daily, replace low lytes as needed. - Check TG, Prealbumin, and CRP with am labs. - When pt eating >60% of meals taper and discontinue TPN. - Pt meets criteria for mild protein calorie malnutrition. Plan of Care: RD following, monitoring for tolerance and adequacy, TPN rec's, diet and ONS rec's Nutrition reason for involvement: Follow up RD Assessment 03/06: Pt seen for follow up. Pt discussed during am rounds, continues with poor po intake on GI Soft diet and remains on TPN at 100 ml/hr. TPN continues to provide 1704 kcal and 120 gm protein per day. Pt sleeping at time of visit, family at bedside report that pt continues with abdominal pain at incision site and denies GI distress. No questions or concerns at time of visit. POC and rec's discussed with MCKENNA Polo on unit. Will monitor and continue to follow. 03/03: Pt was discussed during AM rounds. S/p exploratory laparotomy, drainage of intra-abdominal ascites/peritonitis on 02/26. POD 5. Pt was getting TPN at 100mL/hr, providing total volume of 2400mL, 1704kcal, and 120g protein. No daily phos and mg drawn. Na and K WNL. Glucose stable. Pt had central line leakage. IR has been consulted. Visited pt in the room. Per family, pt tolerated clear liquid. Diet has advanced to full liquid. Family would like Ensure for pt. Will continue to monitor and follow. 03/01: 58 YOM admitted for abdominal pain and wound infection, now s/p for ex-lap as well as intra-abdominal drainage of ascites and peritonitis. Pt with recent hospitalization in January 2019 for abdominal surgery including ex-lap, cholecystectomy, appendectomy, and small bowel resection. Pt seen today as pt was started on TPN, no consult received. Pt extubated yesterday, pt groggy at time of visit and no family present. No wt loss noted per prior admit, pt with decreased po intake over the past month 2/2 hospitalization and surgery. NGT remains in place, minimal bilious output noted. TPN infusing at 100 ml/hr at time of visit, MD currently managing. TPN rec's provided. Will monitor and continue to follow. Principal Problems/Diagnoses: abdominal pain, thrombocytosis, wound infection PMH: cholecystectomy, appendectomy, small bowel resection, GERD, HLD, fatty liver GI: Abdomen flat, tender, LBM 03/03 Skin: surgical incision on abdomen Labs: 03/06: Na 129, K 4.1, Cl 104, CO2 22, Gluc 126, Ca 7.3, POC Gluc 125-140, no Phos, Mg, or TG available 03/02: Na 136, K 3.8, Chloride 109 H, CO2 21 L, BUN 17 , Creatinine 0.66 L, Glucose 118, Ca 7.2 L 03/01: Na 136, K 3.6, C 109, CO2 21, BUN 14, Cr 0.69, Gluc 131, Ca 6.8, no Phos or Mg available Meds: lovenox, dilaudid, zofran Ht: 66 in Wt: 159.44 lb BMI: 25.7 IBW: 142 lb Malnutrition Evaluation (03/01/19) The patient meets criteria for MILD protein-calorie malnutrition. Energy intake: <75% of estimated energy requirements for >7 days Weight loss: No wt loss Fat loss: Mild- dark circles around eyes Muscle loss: Mild- clavicle visible Supporting Evidence: Fluid accumulation: Mild Functional Status: unable to evaluate Nutrition Prescription (Diet Order): GI soft, on TPN TPN: TV 2400, Dextrose 30%, AA10%, NaCl 60 mEq/L, KCl 20 mEq/L, KPhos 12 mEq/L, Ca 9.2 mEq/L, Mg 12 mEq/L, trace, MVI. 1704 kcal and 120 gm protein Estimated Nutritional Needs: 6781-8594 calories/day (25-35 kcal/kg UBW) BW of 154 lb used 2/2 edema 70-126 g protein/day (1-1.8 g pro/kg UBW) Diet Adequacy: Meeting calorie needs, meeting protein needs Diet Education Needs Assessment: Diet education not indicated, patient on temporary/transition diet. Nutrition Care Level: High (TPN) Nutrition Diagnosis: Inadequate energy and protein intake related to abdominal surgery and infection as evidenced by NPO and requiring nutrition support. Goal: Patient will meet 75-100% of estimated needs by follow up Progress: Goal met Interventions: Composition, Rate, Route, Recommended Modifications, Collaboration with other providers Monitoring/Evaluation: Total energy intake, Total protein intake, Formula/Solution Signed: Jeanne Aldridge RD, LD, [facility]
[2019-03-06] MEDS: WARFARIN SOD 3 MG TAB PO SCH (18:32)
[2019-03-06] MEDS ORDERED: CENTRAL TPN FORMULA 1 BAG IV SCH (20:00)
--- NOTE | 2019-03-06 20:00 | NUR ---
INITIAL ASSESSMENT COMPLETE, VS STABLE, FAMILY AT BEDSIDE, PT HAS ABD BINDER IN PLACE, DRESSING INTACT, JUAN DRAIN X 3 DRAINING, TPN AND IV INFUSING, TELE ON PT, LEFT ARM WITH EDEMA, ARM UP ON PILLOW, + FOR DVT, O2 2L NC, UP TO BSC WITH ASSIST, URINAL AT BEDSIDE, TOLD TO CALL FOR NEEDS
[2019-03-06] MEDS: HYDROCORTISONE 2.5% PR CRM 1 OZ TUBE PR SCH (21:00)
[2019-03-06] MEDS: CEFTRIAXONE SOD 1 GM/NS 50 ML 50 ML IV SCH (21:30)
[2019-03-06] MEDS: FLUCONAZOLE 100 MG/NS 50 ML 50 ML IV SCH (22:15)
[2019-03-07] VITALS (7 sets, daily range): BP systolic 124–156; BP diastolic 76–82
[2019-03-07] MEDS: METRONIDAZOLE 500MG/NS 100ML 100 ML IV SCH ×4 (02:00→21:15)
[2019-03-07] MEDS: ENOXAPARIN SOD INJ 60 MG/0.6 ML SYR SC SCH (05:00)
[2019-03-07] MEDS: VANCOMYCIN 1GM/NS 250 ML 250 ML IV SCH ×2 (05:00→17:10)
[2019-03-07 06:22] LABS: INR 2.05; PROTHROMBIN TIME 23.8 seconds (11.9-14.5)
--- NOTE | 2019-03-07 07:19 | NUR ---
Rcvd patient in report this am. Patient is asleep in bed at this time. No s/s of distress noted
[2019-03-07] MEDS: PANTOPRAZOLE SOD 40 MG TABEC PO SCH (08:21)
[2019-03-07] MEDS ORDERED: LORAZEPAM 1 MG TAB PO PRN ×2 (10:15→21:00)
[2019-03-07] MEDS: HYDROCORTISONE 2.5% PR CRM 1 OZ TUBE PR SCH ×3 (10:40→21:00)
--- NOTE | 2019-03-07 12:32 | NUR ---
Pulmonary Critical Care Medicine DATE OF ENCOUNTER: 03/07/2019 SUBJECTIVE: continues on TPN d30% aa 10% @ 100 cc/hr iv 2 L/min oxygen by NC edema in left arm decreased REVIEW OF SYSTEMS: no headaches, no rash. OBJECTIVE: VITAL SIGNS: vital signs noted, reviewed GENERAL: Awake, no acute distress HEENT: Normocephalic and atraumatic. NECK: Supple. Throat midline. LUNGS: Bilateral air entry, decreased effort, few rhonchi. CARDIOVASCULAR: S1 and S2. No murmurs, rubs, or gallops. ABDOMEN: Postoperative, mostly soft. EXTREMITIES: No clubbing. No cyanosis. 1+ edema INTEGUMENT: No rash. No purpura. LABORATORY DATA: 129 na, k 4.1, cr .60. wbc 11/, hct 28, plt 206 IMPRESSION AND PLAN: 1. Spontaneous bacterial peritonitis. At risk for hospital-acquired organisms. 2. Postoperative respiratory insufficiency, now extubated. 3. Exploratory laparotomy, drainage of intra-abdominal ascites/peritonitis. No perforations/breakdown noted 4. History of cirrhosis. 5. Anemia, multifactorial. Anabaptism. 6. Hyperlipidemia. 7. Gastroesophageal reflux disease. 8. 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 9. Severe protein-calorie malnutrition. 10. Coagulopathy, mostly liver disease. 11. DVT : Left IJ, Left subclavian Broad-spectrum antibiotics to include coverage for healthcare-associated organisms TPN continue, wean off soon when eating adequately. bland gi diet continue continue warfarin per hematology Mobilize As he gets better, we can consider diuretic add-on in the next few days. follow sodium level in meanwhile Thank you very much, Dr. Moura and Dr. Lloyd for this consult. Please call for any questions.
[2019-03-07] MEDS: HYDROCODONE/APAP 7.5MG-325MG 1 EA TAB PO PRN (13:09)
[2019-03-07] MEDS: WARFARIN SOD 3 MG TAB PO SCH (17:10)
[2019-03-07] MEDS: CEFTRIAXONE SOD 1 GM/NS 50 ML 50 ML IV SCH (17:10)
--- NOTE | 2019-03-07 19:00 | NUR ---
RECEIVED PATIENT IN BEDSIDE SHIFT REPORT. PATIENT RESTING IN BED AT THIS TIME, STATES PAIN IS MANAGEABLE. TPN RUNNING TO R UPPER ARM PICC AT 100ML/HR. NO S&S OF DISTRESS NOTED. BED LOCKED IN LOWEST POSITION, SIDE RAILS UPX2, CALL LIGHT IN REACH.
[2019-03-07] MEDS ORDERED: CENTRAL TPN FORMULA 1 BAG IV SCH (20:00)
[2019-03-07] MEDS: FLUCONAZOLE 100 MG/NS 50 ML 50 ML IV SCH (22:29)
[2019-03-08] VITALS (8 sets, daily range): BP systolic 132–147; BP diastolic 72–85
[2019-03-08] MEDS: METRONIDAZOLE 500MG/NS 100ML 100 ML IV SCH ×4 (02:13→20:56)
[2019-03-08] MEDS: VANCOMYCIN 1GM/NS 250 ML 250 ML IV SCH ×2 (05:31→17:25)
[2019-03-08 05:51] LABS: BASOPHILS % 0.3 % (0.0-1.0); EOSINOPHILS # (AUTO) 0.2 (0.0-0.4); EOSINOPHILS % 1.2 % (0.0-6.0); HEMATOCRIT 30.3 % (38.2-49.6); HEMOGLOBIN 8.4 g/dL (14.0-18.0); LYMPHOCYTES # (AUTO) 0.7 (1.0-3.2); LYMPHOCYTES % 5.2 % (18.0-39.1); MEAN CORPUSCULAR HEMOGLOBIN 20.8 pg (28-32); MEAN CORPUSCULAR HGB CONC 27.7 g/dL (31-35); MEAN CORPUSCULAR VOLUME 75.2 fL (81-99); MONOCYTES # (AUTO) 0.7 (0.2-0.8); MONOCYTES % 5.4 % (4.4-11.3); NEUTROPHILS # (AUTO) 11.3 (2.1-6.9); NEUTROPHILS % 86.7 % (38.7-80.0); PLATELET COUNT 171 x10e3/uL (140-360); RED BLOOD COUNT 4.03 x10e6/uL (4.3-5.7); RED CELL DISTRIBUTION WIDTH 29.1 % (11.7-14.4)
[2019-03-08 06:10] LABS: INR 2.59; PROTHROMBIN TIME 28.5 seconds (11.9-14.5)
[2019-03-08 06:13] LABS: ALANINE AMINOTRANSFERASE 13 IU/L (0-55); ALBUMIN 1.6 g/dL (3.5-5.0); ALBUMIN/GLOBULIN RATIO 0.4 (0.8-2.0); ALKALINE PHOSPHATASE 198 IU/L (40-150); ANION GAP 8.8 mmol/L (8-16); BLOOD UREA NITROGEN 20 mg/dL (7-26); BUN/CREATININE RATIO 31 (6-25); CALCIUM 7.6 mg/dL (8.4-10.2); CARBON DIOXIDE 22 mmol/L (22-29); CHLORIDE 106 mmol/L (98-107); CREATININE, SERUM 0.65 mg/dL (0.72-1.25); EST GLOMERULAR FILTRATION RATE > 60 ML/MIN (60-); GLUCOSE 124 mg/dL (74-118); POTASSIUM 3.8 mmol/L (3.5-5.1); SODIUM 133 mmol/L (136-145)
[2019-03-08 07:09] LABS: ELLIPTOCYTE, RBC SLIGHT; EOSINOPHILS % (MANUAL) 2 % (0-7); LYMPHOCYTES % (MANUAL) 4 % (19-48); MICROCYTOSIS MODERATE; MONOCYTES % (MANUAL) 2 % (3.4-9.0); NEUTROPHILS % (MANUAL) 92 % (40-74); RBC MORPHOLOGY COMMENT ABNORMAL
[2019-03-08 07:10] LABS: HYPOCHROMASIA SLIGHT; PLATELET ESTIMATE ADEQUATE; POLYCHROMASIA FEW
[2019-03-08 07:11] LABS: PLATELET MORPHOLOGY COMMENT FEW LARGE
--- NOTE | 2019-03-08 07:18 | NUR ---
RECEIVED PATIENT RESTING IN BED NO S/S OF DISTRESS. BED LOW, WHEELS LOCKED, SIDE RAILS X2. CALL LIGHT IN REACH WILL CONTINUE TO MONITOR PATIENT.
--- NOTE | 2019-03-08 07:26 | Diagnostic Imaging Report ---
EXAMINATION: CHEST SINGLE (PORTABLE) INDICATION: ^chf ^[id number] ^0600 COMPARISON: 03/05/2019 FINDINGS: AP view TUBES and LINES: Stable right PICC LUNGS: Low lung volumes. Pulmonary vascular congestion and mild interstitial edema. Bilateral small pleural effusions, left. Right. PLEURA: No pneumothorax. HEART AND MEDIASTINUM: The cardiomediastinal silhouette is unremarkable. BONES AND SOFT TISSUES: No acute osseous lesion. Soft tissues are unremarkable. UPPER ABDOMEN: No free air under the diaphragm. IMPRESSION: Bilateral small pleural effusions, left greater right. Pulmonary vascular congestion and mild interstitial edema, accentuated by low lung volumes. Signed by: Dr. Binh Vaughn MD on 03/08/2019 7:23 AM
[2019-03-08] MEDS: PANTOPRAZOLE SOD 40 MG TABEC PO SCH (08:41)
[2019-03-08] MEDS: HYDROCORTISONE 2.5% PR CRM 1 OZ TUBE PR SCH ×3 (08:41→21:00)
[2019-03-08] MEDS ORDERED: FUROSEMIDE INJ 10 MG/ML 4 ML VIAL IV ONE (10:30)
--- NOTE | 2019-03-08 15:28 | NUR ---
SPOKE WITH ARSLAN MOSES AT [facility] STATES CASE IS WITH THE INSURANCE COSMETIC CONSULTANT SHOULD HAVE ANSWER TODAY
[2019-03-08] MEDS: WARFARIN SOD 3 MG TAB PO SCH (17:26)
[2019-03-08] MEDS: CEFTRIAXONE SOD 1 GM/NS 50 ML 50 ML IV SCH (17:26)
[2019-03-08] MEDS ORDERED: CENTRAL TPN FORMULA 1 BAG IV SCH (20:00)
[2019-03-08] MEDS ORDERED: POTASSIUM CHLORIDE 20 MEQ TAB CR PO STA (22:39)
--- NOTE | 2019-03-08 22:39 | NUR ---
Pulmonary Critical Care Medicine DATE OF ENCOUNTER: 03/08/2019 SUBJECTIVE: tpn at 100 cc/hr ivf 2 L/min oxygen by NC mobilizing CXR with minimally increased edema REVIEW OF SYSTEMS: no headaches, no rash. OBJECTIVE: VITAL SIGNS: vital signs noted, reviewed GENERAL: Awake, no acute distress HEENT: Normocephalic and atraumatic. NECK: Supple. Throat midline. LUNGS: Bilateral air entry, decreased effort, few rhonchi. CARDIOVASCULAR: S1 and S2. No murmurs, rubs, or gallops. ABDOMEN: Postoperative, mostly soft. EXTREMITIES: No clubbing. No cyanosis. 1+ edema INTEGUMENT: No rash. No purpura. LABORATORY DATA: na 133 , k 3.8, hco2 22, bun 20, cr .065. wbc 13, hct 30, plt 171 inr 2.59 IMPRESSION AND PLAN: 1. Spontaneous bacterial peritonitis. rx for hospital-acquired organisms. 2. Postoperative respiratory insufficiency, now extubated. 3. Exploratory laparotomy, drainage of intra-abdominal ascites/peritonitis. No perforations/breakdown noted 4. History of cirrhosis. 5. Anemia, multifactorial. Denominational. 6. Hyperlipidemia. 7. Gastroesophageal reflux disease. 8. 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 9. Severe protein-calorie malnutrition. 10. Coagulopathy, mostly liver disease. Warfarin. 11. DVT : Left IJ, Left subclavian Broad-spectrum antibiotics to include coverage for healthcare-associated organisms Light diuretics today TPN continue, wean off soon when eating adequately. bland gi diet continue continue warfarin per hematology Mobilize follow sodium level in meanwhile Thank you very much, Dr. Moura and Dr. Lloyd for this consult. Please call for any questions.
[2019-03-09 00:26] VITALS: BP 126/83
[2019-03-09] MEDS: METRONIDAZOLE 500MG/NS 100ML 100 ML IV SCH ×2 (00:41→08:39)
[2019-03-09 04:00] VITALS: BP 136/73
[2019-03-09] MEDS: VANCOMYCIN 1GM/NS 250 ML 250 ML IV SCH (04:46)
[2019-03-09 06:41] LABS: ANION GAP 8.8 mmol/L (8-16); BLOOD UREA NITROGEN 20 mg/dL (7-26); BUN/CREATININE RATIO 31 (6-25); CALCIUM 7.6 mg/dL (8.4-10.2); CARBON DIOXIDE 24 mmol/L (22-29); CHLORIDE 103 mmol/L (98-107); CREATININE, SERUM 0.65 mg/dL (0.72-1.25); EST GLOMERULAR FILTRATION RATE > 60 ML/MIN (60-); GLUCOSE 138 mg/dL (74-118); POTASSIUM 3.8 mmol/L (3.5-5.1); SODIUM 132 mmol/L (136-145)
--- NOTE | 2019-03-09 07:08 | NUR ---
Rcvd patient in report this am. Patient is asleep in bed at this time. No s/s of distress noted.
[2019-03-09 08:04] VITALS: BP 125/74
[2019-03-09] MEDS: PANTOPRAZOLE SOD 40 MG TABEC PO SCH (08:39)
[2019-03-09] MEDS: HYDROCORTISONE 2.5% PR CRM 1 OZ TUBE PR SCH (09:04)
[2019-03-09 09:07] VITALS: BP 125/74
--- NOTE | 2019-03-09 10:51 | NUR ---
[facility] DISCHARGE INFORMATION PATENT HAS BEEN ACCEPTED TO: *[facility] *[address] [facility] [address] ACCEPTING WHALE TRAINER: LORA DURAN ACCEPTING MD: ERI ROOM: 204 NURSE TO CALL REPORT TO: [phone] THE FOLLOWING DOCUMENTS MUST ACCOMPANY PATIENT FOR TRANSFER: MOT COPY OF CHART COPIED CHART: BY CAROLYNN DAMON CLERK MOT INFO RECEIVED FROM: ARSLAN MOSES PHYSICIAN'S ORDER/RECONCILED MED LIST: NURSE [facility] DNR: N/A
--- NOTE | 2019-03-09 11:07 | NUR ---
Call placed to Dr. Lloyd to inquire if he would like to change the surgical dressing on patient's abdomen prior to him discharging. Awaiting call back
[2019-03-09 12:45] VITALS: BP 125/71
--- NOTE | 2019-03-09 13:31 | NUR ---
Sterile dressing changed to right upper picc
--- NOTE | 2019-03-09 13:32 | NUR ---
Report called and spoke with Cecelia
--- NOTE | 2019-03-09 14:20 | NUR ---
Patient discharged from hospital to [facility]. Report called to Cecelia. Patient went with PICC line and TPN. Dressing was changed prior to discharge by Dr. Lloyd. 2 JUAN drains were removed.
[2019-03-09] MEDS: HYDROCODONE/APAP 7.5MG-325MG 1 EA TAB PO PRN (14:46)
--- NOTE | 2019-03-09 19:50 | NUR ---
Pulmonary Critical Care Medicine DATE OF ENCOUNTER: 03/09/2019 SUBJECTIVE: on tpn eats more mobilizing REVIEW OF SYSTEMS: no headaches, no rash. OBJECTIVE: VITAL SIGNS: vital signs noted, reviewed GENERAL: Awake, no acute distress HEENT: Normocephalic and atraumatic. NECK: Supple. Throat midline. LUNGS: Bilateral air entry, decreased effort, few rhonchi. CARDIOVASCULAR: S1 and S2. No murmurs, rubs, or gallops. ABDOMEN: Postoperative, mostly soft. EXTREMITIES: No clubbing. No cyanosis. 1+ edema INTEGUMENT: No rash. No purpura. LABORATORY DATA: na 132, k 3.8, cr .65. IMPRESSION AND PLAN: 1. Spontaneous bacterial peritonitis. rx for hospital-acquired organisms. 2. Postoperative respiratory insufficiency, now extubated. 3. Exploratory laparotomy, drainage of intra-abdominal ascites/peritonitis. No perforations/breakdown noted 4. History of cirrhosis. 5. Anemia, multifactorial. Gnosticism. 6. Hyperlipidemia. 7. Gastroesophageal reflux disease. 8. 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 9. Severe protein-calorie malnutrition. 10. Coagulopathy, mostly liver disease. Warfarin. 11. DVT : Left IJ, Left subclavian Broad-spectrum antibiotics to include coverage for healthcare-associated organisms Light diuretics today TPN continue, wean off soon when eating adequately. bland gi diet continue continue warfarin per hematology Mobilize follow sodium level in meanwhile LTAC transfer ok Thank you very much, Dr. Moura and Dr. Lloyd for this consult. Please call for any questions.
--- NOTE | 2019-04-05 17:46 | Operative Report ---
DATE OF PROCEDURE: 02/26/2019 SURGEON: Easton Lloyd MD PREOPERATIVE DIAGNOSIS: Peritonitis, rule out bowel perforation. POSTOPERATIVE DIAGNOSIS: Peritonitis, likely secondary to infected ascites. No bowel perforation. OPERATIONS PERFORMED: Exploratory laparotomy, debridement and drainage of multiple intraabdominal abscesses and abdominal wall. RIB CUTTER: Jeffrey Lloyd MD. ANESTHESIA: General endotracheal. COMPLICATIONS: None. ESTIMATED BLOOD LOSS: 100 mL. DESCRIPTION OF PROCEDURE: With the patient lying in bed in the supine position under good general endotracheal anesthesia, the abdomen was prepped with Betadine solution and draped in the usual manner. The old incision was then opened and the fascia was opened and the peritoneum was entered. Immediately upon entering the peritoneal cavity, a large amount of purulent and ascitic fluid was encountered. Cultures were taken. All of the fluid was aspirated. Once this was done, multiple loculations were encountered in all quadrants of the abdominal cavity. The patient had a large amount of fluid, several liters of fluid in the abdominal cavity, which was consistent with some infected ascites. However, we needed to make sure that there was no kind of perforation. The bowel was totally run throughout the entire abdominal cavity and there was no sign of any perforation anywhere. The patient's old anastomosis was intact, so it was our impression this is probably more than likely an infected ascites and there was no actual perforation. 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 The abdomen was then copiously irrigated and debrided of all the fibrinous material with many liters of saline solution. The abdominal wall was similarly debrided. Once all of this was done, multiple drains were left in the right lower quadrant, left lower quadrant and sub midline fascia using 10 flat Laurent-Hernandez and brought out through separate stab wound incisions and the wound was then closed in layers. The midline fascia was closed with interrupted lznyyno-ot-oyobs of #1 Prolene. Subcutaneous tissue was drained with a quarter-inch Miguel drain and the skin was closed with loose intermittent 2-0 nylon. A dressing was applied. The sponge, lap, and needle count was correct. The patient tolerated the procedure well and returned to the recovery room in critical condition. MD JONA Ibarra/CYNTHIA /[id number]
== END 2019-03-09 14:49 | DRG 356 ==
LOC: ER 14:31 → ERHOLD 16:23 → ICU 22:15 → MED/SURG 03-02 17:22
PROC: 0JB80ZZ Excision of Abdomen Subcutaneous Tissue and Fascia, Open Approach (ICD-10-PCS; 2019-02-26)
PROC: 0DH67UZ Insertion of Feeding Device into Stomach, Via Natural or Artificial Opening (ICD-10-PCS; principal; 2019-02-26 19:14)
PROC: 5A1945Z Respiratory Ventilation, 24-96 Consecutive Hours (ICD-10-PCS; 2019-02-28)
PROC: 0BH17EZ Insertion of Endotracheal Airway into Trachea, Via Natural or Artificial Opening (ICD-10-PCS; 2019-02-28)
PROC: 02HV33Z Insertion of Infusion Device into Superior Vena Cava, Percutaneous Approach (ICD-10-PCS; 2019-03-03)
DX: K65.3 Choleperitonitis (principal); E43 Unspecified severe protein-calorie malnutrition; J95.821 Acute postprocedural respiratory failure; I81 Portal vein thrombosis; D68.4 Acquired coagulation factor deficiency; T81.30XA Disruption of wound, unspecified, initial encounter; K91.89 Other postprocedural complications and disorders of digestive system; K76.6 Portal hypertension; M86.9 Osteomyelitis, unspecified; R18.8 Other ascites; N39.0 Urinary tract infection, site not specified; R06.89 Other abnormalities of breathing; K74.60 Unspecified cirrhosis of liver; Z68.25 Body mass index [BMI] 25.0-25.9, adult; K21.9 Gastro-esophageal reflux disease without esophagitis; Z86.718 Personal history of other venous thrombosis and embolism; Z90.49 Acquired absence of other specified parts of digestive tract; Z68.28 Body mass index [BMI] 28.0-28.9, adult; E88.09 Other disorders of plasma-protein metabolism, not elsewhere classified; D50.9 Iron deficiency anemia, unspecified; Z53.1 Procedure and treatment not carried out because of patient's decision for reasons of belief and group pressure
CPT/HCPCS: 36415; 36569; 36600; 71045; 74176; 74470; 80048; 80053; 80202; 81001; 82550; 82553; 82805; 82948; 83605; 83690; 83735; 84484; 85025; 85610; 85730; 87040; 87071; 87075; 87086; 87102; 87116; 87186; 87205; 87206; 93005; 93971; 94002; 94003; 96365; 96366; 97139; 99284; J0692; J0696; J1100; J1170; J1200; J1450; J1650; J1750; J1940; J2001; J2250; J2405; J3010; J3370; J7030; J7040; J7050; J7121

== ENCOUNTER 2019-04-25 14:28 | Inpatient (IN) | payer OTHER ==
[~2019-04-25] VITALS: Ht 167.6 cm; Wt 56.7 kg
[2019-04-25] MEDS ORDERED: SODIUM CHLORIDE 0.9% 1000ML 1,000 ML IV STA (14:47)
[2019-04-25] MEDS ORDERED: DIATRIZOATE MEGL/DIATRIZOA SOD 30 ML BTL PO ONE (15:14)
[2019-04-25 15:52] LABS: BASOPHILS # (AUTO) 0.1 (0.0-0.1); BASOPHILS % 0.8 % (0.0-1.0); EOSINOPHILS # (AUTO) 0.2 (0.0-0.4); HEMATOCRIT 37.4 % (38.2-49.6); HEMOGLOBIN 11.1 g/dL (14.0-18.0); LYMPHOCYTES % 12.8 % (18.0-39.1); MEAN CORPUSCULAR HEMOGLOBIN 21.5 pg (28-32); MEAN CORPUSCULAR HGB CONC 29.7 g/dL (31-35); MEAN CORPUSCULAR VOLUME 72.5 fL (81-99); MONOCYTES # (AUTO) 0.6 (0.2-0.8); MONOCYTES % 8.2 % (4.4-11.3); NEUTROPHILS # (AUTO) 5.7 (2.1-6.9); NEUTROPHILS % 74.7 % (38.7-80.0); PLATELET COUNT 302 x10e3/uL (140-360); RED BLOOD COUNT 5.16 x10e6/uL (4.3-5.7); RED CELL DISTRIBUTION WIDTH 18.7 % (11.7-14.4)
[2019-04-25 15:58] LABS: INR 2.58; PROTHROMBIN TIME 28.4 seconds (11.9-14.5)
[2019-04-25 16:05] LABS: ALANINE AMINOTRANSFERASE 25 IU/L (0-55); ALBUMIN 2.7 g/dL (3.5-5.0); ALBUMIN/GLOBULIN RATIO 0.6 (0.8-2.0); ALKALINE PHOSPHATASE 166 IU/L (40-150); ANION GAP 10.9 mmol/L (8-16); BLOOD UREA NITROGEN 12 mg/dL (7-26); BUN/CREATININE RATIO 15 (6-25); CALCIUM 8.7 mg/dL (8.4-10.2); CARBON DIOXIDE 21 mmol/L (22-29); CHLORIDE 111 mmol/L (98-107); CREATININE, SERUM 0.81 mg/dL (0.72-1.25); EST GLOMERULAR FILTRATION RATE > 60 ML/MIN (60-); GLUCOSE 108 mg/dL (74-118); LIPASE 27 U/L (8-78); SODIUM 140 mmol/L (136-145)
[2019-04-25 16:07] LABS: POTASSIUM 2.9 mmol/L (3.5-5.1)
[2019-04-25 16:30] VITALS: BP 113/67
[2019-04-25] MEDS ORDERED: POTASSIUM CHLORIDE 10MEQ EA PO NR (16:30)
[2019-04-25 17:09] LABS: BILIRUBIN,URINE NEGATIVE (NEGATIVE); CLARITY,URINE CLOUDY (CLEAR); COLOR,URINE YELLOW (YELLOW); KETONES,URINE NEGATIVE (NEGATIVE); LEUKOCYTE ESTERASE ,URINE NEGATIVE (NEGATIVE); NITRITE,URINE NEGATIVE (NEGATIVE); PROTEIN,URINE DIPSTICK TRACE (NEGATIVE); URINE UROBILINOGEN 0.2 mg/dL (0.2 - 1)
[2019-04-25 17:23] LABS: BACTERIA,URINE RARE /HPF
[2019-04-25 17:24] LABS: CALCIUM OXALATE CRYSTALS,UR MANY (FEW); RBC,URINE 0-5 /HPF (0-5)
--- NOTE | 2019-04-25 17:34 | Diagnostic Imaging Report ---
EXAMINATION: CT of the abdomen and pelvis without contrast. TECHNIQUE: Helical CT images of the abdomen and pelvis were performed from the lung bases to the lesser trochanters. No intravenous contrast was given . Coronal and sagittal reformatted images were obtained.Dose modulation, iterative reconstruction, and/or weight based adjustment of the mA/kV was utilized to reduce the radiation dose to as low as reasonably achievable. COMPARISON: None. CLINICAL HISTORY:Bloody stool DISCUSSION: ABSENCE OF INTRAVENOUS CONTRAST DECREASES SENSITIVITY FOR DETECTION OF FOCAL LESIONS AND VASCULAR PATHOLOGY. ABDOMEN/PELVIS: LOWER THORAX: Consolidation in the right lower lung. HEPATOBILIARY:Enlargement of the caudate and left lobe. SPLEEN: Splenomegaly measuring 20 cm. PANCREAS: No focal masses or ductal dilatation. ADRENALS: No adrenal nodules. KIDNEYS/URETERS: No hydronephrosis, stones, or solid mass lesions. PELVIC ORGANS/BLADDER: The bladder is normal. PERITONEUM/RETROPERITONEUM: No free fluid. Stranding in the mesentery. LYMPH NODES: No intra-abdominal,retroperitoneal, pelvic or inguinal lymphadenopathy. VESSELS: The celiac trunk,superior and inferior mesenteric and bilateral renal arteries are patent The portal, superior mesenteric and splenic veins are patent. GI TRACT: Postsurgical change to the distal small bowel. No obstruction. BONES AND SOFT TISSUES: No bony destructive lesions. No soft tissue abnormalities. IMPRESSION: Right lower lobe posterior atelectasis versus pneumonia. Post surgical change to the distal small bowel. No obstruction. Cirrhotic liver morphology with splenomegaly. Signed by: Dr. Deo Flynn M.D. on 04/25/2019 5:30 PM
[2019-04-25] MEDS ORDERED: POTASSIUM CHLORIDE 20MEQ/100ML 100 ML IV NR (18:00)
[2019-04-25 22:28] VITALS: BP 113/67
[2019-04-25 22:34] VITALS: BP 113/67
[2019-04-26] VITALS (8 sets, daily range): BP systolic 106–127; BP diastolic 60–83
[2019-04-26] MEDS ORDERED: ATIVAN1 MG (01:27)
[2019-04-26] MEDS ORDERED: SERTRALINE HCL50 MG PO (01:27)
[2019-04-26] MEDS ORDERED: MULTI-VITAMIN1 EACH (01:27)
[2019-04-26] MEDS ORDERED: SUPER B COMPLE1 EACH (01:27)
[2019-04-26] MEDS ORDERED: MEGESTROL400 MG/10 PO (01:27)
--- NOTE | 2019-04-26 02:49 | Consultation ---
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 Otherwise, asymptomatic. No abdominal pain. No nausea, no vomiting. No heartburn, no acid reflux. No change in his bowel habit. No fever. He have had a colonoscopy by Dr. Oliverio Moura around 2013 and 2014 and admitted for observation. SOCIAL HISTORY: He does not smoke or drink. PAST SURGICAL HISTORY: Bowel resection due to superior vein thrombosis. MEDICATION: At home, Coumadin, Protonix, vitamin and probiotic. ALLERGIES: TO IODINE. PHYSICAL EXAMINATION: GENERAL: Awake, alert, oriented, afebrile. VITAL SIGNS: Temperature 98, blood pressure 113/64, normal sclera. NECK: Supple. LUNGS: Clear. HEART: Irregularly irregular rhythm. Rhythm. ABDOMEN: Soft. No acute sign. EXTREMITIES: No edema. LABORATORY DATA: White cell count 7.58, hemoglobin 11, hematocrit 37, the platelets 302, BUN 12, creatinine 0.8, sodium 140, potassium 2.9, and been replaced. Alkaline phosphate is 166, AST normal, ALT normal. Total bilirubin normal. Lipase normal. PT 28. The patient is on Coumadin, PTT is 62. His INR is 2.05. IMPRESSION: Most likely due to internal hemorrhoid, the case was discussed at length with Dr. Easton Lloyd at the bedside. The patient is asymptomatic now. We will continue observation. Keep him n.p.o. for tonight. Recheck his blood count early in the morning. Start him on Protonix and we will follow. Pradeep Hodges MD RD/MODL /[id number]
[2019-04-26 05:52] LABS: BASOPHILS # (AUTO) 0.1 (0.0-0.1); BASOPHILS % 0.8 % (0.0-1.0); EOSINOPHILS # (AUTO) 0.2 (0.0-0.4); EOSINOPHILS % 2.6 % (0.0-6.0); HEMATOCRIT 33.7 % (38.2-49.6); HEMOGLOBIN 10.1 g/dL (14.0-18.0); LYMPHOCYTES # (AUTO) 1.3 (1.0-3.2); LYMPHOCYTES % 14.3 % (18.0-39.1); MEAN CORPUSCULAR HEMOGLOBIN 21.6 pg (28-32); MEAN CORPUSCULAR VOLUME 72.2 fL (81-99); MONOCYTES # (AUTO) 0.8 (0.2-0.8); MONOCYTES % 8.5 % (4.4-11.3); NEUTROPHILS # (AUTO) 6.5 (2.1-6.9); NEUTROPHILS % 73.4 % (38.7-80.0); PLATELET COUNT 323 x10e3/uL (140-360); RED BLOOD COUNT 4.67 x10e6/uL (4.3-5.7); RED CELL DISTRIBUTION WIDTH 18.8 % (11.7-14.4)
[2019-04-26 06:22] LABS: ANION GAP 11.1 mmol/L (8-16); BLOOD UREA NITROGEN 12 mg/dL (7-26); BUN/CREATININE RATIO 14 (6-25); CALCIUM 8.4 mg/dL (8.4-10.2); CARBON DIOXIDE 18 mmol/L (22-29); CHLORIDE 113 mmol/L (98-107); CREATININE, SERUM 0.83 mg/dL (0.72-1.25); EST GLOMERULAR FILTRATION RATE > 60 ML/MIN (60-); GLUCOSE 85 mg/dL (74-118); MAGNESIUM 1.4 MG/DL (1.3-2.1); POTASSIUM 3.1 mmol/L (3.5-5.1); SODIUM 139 mmol/L (136-145)
[2019-04-26] MEDS: PANTOPRAZOLE 40 MG 10ML VIAL IV SCH (08:30)
--- NOTE | 2019-04-26 09:12 | NUR ---
PT IN BED ESTING NO DISTRESS NOTED DENIES PAIN
[2019-04-26] MEDS ORDERED: POTASSIUM CHLORIDE 20MEQ/100ML 100 ML IV ONE (11:00)
[2019-04-26] MEDS ORDERED: POTASSIUM CHLORIDE 10MEQ EA PO NR (11:00)
--- NOTE | 2019-04-26 13:14 | NUR ---
IV INFILTRATED DCD,RESTARTED TO RT HAND 20 GAUGE
--- NOTE | 2019-04-26 16:42 | NUR ---
Nutrition Intervention Note RD Recommendation(s) for Physician: The patient meets criteria for MODERATE protein-calorie malnutrition. Ensure Clear TID Plan of Care: RD following, monitoring for tolerance and adequacy Nutrition reason for involvement: RD Assessment (04/26/19) Chart reviewed. Labs and meds reviewed. Pt is a 58 year old male admitted with GI bleed and hypokalemia. Spoke to pt and family members. Pt was advanced to a GI soft diet from NPO today. Prior to admission, pt reported he had a good appetite and was eating >50% of meals. Pt usually drinks the clear version of Boost nutrition supplement 2-3 times per day. Pt was interested in receiving Ensure clear during admission. Pt has lost weight in the past 3 months due to bowel resection per family member. Pt used to weigh 150 lbs 3 months ago. Pt currently has a wt of 120 lbs in chart. If accurate, this would be a 20% wt loss in 3 months severe wt loss. No chewing/swallowing issues. Pt also has occasional diarrhea. Principal Problems/Diagnoses: GI bleed and hypokalemia PMH: HLD, COPD, superior vein thrombosis with ischemic bowel s/p bowel resection, idiopathic cirrhosis, chronic anticoagulation GI: last recorded BM 04/26 Skin: No pressure ulcers Labs: (04/26) K 3.1, Meds: (04/26) protonix Ht: 66 in Wt:120 lb BMI: 19.4 kg/m2 IBW:142 lb Malnutrition Evaluation (04/26/19) The patient meets criteria for MODERATE protein-calorie malnutrition. Energy intake: Adequate PO intake reported Weight loss: >7.5% in 3 months Muscle loss: Mild muscle depletion in temporal region and moderate muscle depletion in lower extremities Supporting Evidence: Fluid accumulation: unable to evaluate Functional Status: unable to evaluate, Nutrition Prescription (Diet Order): GI Soft Estimated Nutritional Needs: 4712-8071 calories/day (25-35 kcal/kg CBW) 55-82 g protein/day (1-1.5 g pro/kg CBW) Diet Adequacy: Meeting calorie needs, Meeting protein needs per pt report Tolerance: Tolerating PO Diet Education Needs Assessment: Diet education not indicated at this time Nutrition Care Level: Low Nutrition Diagnosis: Moderate Protein-Calorie Malnutrition related to h/o small bowel resection as evidenced by >7.5% wt loss in 3 months and mild-moderate muscle depletion. Goal: Patient will meet 75-100% of estimated needs by follow up Progress: N/A Interventions: Fiber-modified diet, Commercial beverage Monitoring/Evaluation: Total energy intake, Total protein intake, Modified diet, Liquid supplement, Weight change Signed: Autumn Honeycutt RD, LD
--- NOTE | 2019-04-26 17:06 | Progress Note ---
DATE: 04/26/2019 SUBJECTIVE: Doing well, anxious of what is yet to come. I showed him that for the next 24 hours, we will continue for observation. We are hoping that the bleeding will stop spontaneously. He was taking a blood thinner that has been stopped. Of course, the bleeding could be any cause from his GI tract, but we hoping it is just hemorrhoid. I started him on steroid cream today. Hemodynamically stable. OBJECTIVE: VITAL SIGNS: Afebrile. GI: Has no GI complaint. GENERAL: Awake, alert, and oriented. LABORATORY DATA: His hemoglobin dropped from 11 to 10 and hematocrit from 37 to 33. Potassium is 3.1, is being replaced. So, the next 24-hour plan is to continue observation and to see given the steroid cream. If he continued to bleed, we will then probably order RBC scan. Pradeep Hodges MD RD/CYNTHIA /[id number]
[2019-04-26] MEDS ORDERED: DEXAMETHASONE PHOS 10MG INJ 20 MG in SODIUM CHLORIDE 0.9% 50ML 50 ML IV ONE (18:00)
--- NOTE | 2019-04-26 18:14 | NUR ---
PRE MEDICATION FOR IRON INFUSION STARTED,PT DENIES PAIN
[2019-04-26] MEDS ORDERED: DIPHENHYDRAMINE HCL INJ 25 MG in SODIUM CHLORIDE 0.9% 50ML 50 ML IV ONE ×4 (18:30)
[2019-04-26] MEDS ORDERED: FAMOTIDINE INJ 20 MG in SODIUM CHLORIDE 0.9% 50ML 50 ML IV ONE (19:00)
--- NOTE | 2019-04-26 19:05 | NUR ---
Completed bedside nursing report with morning nurse. Pt alert and orient to name. Lying supine in bed HOB 30 degrees. Denies pain at this time. Family at bedside. Call [place] within reach. Will continue to monitor.
--- NOTE | 2019-04-26 19:55 | NUR ---
Rounded with Dr. Alexis Lloyd ordered Anusol HC supp until Prot foam available in am.
[2019-04-26] MEDS ORDERED: IRON DEXTRAN INJ 50 MG in SODIUM CHLORIDE 0.9% 100 ML IV ONE (20:00)
[2019-04-26] MEDS ORDERED: HYDROCORTISONE ACETATE 25 MG/SUPP.RECT SUPP RC ONE (21:00)
[2019-04-26 21:02] LABS: BASOPHILS % 0.4 % (0.0-1.0); EOSINOPHILS # (AUTO) 0.1 (0.0-0.4); EOSINOPHILS % 1.1 % (0.0-6.0); HEMATOCRIT 35.4 % (38.2-49.6); HEMOGLOBIN 10.6 g/dL (14.0-18.0); LYMPHOCYTES # (AUTO) 0.5 (1.0-3.2); LYMPHOCYTES % 6.2 % (18.0-39.1); MEAN CORPUSCULAR HEMOGLOBIN 21.7 pg (28-32); MEAN CORPUSCULAR HGB CONC 29.9 g/dL (31-35); MEAN CORPUSCULAR VOLUME 72.4 fL (81-99); MONOCYTES # (AUTO) 0.2 (0.2-0.8); MONOCYTES % 2.7 % (4.4-11.3); NEUTROPHILS # (AUTO) 6.6 (2.1-6.9); NEUTROPHILS % 88.9 % (38.7-80.0); PLATELET COUNT 314 x10e3/uL (140-360); RED BLOOD COUNT 4.89 x10e6/uL (4.3-5.7); RED CELL DISTRIBUTION WIDTH 18.7 % (11.7-14.4)
[2019-04-26] MEDS ORDERED: IRON DEXTRAN INJ 500 MG in SODIUM CHLORIDE 0.9% 500ML 500 ML IV ONE (21:30)
[2019-04-26] MEDS: HYDROCORTISONE 1% CREAM 30 GM TUBE TOP SCH (22:30)
[2019-04-27] VITALS (8 sets, daily range): BP systolic 104–114; BP diastolic 56–69
[2019-04-27] MEDS: HYDROCORTISONE 1% CREAM 30 GM TUBE TOP SCH (05:21)
[2019-04-27 05:27] LABS: BASOPHILS % 0.1 % (0.0-1.0); HEMATOCRIT 34.4 % (38.2-49.6); HEMOGLOBIN 10.3 g/dL (14.0-18.0); LYMPHOCYTES # (AUTO) 0.7 (1.0-3.2); LYMPHOCYTES % 8.9 % (18.0-39.1); MEAN CORPUSCULAR HEMOGLOBIN 21.6 pg (28-32); MEAN CORPUSCULAR HGB CONC 29.9 g/dL (31-35); MEAN CORPUSCULAR VOLUME 72.1 fL (81-99); MONOCYTES # (AUTO) 0.4 (0.2-0.8); MONOCYTES % 4.6 % (4.4-11.3); NEUTROPHILS # (AUTO) 6.9 (2.1-6.9); NEUTROPHILS % 85.7 % (38.7-80.0); PLATELET COUNT 342 x10e3/uL (140-360); RED BLOOD COUNT 4.77 x10e6/uL (4.3-5.7); RED CELL DISTRIBUTION WIDTH 18.4 % (11.7-14.4)
[2019-04-27 05:43] LABS: ANION GAP 11.6 mmol/L (8-16); BLOOD UREA NITROGEN 14 mg/dL (7-26); BUN/CREATININE RATIO 17 (6-25); CALCIUM 8.9 mg/dL (8.4-10.2); CARBON DIOXIDE 17 mmol/L (22-29); CHLORIDE 115 mmol/L (98-107); CREATININE, SERUM 0.83 mg/dL (0.72-1.25); EST GLOMERULAR FILTRATION RATE > 60 ML/MIN (60-); GLUCOSE 146 mg/dL (74-118); POTASSIUM 3.6 mmol/L (3.5-5.1); SODIUM 140 mmol/L (136-145)
--- NOTE | 2019-04-27 06:40 | Diagnostic Imaging Report ---
EXAMINATION: CHEST SINGLE (PORTABLE) COMPARISON: Chest x-ray INDICATION: ^CONGESTION ^[id number] ^[id number] DISCUSSION: Frontal view of the chest obtained at 0552 hours. HEART AND MEDIASTINUM: The cardiomediastinal silhouette is unremarkable. LINES: None. LUNGS: The lungs are well inflated and clear. No pneumonia or pulmonary edema. Pulmonary vascular markings are normal. PLEURA: No pleural effusion or pneumothorax. BONES AND SOFT TISSUES: No focal osseous lesion. The soft tissues are normal. IMPRESSION: No acute cardiopulmonary disease. Signed by: Dr. Candace Nguyen MD on 04/27/2019 6:37 AM
[2019-04-27] MEDS: MULTIVITAMINS/MINERALS TAB PO SCH (08:26)
[2019-04-27] MEDS: PANTOPRAZOLE 40 MG 10ML VIAL IV SCH (08:26)
[2019-04-27] MEDS ORDERED: MEGACE 400MG/ 10ML CUP PO SCH (09:00)
[2019-04-27] MEDS: HC ACETATE/PRAMOXINE HCL 10 GM FOAM RC SCH ×3 (09:00→20:49)
--- NOTE | 2019-04-27 10:01 | NUR ---
Dr Pike had rounds, new order recvd to do CBC lab tomorrow and d/c kalyani mccain
--- NOTE | 2019-04-27 13:36 | Consultation ---
DATE OF CONSULTATION: 04/26/[address] Easton Lloyd. HISTORY OF PRESENT ILLNESS: Mr. Verde is a 58-year-old male, very well known to me from his previous admissions for SMV thrombosis. The patient presents with rectal bleed. Supposedly, he has hemorrhoids, subsequently admitted. SOCIAL HISTORY: Noncontributory. FAMILY HISTORY: Noncontributory. ALLERGIES: REPORTED TO IODINE. MEDICATIONS: At this time: 1. Protonix. 2. Zoloft. 3. Lorazepam. 4. Megace. 5. Multivitamins. 6. Tylenol. REVIEW OF SYSTEMS: HEENT: Normal. CARDIAC: Normal. RESPIRATORY: Normal. GI: SMV thrombosis. : Normal. MUSCULOSKELETAL: Normal. SKIN: Normal. BREASTS: Normal. NEUROENDOCRINE: Essentially normal. HEMATOLOGICAL: A Jehovah witness, however, has had SMV thrombosis, is hypercoagulable. Also has cirrhosis of liver. PHYSICAL EXAMINATION: GENERAL: A moderately built male, slightly anemic. NECK: No palpable adenopathy. HEART: Within normal limits. LUNGS: Clear. ABDOMEN: Soft. Midline scar surgery is seen. RECTAL: Deferred. CENTRAL NERVOUS SYSTEM: Essentially normal. EXTREMITIES: Essentially normal. LABORATORY DATA: Lab shows a hemoglobin of 10.1, hematocrit of 33.7 with low MCV, low MCHC, MCHC being 27, high RDW, white count of 8900, and platelets of 323,000. INR 2.56, bilirubin 0.4, SGOT 24, SGPT 25, and alkaline phosphatase 166. Sodium 139, potassium 3.1, chloride is 113, CO2 18, BUN 12, and creatinine 0.8. IMPRESSION: 1. Iron deficiency anemia. 2. Hypokalemia of 2.9, now 3.1. 3. Hypoalbuminemia of 2.7. 4. Hyperglobulinemia of 4.4. 5. High alkaline phosphatase of 166. 6. Cirrhosis of liver. 7. Mesenteric vein thrombosis. PLAN, COMMENTS, AND SUGGESTIONS: IV InFed. Please discontinue Megace, as this will cause more thromboembolic phenomenon. I will confine myself to Hematology only. Thank you very much for allowing me to participate in the management of this patient. MD PATRICK Quezada/CYNTHIA /[id number] cc: MD Pradeep Blum MD Steve S Haddad, MD
--- NOTE | 2019-04-27 16:50 | NUR ---
per Dr Hodges watch his stool for blood and repeat his Hgb level tomorrow AM
--- NOTE | 2019-04-27 17:23 | Progress Note ---
DATE: 04/27/2019 ADDENDUM: He has mentioned to me also that Dr. Oliverio Moura performed twice colonoscopy in the past. He does not recall exactly the time. I advised him that after leaving the hospital to go back and see Dr. Oliverio Mouar for further instruction on when he is supposed to have colonoscopy again specially with this episode of lower GI bleed. Pradeep Hodges MD RD/MODL /[id number]
--- NOTE | 2019-04-27 18:18 | Progress Note ---
DATE: 04/27/2019 SUBJECTIVE: Doing well. His bleeding has subsided drastically. His hemoglobin and hematocrit are stable from yesterday. His electrolytes; sodium, potassium, BUN and creatinine are normal. He is awake, alert, oriented, afebrile, tolerating diet well. Dr. Pike did come and see him. Nothing to add from GI standpoint, still the bleeding is not very clear what the cause is, perhaps could be hemorrhoid. He already received steroid foam. Most likely it was due to the blood thinner that the patient was receiving due to past history of ischemic bowel and bowel resection. If he is doing well tomorrow as well, we can send him home. Pradeep Hodges MD RD/CYNTHIA /[id number]
--- NOTE | 2019-04-27 19:13 | NUR ---
WALKING ROUNDS PERFORMED, RECEIVED PT SITTING ON COUCH. AAOX3, RR EVEN AND NON-LABORED, ON ROOM AIR. NO S/SX OF DISTRESS NOTED. LEFT PT SITTING ON COUCH. CALL LIGHT WITHIN REACH. FAMILY AT BEDSIDE.
--- NOTE | 2019-04-27 20:40 | NUR ---
APPLIED ABDOMINAL PAD OVER HEALED INCISION TO ABDOMEN AND SECURED WITH ABDOMINAL BINDER PER PT REQUEST.
[2019-04-27] MEDS: SERTRALINE HCL 50 MG TAB PO SCH (20:49)
[2019-04-27] MEDS: LORAZEPAM 1 MG TAB PO SCH (20:49)
[2019-04-28] VITALS (7 sets, daily range): BP systolic 108–120; BP diastolic 62–78
[2019-04-28 05:41] LABS: BASOPHILS % 0.5 % (0.0-1.0); EOSINOPHILS # (AUTO) 0.1 (0.0-0.4); EOSINOPHILS % 1.6 % (0.0-6.0); HEMATOCRIT 32.2 % (38.2-49.6); HEMOGLOBIN 9.6 g/dL (14.0-18.0); LYMPHOCYTES # (AUTO) 1.2 (1.0-3.2); LYMPHOCYTES % 14.4 % (18.0-39.1); MEAN CORPUSCULAR HEMOGLOBIN 21.8 pg (28-32); MEAN CORPUSCULAR HGB CONC 29.8 g/dL (31-35); MONOCYTES # (AUTO) 0.7 (0.2-0.8); MONOCYTES % 8.3 % (4.4-11.3); NEUTROPHILS # (AUTO) 6.1 (2.1-6.9); NEUTROPHILS % 74.7 % (38.7-80.0); PLATELET COUNT 266 x10e3/uL (140-360); RED BLOOD COUNT 4.41 x10e6/uL (4.3-5.7); RED CELL DISTRIBUTION WIDTH 18.6 % (11.7-14.4)
[2019-04-28] MEDS: HC ACETATE/PRAMOXINE HCL 10 GM FOAM RC SCH ×3 (05:49→21:08)
--- NOTE | 2019-04-28 07:10 | NUR ---
PATIENT IN BED RESTING WITH HEAD OF BED ELEVATED, NO DISTRESS NOTED. DENIED PAIN AT THIS TIME. ABDOMINAL BINDER IN PLACE FROM PREVIOUS SURGERY. BED IN LOWER POSITION, CALL LIGHT AT REACH.
[2019-04-28] MEDS: MULTIVITAMINS/MINERALS TAB PO SCH (08:29)
[2019-04-28] MEDS: PANTOPRAZOLE 40 MG 10ML VIAL IV SCH (08:29)
[2019-04-28] MEDS ORDERED: PHYTONADIONE 10 MG/ML AMP SQ ONE (10:00)
--- NOTE | 2019-04-28 10:45 | NUR ---
MD IN TO SEE PATIENT, NEW ORDER RECEIVED.
--- NOTE | 2019-04-28 16:20 | NUR ---
PATIENT OUT OF BED TO CHAIR TALKING TO FAMILY MEMBER VISITING. CALL LIGHT AT EASY REACH.
--- NOTE | 2019-04-28 19:18 | NUR ---
PT IS RESTING IN BED WITH AT BEDSIDE. RESPIRATION IS EVEN AND UNLABORED, NO DISTRESS NOTED. BED IN THE LOWEST POSITION, LOCKED, AND CALL LIGHT WITHIN REACH. WILL CONTINUE TO MONITOR.
--- NOTE | 2019-04-28 20:11 | NUR ---
PAGE DR Alexis TEMPLE PER DR RODRIGUES TO ASK HIM IF IT IS OKAY FOR DR RODRIGUES TO DO A RBC SCAN. AWAITING CALL BACK. WILL CONTINUE MONITOR.
--- NOTE | 2019-04-28 20:14 | NUR ---
PER DR Loretta TEMPLE IT IS OKAY FOR RBC SCAN. NOTIFY DR RODRIGUES THAT IT IS OKAY WITH DR SHARIF. WILL CONTINUE TO MONITOR.
--- NOTE | 2019-04-28 20:40 | Progress Note ---
DATE: 04/28/2019 Mr. Alvarez status post small bowel resection after an episode of ischemic bowel. Overall stable, however, today he had another episode of bleed. His hemoglobin at 9.6 today and hematocrit is 32. Yesterday, his hemoglobin was [address] Lloyd saw him and evaluated him, think it is internal hemorrhoid. He is maintained on Proctofoam rectally. Otherwise, asymptomatic. Abdomen is soft and nontender. No GI complaint. I will discuss the case with Dr. Lloyd and check and see if agree that RBC scan may be helpful. Pradeep Hodges MD RD/MODAutumn /[id number]
[2019-04-28] MEDS: LORAZEPAM 1 MG TAB PO SCH (21:07)
[2019-04-28] MEDS: SERTRALINE HCL 50 MG TAB PO SCH (21:07)
[2019-04-29] VITALS (8 sets, daily range): BP systolic 100–124; BP diastolic 56–74
[2019-04-29] MEDS: HC ACETATE/PRAMOXINE HCL 10 GM FOAM RC SCH ×3 (05:04→21:52)
[2019-04-29 06:41] LABS: INR 1.25; PROTHROMBIN TIME 16.3 seconds (11.9-14.5)
--- NOTE | 2019-04-29 07:15 | NUR ---
PATIENT IN BED RESTING WITH EYES CLOSED, NO DISTRESS NOTED. TELEMETRY BOX IN PLACE. BED I N LOWER POSITION, CALL LIGHT AT REACH.
[2019-04-29] MEDS: PANTOPRAZOLE 40 MG 10ML VIAL IV SCH (08:54)
[2019-04-29] MEDS ORDERED: HEPARIN SOD (PORCINE) 1000 UNIT/ML 30ML ONE (09:00)
[2019-04-29] MEDS: MULTIVITAMINS/MINERALS TAB PO SCH (09:00)
--- NOTE | 2019-04-29 12:54 | NUR ---
MD IN TO SEE PATIENT, NO NEW ORDER RECEIVED.
--- NOTE | 2019-04-29 14:28 | Progress Note ---
DATE: 04/29/2019 SUBJECTIVE: No change overall. OBJECTIVE: GENERAL: He is hemodynamically stable. VITAL SIGNS: Afebrile, temperature 98, blood pressure 117/65. LABORATORY DATA: His hemoglobin 9.6, hematocrit 32. ASSESSMENT AND PLAN: We ordered RBC nuclear medicine scan. Also, he is receiving treatment for internal hemorrhoid and according to his nurse staff he may be due for hemorrhoidectomy by Dr. Easton Lloyd. Nothing to add from GI standpoint today. Pradeep Hodges MD RD/MODL /[id number]
--- NOTE | 2019-04-29 16:30 | NUR ---
PATIENT OFF UNIT TO NUCLEAR MEDICINE.
--- NOTE | 2019-04-29 18:45 | NUR ---
PATIENT BACK TO UNIT FROM NUCLEAR MEDICINE.
--- NOTE | 2019-04-29 19:07 | Diagnostic Imaging Report ---
Tagged-RBC GI Bleed Study Clinical information: 58-year-old female with rectal bleeding x 5 days. History of small bowel obstruction s/p surgery 01/23/2019 and subsequent infection. Discussion: The patient's own red blood cells were labeled with 27,4 mCi of technetium-99m pertechnetate using the in vitro method (UltraTag). Dynamic images of the abdomen were obtained through 60 minutes. The spleen is markedly enlarged. Otherwise, distribution of tracer activity appears physiologic throughout the abdomen. No abnormal accumulation of tracer is seen within the gastrointestinal lumen. Impression: 1. No scan evidence of active gastrointestinal bleeding at this time. 2. Splenomegaly with tip of spleen below the iliac crest. Signed by: Dr. Jenna Ramirez M.D. on 04/29/2019 7:04 PM
--- NOTE | 2019-04-29 19:21 | NUR ---
Bed side shift report taken from morning Rn.having dinner .family member at bed side.
[2019-04-29] MEDS: LORAZEPAM 1 MG TAB PO SCH (21:52)
[2019-04-29] MEDS: SERTRALINE HCL 50 MG TAB PO SCH (21:52)
--- NOTE | 2019-04-29 23:44 | NUR ---
Resting in the bed.no pain voiced.family member at bed side.bed locked and in lowest position.phone and call light within reach.instructed to call for assistance as needed.
[2019-04-30] VITALS (7 sets, daily range): BP systolic 117–129; BP diastolic 62–68
[2019-04-30] MEDS: HC ACETATE/PRAMOXINE HCL 10 GM FOAM RC SCH ×3 (06:16→21:18)
[2019-04-30 06:20] LABS: BASOPHILS % 0.4 % (0.0-1.0); EOSINOPHILS # (AUTO) 0.2 (0.0-0.4); EOSINOPHILS % 2.2 % (0.0-6.0); HEMATOCRIT 31.9 % (38.2-49.6); HEMOGLOBIN 9.4 g/dL (14.0-18.0); LYMPHOCYTES # (AUTO) 0.9 (1.0-3.2); LYMPHOCYTES % 11.7 % (18.0-39.1); MEAN CORPUSCULAR HEMOGLOBIN 21.6 pg (28-32); MEAN CORPUSCULAR HGB CONC 29.5 g/dL (31-35); MEAN CORPUSCULAR VOLUME 73.2 fL (81-99); MONOCYTES # (AUTO) 0.7 (0.2-0.8); NEUTROPHILS # (AUTO) 5.7 (2.1-6.9); NEUTROPHILS % 76.2 % (38.7-80.0); PLATELET COUNT 302 x10e3/uL (140-360); RED BLOOD COUNT 4.36 x10e6/uL (4.3-5.7); RED CELL DISTRIBUTION WIDTH 18.7 % (11.7-14.4)
[2019-04-30 06:40] LABS: ANION GAP 10.9 mmol/L (8-16); BLOOD UREA NITROGEN 15 mg/dL (7-26); BUN/CREATININE RATIO 19 (6-25); CALCIUM 8.6 mg/dL (8.4-10.2); CARBON DIOXIDE 21 mmol/L (22-29); CHLORIDE 115 mmol/L (98-107); EST GLOMERULAR FILTRATION RATE > 60 ML/MIN (60-); GLUCOSE 117 mg/dL (74-118); SODIUM 144 mmol/L (136-145)
[2019-04-30 06:57] LABS: POTASSIUM 2.9 mmol/L (3.5-5.1)
--- NOTE | 2019-04-30 07:06 | NUR ---
Bed side shift report given to the oncoming Rn.stable condition.
[2019-04-30] MEDS ORDERED: POTASSIUM CHLORIDE 20 MEQ TAB CR PO NR (08:00)
[2019-04-30] MEDS ORDERED: POTASSIUM CHLORIDE 20MEQ/100ML 100 ML IV ONE ×2 (08:00→10:15)
--- NOTE | 2019-04-30 08:02 | NUR ---
Call back from Dr. Moura and orders to replace KCL both parenteral and po, orders in place.
[2019-04-30] MEDS: PANTOPRAZOLE 40 MG 10ML VIAL IV SCH (08:21)
[2019-04-30] MEDS: MULTIVITAMINS/MINERALS TAB PO SCH (08:21)
[2019-04-30] MEDS ORDERED: SODIUM CHLORIDE 0.9% 250ML 250 ML ONE ×2 (08:28→12:18)
--- NOTE | 2019-04-30 08:35 | NUR ---
Started potassium infusion at this time, patient OOB and sitting on chair, will monitor.
--- NOTE | 2019-04-30 16:00 | NUR ---
Patient alert and responsive, no resp distress, OOB and ambulated, rounds by hematology today, GI bleed scan negative. Waiting for plan by surgeon, no c/o pains, tolerated potassium infusion x2 riders, will reassess chemistry.
--- NOTE | 2019-04-30 19:00 | NUR ---
Bed side shift report taken from morning Rn.stable condition.
[2019-04-30] MEDS: LORAZEPAM 1 MG TAB PO SCH (21:18)
[2019-04-30] MEDS: SERTRALINE HCL 50 MG TAB PO SCH (21:18)
--- NOTE | 2019-04-30 22:30 | NUR ---
Assessment done.aaox3.ambulatory .voided.no pain voiced.bed locked and in lowest position.phone and call light within reach.instructed to call for assistance as needed.
[2019-05-01] VITALS (8 sets, daily range): BP systolic 113–128; BP diastolic 60–71
[2019-05-01] MEDS: HC ACETATE/PRAMOXINE HCL 10 GM FOAM RC SCH ×3 (05:23→21:01)
[2019-05-01 05:46] LABS: BASOPHILS % 0.6 % (0.0-1.0); EOSINOPHILS # (AUTO) 0.2 (0.0-0.4); EOSINOPHILS % 3.3 % (0.0-6.0); HEMATOCRIT 31.8 % (38.2-49.6); HEMOGLOBIN 9.6 g/dL (14.0-18.0); LYMPHOCYTES % 13.2 % (18.0-39.1); MEAN CORPUSCULAR HEMOGLOBIN 22.1 pg (28-32); MEAN CORPUSCULAR HGB CONC 30.2 g/dL (31-35); MEAN CORPUSCULAR VOLUME 73.1 fL (81-99); MONOCYTES # (AUTO) 0.6 (0.2-0.8); MONOCYTES % 8.5 % (4.4-11.3); NEUTROPHILS # (AUTO) 5.3 (2.1-6.9); PLATELET COUNT 271 x10e3/uL (140-360); RED BLOOD COUNT 4.35 x10e6/uL (4.3-5.7); RED CELL DISTRIBUTION WIDTH 18.7 % (11.7-14.4)
[2019-05-01 06:07] LABS: BLOOD UREA NITROGEN 13 mg/dL (7-26); BUN/CREATININE RATIO 17 (6-25); CALCIUM 8.6 mg/dL (8.4-10.2); CARBON DIOXIDE 20 mmol/L (22-29); CHLORIDE 113 mmol/L (98-107); CREATININE, SERUM 0.76 mg/dL (0.72-1.25); EST GLOMERULAR FILTRATION RATE > 60 ML/MIN (60-); GLUCOSE 88 mg/dL (74-118); SODIUM 142 mmol/L (136-145)
--- NOTE | 2019-05-01 06:50 | NUR ---
Bed side shift report given to the oncoming rn.stable condition.
--- NOTE | 2019-05-01 06:51 | NUR ---
walking rounds completed with night shift supervisor rn; pt in stable condition, will continue to monitor.
[2019-05-01] MEDS ORDERED: SODIUM CHLORIDE 0.9% 500ML 500 ML ONE (08:37)
[2019-05-01] MEDS: MULTIVITAMINS/MINERALS TAB PO SCH (08:50)
[2019-05-01] MEDS: PANTOPRAZOLE 40 MG 10ML VIAL IV SCH (08:50)
[2019-05-01] MEDS ORDERED: POTASSIUM CHLORIDE 20MEQ/100ML 300 ML IV ONE (09:00)
[2019-05-01] MEDS ORDERED: POTASSIUM CHLORIDE 20 MEQ TAB CR PO ONE (11:00)
[2019-05-01] MEDS ORDERED: POTASSIUM CHLORIDE 20MEQ/100ML 100 ML IV ONE (11:30)
--- NOTE | 2019-05-01 13:07 | NUR ---
pt being taken to OR; left in stable condition.
[2019-05-01] MEDS ORDERED: LIDOCAINE HCL 1% LOCAL INJ 20 ML VIAL ONE (13:43)
[2019-05-01] MEDS ORDERED: LIDOCAINE HCL 2% 30 ML TUBE ONE (13:43)
[2019-05-01] MEDS ORDERED: BUPIVACAINE LIPOSOME/PF 266 MG/20 ML IJ ONE (13:43)
[2019-05-01] MEDS ORDERED: BUPIVACAINE 0.25%/EPI 30ML SDV INJ ONE (13:43)
[2019-05-01] MEDS ORDERED: ACETAMINOPHEN 1000 MG/100 ML IV PRN (14:45)
[2019-05-01] MEDS ORDERED: HYDROCODONE/APAP 7.5MG-325MG 1 EA TAB PO PRN (14:45)
[2019-05-01] MEDS ORDERED: HYDROMORPHONE 1MG/1ML INJ IV PRN (14:45)
[2019-05-01] MEDS ORDERED: ONDANSETRON HCL INJ 2MG/ML 2ML 2 MG/ML VIAL IV PRN (14:45)
--- NOTE | 2019-05-01 17:52 | Operative Report ---
DATE OF PROCEDURE: 05/01/2019 SURGEON: Easton Lloyd MD PREOPERATIVE DIAGNOSIS: Bleeding internal hemorrhoids. POSTOPERATIVE DIAGNOSIS: Bleeding internal hemorrhoids. OPERATION PERFORMED: Internal hemorrhoidal ligation. ANESTHESIA: General. COMPLICATIONS: None. DESCRIPTION OF PROCEDURE: With the patient lying in bed in the lithotomy position under good general anesthesia, the perineum was prepped with Hibiclens solution and draped in the usual manner. A complete anorectal block was then performed with 0.25% Marcaine with epinephrine and 1% Xylocaine. After this was done, examination revealed the expected 3 large hemorrhoidal groups. The group that had been doing the bleeding was the one from the 8 o'clock position. There was another one at 12 and another one at 4. All 3 internal hemorrhoidal groups were ligated in similar fashion, were ligated in the base of the hemorrhoid with 0 chromic suture and further oversewing the internal component with the same 0 chromic suture. All 3 groups were done the same way. The external components were left alone since this was being known strictly for bleeding issues. A Gelfoam pack impregnated with Xylocaine was placed. A dressing was applied. The sponge, lap, and needle count was correct. The patient tolerated the procedure well and returned to the recovery room in stable condition. Easton Lloyd MD JLR/MODL /[id number]
[2019-05-01] MEDS ORDERED: FENTANYL CITRATE/PF 100MCG/2 ML INJ ONE (18:50)
[2019-05-01] MEDS ORDERED: LIDOCAINE HCL 2% LOCAL INJ 5 ML SDV VIAL INJ ONE (18:51)
[2019-05-01] MEDS ORDERED: ONDANSETRON HCL INJ 2MG/ML 2ML 2 MG/ML VIAL ONE (18:51)
[2019-05-01] MEDS ORDERED: SEVOFLURANE INHAL SOLN 250 ML PEN BTL ONE (18:51)
[2019-05-01] MEDS ORDERED: PROPOFOL IV EMULSION 10 MG/ML 20 ML VIAL ONE (18:51)
[2019-05-01] MEDS ORDERED: CEFOXITIN SOD 1 GM VIAL ONE (18:51)
--- NOTE | 2019-05-01 19:00 | NUR ---
Received patient awake in bed, alert, not in distress, at the bedside, call light within easy reach, advised to call for assistance anytime when needed. Will continue to monitor
[2019-05-01] MEDS: CEFOXITIN 1GM/ D5W 50ML 50 ML IV SCH (20:00)
[2019-05-01] MEDS: SODIUM CHLORIDE 0.9% 1000ML 1,000 ML IV SCH (20:00)
[2019-05-01] MEDS: LORAZEPAM 1 MG TAB PO SCH (20:59)
[2019-05-01] MEDS: SERTRALINE HCL 50 MG TAB PO SCH (21:00)
--- NOTE | 2019-05-01 21:18 | Progress Note ---
DATE: 05/01/2019 His RBC scan came back negative. Dr. Lloyd performed hemorrhoid ligation. CBC continued to be steady. Nothing to add from GI standpoint. Pradeep Hodges MD RD/CYNTHIA /[id number]
[2019-05-02] VITALS (10 sets, daily range): BP systolic 106–130; BP diastolic 57–75
[2019-05-02] MEDS: CEFOXITIN 1GM/ D5W 50ML 50 ML IV SCH (01:31)
[2019-05-02] MEDS: HC ACETATE/PRAMOXINE HCL 10 GM FOAM RC SCH ×3 (05:02→21:13)
[2019-05-02] MEDS: SODIUM CHLORIDE 0.9% 1000ML 1,000 ML IV SCH ×2 (05:16→19:21)
--- NOTE | 2019-05-02 06:33 | NUR ---
walking rounds done with RN, call light within easy reach.
[2019-05-02] MEDS: PANTOPRAZOLE 40 MG 10ML VIAL IV SCH (08:29)
[2019-05-02] MEDS: MULTIVITAMINS/MINERALS TAB PO SCH (08:29)
[2019-05-02] MEDS: BISMUTH SUBSALICYLATE 262 MG/15 ML 8OZ BTL PO PRN ×3 (13:57→21:13)
--- NOTE | 2019-05-02 14:54 | NUR ---
called pharmacy to request proctofoam, pharmacy is currently out and will order for delivery tomorrow.
[2019-05-02 15:23] LABS: INR 1.21; PROTHROMBIN TIME 15.9 seconds (11.9-14.5)
[2019-05-02] MEDS ORDERED: WARFARIN SOD 2 MG TAB PO SCH (17:00)
[2019-05-02] MEDS ORDERED: WARFARIN SOD 3 MG TAB PO SCH (17:00)
[2019-05-02] MEDS: SERTRALINE HCL 50 MG TAB PO SCH (20:30)
[2019-05-02] MEDS: LORAZEPAM 1 MG TAB PO SCH (20:30)
--- NOTE | 2019-05-02 20:30 | NUR ---
PATIENT IN STABLE CONDITION, NO SIGNS OF RESPIRATORY DISTRESS NOTED. PATIENT VOICES NO PAIN AT THIS TIME AND IS AWAITING A NEW ABDOMINAL BINDER. IV FLUIDS ARE RUNNING AT ORDERED RATE AND PATIENT VOICES LIQUID STOOLS. BED IN LOWEST POSITION, BOTH SIDE RAILS ARE UP, CALL LIGHT WITHIN REACH, WILL CONTINUE TO MONITOR.
[2019-05-03] MEDS: SODIUM CHLORIDE 0.9% 1000ML 1,000 ML IV SCH (03:31)
[2019-05-03 04:00] VITALS: BP 120/57
[2019-05-03] MEDS: HC ACETATE/PRAMOXINE HCL 10 GM FOAM RC SCH (06:35)
--- NOTE | 2019-05-03 07:00 | NUR ---
RECEIVED AM REPORT AND AM ROUNDS DONE. PT IS ALERT RESTING IN BED, NO S/S OF DISTRESS. CALL LIGHT WITHIN REACH AND INSTRUCTED PT TO CALL NURSE FOR HELP. IS AT THE BEDSIDE
[2019-05-03 08:00] VITALS: BP 111/65
[2019-05-03] MEDS: MULTIVITAMINS/MINERALS TAB PO SCH (09:00)
[2019-05-03] MEDS: PANTOPRAZOLE 40 MG 10ML VIAL IV SCH (09:00)
[2019-05-03 09:44] VITALS: BP 111/65
--- NOTE | 2019-05-03 10:57 | NUR ---
PT STATES THAT HE WANTS TO SPEAK WITH HIS DOCTOR, AND HE WANTS TO GO HOME. PAGED DR. JETER AND WAITING FOR CALLBACK
[2019-05-03 11:50] VITALS: BP 115/63
== END 2019-05-03 12:50 | disposition home or self-care (01) | DRG 348 ==
LOC: ER 14:28 → ERHOLD 17:10 → MED/SURG3 18:50 → OBSVTOIN 04-28 11:08
PROC: 06LY3CC Occlusion of Hemorrhoidal Plexus with Extraluminal Device, Percutaneous Approach (ICD-10-PCS; principal; 2019-05-01 13:00)
DX: K64.8 Other hemorrhoids (principal); E44.0 Moderate protein-calorie malnutrition; Z68.1 Body mass index [BMI] 19.9 or less, adult; D62 Acute posthemorrhagic anemia; E87.6 Hypokalemia; D63.8 Anemia in other chronic diseases classified elsewhere; K74.60 Unspecified cirrhosis of liver; E78.5 Hyperlipidemia, unspecified; J44.9 Chronic obstructive pulmonary disease, unspecified; Z79.01 Long term (current) use of anticoagulants; Z98.0 Intestinal bypass and anastomosis status; E88.09 Other disorders of plasma-protein metabolism, not elsewhere classified; R77.1 Abnormality of globulin; D50.0 Iron deficiency anemia secondary to blood loss (chronic)
CPT/HCPCS: 36415; 71045; 74176; 78278; 80048; 80053; 81001; 83690; 83735; 84132; 85025; 85610; 93005; 99284; A9512; G0378; J0694; J1100; J1200; J1644; J1750; J2001; J2405; J3010; J3430; J3480; J7030; J7040; J7050

== ENCOUNTER 2019-08-09 08:52 | Emergency (ER) | payer OTHER ==
[~2019-08-09] VITALS: Ht 167.6 cm; Wt 56.7 kg
[~2019-08-09 08:52] MED LIST changes: +ATIVAN1 MG; +MEGESTROL400 MG/10 PO; +MULTI-VITAMIN1 EACH; +SERTRALINE HCL50 MG PO; +SUPER B COMPLE1 EACH
[2019-08-09] MEDS ORDERED: SODIUM CHLORIDE 0.9% 1000ML 500 ML IV STA (09:08)
[2019-08-09] MEDS ORDERED: SODIUM CHLORIDE 0.9% 1000ML 1,000 ML IV STA (09:08)
[2019-08-09 09:34] LABS: BASOPHILS # (AUTO) 0.1 (0.0-0.1); BASOPHILS % 0.6 % (0.0-1.0); EOSINOPHILS # (AUTO) 0.2 (0.0-0.4); EOSINOPHILS % 2.3 % (0.0-6.0); HEMATOCRIT 40.8 % (38.2-49.6); HEMOGLOBIN 12.7 g/dL (14.0-18.0); LYMPHOCYTES # (AUTO) 1.1 (1.0-3.2); LYMPHOCYTES % 12.1 % (18.0-39.1); MEAN CORPUSCULAR HGB CONC 31.1 g/dL (31-35); MEAN CORPUSCULAR VOLUME 80.2 fL (81-99); MONOCYTES # (AUTO) 0.6 (0.2-0.8); MONOCYTES % 7.3 % (4.4-11.3); NEUTROPHILS # (AUTO) 6.7 (2.1-6.9); NEUTROPHILS % 77.2 % (38.7-80.0); PLATELET COUNT 360 x10e3/uL (140-360); RED BLOOD COUNT 5.09 x10e6/uL (4.3-5.7); RED CELL DISTRIBUTION WIDTH 19.3 % (11.7-14.4)
--- NOTE | 2019-08-09 09:50 | Diagnostic Imaging Report ---
EXAM: CHEST SINGLE (PORTABLE) DATE: 08/09/2019 9:08 AM INDICATION: Headache COMPARISON: 04/27/2019 FINDINGS: The trachea is midline. The lungs are symmetrically expanded without evidence for large focal consolidation, pneumothorax, or significant pleural effusion. The cardiac mediastinal silhouette is stable in appearance. No acute osseous abnormality is identified. The surrounding soft tissues are unremarkable. IMPRESSION: No acute cardiopulmonary process identified. Signed by: Dr. Stan Villatoro MD on 08/09/2019 9:48 AM
[2019-08-09 09:53] LABS: ALANINE AMINOTRANSFERASE 58 IU/L (0-55); ALBUMIN 3.3 g/dL (3.5-5.0); ALBUMIN/GLOBULIN RATIO 0.9 (0.8-2.0); ALKALINE PHOSPHATASE 267 IU/L (40-150); ANION GAP 11.8 mmol/L (8-16); BLOOD UREA NITROGEN 15 mg/dL (7-26); BUN/CREATININE RATIO 14 (6-25); CALCIUM 8.5 mg/dL (8.4-10.2); CARBON DIOXIDE 25 mmol/L (22-29); CHLORIDE 107 mmol/L (98-107); CREATINE KINASE 8 IU/L (30-200); CREATININE, SERUM 1.04 mg/dL (0.72-1.25); EST GLOMERULAR FILTRATION RATE > 60 ML/MIN (60-); GLUCOSE 81 mg/dL (74-118); LIPASE 13 U/L (8-78); MAGNESIUM 1.7 MG/DL (1.3-2.1); POTASSIUM 3.8 mmol/L (3.5-5.1); SODIUM 140 mmol/L (136-145)
[2019-08-09 10:12] LABS: THYROID STIMULATING HORMONE 6.563 uIU/mL (0.350-4.940)
--- NOTE | 2019-08-09 11:41 | Diagnostic Imaging Report ---
Exam: Head CT without contrast History: Headache, hypotension Comparison studies: Head CT 05/03/2013 Technique: Axial images were obtained from the skull base to the vertex. Coronal and sagittal images reconstructed from the axial data. Dose modulation, iterative reconstruction, and/or weight based adjustment of the mA/kV was utilized to reduce the radiation dose to as low as reasonably achievable. Radiation dose: Total DLP: 921 mGy*cm. Estimated effective dose: DLP x 0.015 Intravenous contrast: None Findings: Scalp: No abnormalities. Bones: No fractures, blastic or lytic lesions. Brain sulci: Appropriate for age. Ventricles: Normal in size and configuration. No hydrocephalus. Extra-axial spaces: No masses, no fluid collection. Parenchyma: No mass, acute hemorrhage or acute or chronic cortical insults. Scattered hypodensities in the supratentorial white matter are nonspecific but are most compatible with chronic microvascular ischemic changes. Sellar/suprasellar region: No abnormalities. Craniocervical junction: Patent foramen magnum. No Chiari one malformation. Incidental findings: Atherosclerotic calcifications in the carotid siphons. IMPRESSION: 1. No acute intracranial abnormalities. 2. Scattered supratentorial chronic microvascular ischemic changes. 3. No significant changes from the prior head CT 05/11/2013. Signed by: Dr. Anthony Patton M.D. on 08/09/2019 11:39 AM
[2019-08-09 12:35] LABS: BILIRUBIN,URINE NEGATIVE (NEGATIVE); CLARITY,URINE CLEAR (CLEAR); COLOR,URINE YELLOW (YELLOW); KETONES,URINE NEGATIVE (NEGATIVE); LEUKOCYTE ESTERASE ,URINE NEGATIVE (NEGATIVE); NITRITE,URINE NEGATIVE (NEGATIVE); PROTEIN,URINE DIPSTICK NEGATIVE (NEGATIVE); URINE UROBILINOGEN 0.2 mg/dL (0.2 - 1)
[2019-08-09 12:45] LABS: BACTERIA,URINE RARE /HPF; EPITHELIAL CELLS,URINE RARE /LPF; WBC,URINE (MAN) 0-5 /HPF (0-5)
[2019-08-09 12:46] LABS: CALCIUM OXALATE CRYSTALS,UR MANY (FEW)
== END 2019-08-09 13:00 | disposition home or self-care (01) ==
LOC: ER 08:52
DX: G44.89 Other headache syndrome (principal); I95.9 Hypotension, unspecified; E03.9 Hypothyroidism, unspecified; I25.10 Atherosclerotic heart disease of native coronary artery without angina pectoris; I25.2 Old myocardial infarction; Z79.01 Long term (current) use of anticoagulants; Z91.041 Radiographic dye allergy status
CPT/HCPCS: 36415; 70450; 71045; 80053; 81001; 82140; 82550; 82553; 83605; 83690; 83735; 83880; 84443; 84484; 85025; 87086; 93005; 99284; J7030

== ENCOUNTER 2020-07-08 14:18 | Emergency (ER) | payer BC ==
[~2020-07-08] VITALS: Ht 167.6 cm; Wt 54.9 kg
[2020-07-08] MEDS ORDERED: LEVOTHYROXINE88 MCG PO (14:55)
[2020-07-08] MEDS ORDERED: BENEPROTEIN1 EACH (14:55)
[2020-07-08] MEDS ORDERED: ONDANSETRON HCL INJ 2MG/ML 2ML 2 MG/ML VIAL IV STA (14:55)
[2020-07-08] MEDS ORDERED: SODIUM CHLORIDE 0.9% 1000ML 1,000 ML IV STA (14:58)
[2020-07-08] MEDS ORDERED: FAMOTIDINE 20 MG/2 ML VIAL IV STA (14:58)
[2020-07-08] MEDS ORDERED: METHYLPREDNISOLONE SOD SUCC 125 MG/2ML VIAL IV ONE (15:00)
[2020-07-08] MEDS ORDERED: SODIUM CHLORIDE FLUSH 10 ML SYR INJ PRN (15:00)
[2020-07-08] MEDS ORDERED: CYCLOBENZAPRINE HCL 10 MG TAB PO ONE (15:00)
[2020-07-08] MEDS ORDERED: SODIUM CHLORIDE 0.9% 50ML 50 ML ONE (15:09)
[2020-07-08] MEDS ORDERED: IOPAMIDOL 370 MG/ML 200 ML INFUS..BTL INJ ONE (15:10)
[2020-07-08] MEDS ORDERED: ONDANSETRON HCL INJ 2MG/ML 2ML 2 MG/ML VIAL ONE (15:26)
[2020-07-08] MEDS ORDERED: CYCLOBENZAPRINE HCL 10 MG TAB ONE (15:26)
[2020-07-08] MEDS ORDERED: FAMOTIDINE 20 MG/2 ML VIAL IV ONE (15:26)
[2020-07-08] MEDS ORDERED: METHYLPREDNISOLONE SOD SUCC 125 MG/2ML VIAL ONE (15:26)
[2020-07-08] MEDS ORDERED: SODIUM CHLORIDE 0.9% 1000ML 1,000 ML ONE (15:26)
[2020-07-08] MEDS ORDERED: FLOMAX0.4 MG PO (18:23)
[2020-07-08] MEDS ORDERED: ONDANSETRON ODT8 MG PO (18:23)
[2020-07-08] MEDS ORDERED: ULTRAM50 MG PO (18:23)
[2020-07-08] MEDS ORDERED: MAGNESIUM CITR296 ML PO (18:26)
[2020-07-08] MEDS ORDERED: COLACE100 MG PO (18:26)
[2020-07-08 18:58] VITALS: BP 130/78
== END 2020-07-08 18:54 | disposition home or self-care (01) ==
LOC: FSED 14:30
DX: M54.5 Low back pain (principal); N20.1 Calculus of ureter; N28.9 Disorder of kidney and ureter, unspecified; K59.00 Constipation, unspecified; K74.60 Unspecified cirrhosis of liver; E78.5 Hyperlipidemia, unspecified; K21.9 Gastro-esophageal reflux disease without esophagitis; D64.9 Anemia, unspecified; E03.9 Hypothyroidism, unspecified; Z98.0 Intestinal bypass and anastomosis status
CPT/HCPCS: 74176; 80048; 80076; 81003; 85025; 85610; 99283; J2405; J2930; J7030; Q9967

== ENCOUNTER → 2020-08-20 | Outpatient (CLI) | payer BC ==
[~2020-08-20] MED LIST changes: +BENEPROTEIN1 EACH; +COLACE100 MG PO; +FLOMAX0.4 MG PO; +LEVOTHYROXINE88 MCG PO; +MAGNESIUM CITR296 ML PO; +ONDANSETRON ODT8 MG PO; +ULTRAM50 MG PO
== END ==
LOC: RAD 13:05
PROVIDERS: ATTEND Urology
DX: N20.0 Calculus of kidney (principal)
CPT/HCPCS: 74018

== ENCOUNTER → 2020-11-07 | Outpatient (CLI) | payer BC | LOC: CT 15:39 | PROVIDERS: ATTEND Urology | DX: N20.1 Calculus of ureter (principal) | CPT/HCPCS: 74176 ==

== ENCOUNTER → 2020-11-27 | Outpatient (CLI) | payer BC ==
[2020-11-27 13:08] LABS: ALBUMIN 3.7 g/dL (3.5-5.0); ALBUMIN/GLOBULIN RATIO 1.2 (0.8-2.0); ANION GAP 13.2 mmol/L (8-16); CALCIUM 8.2 mg/dL (8.4-10.2); CREATININE, SERUM 1.52 mg/dL (0.72-1.25); POTASSIUM 4.2 mmol/L (3.5-5.1)
== END ==
LOC: US 10:17
PROVIDERS: ATTEND Internal Medicine Hepatology
DX: K76.0 Fatty (change of) liver, not elsewhere classified (principal)
CPT/HCPCS: 36415; 76700; 80053; 82977; 93975

== ENCOUNTER → 2021-03-11 | Outpatient (CLI) | payer BC | LOC: RAD 10:58 | PROVIDERS: ATTEND Urology | DX: N20.0 Calculus of kidney (principal) | CPT/HCPCS: 74018 ==

== ENCOUNTER → 2021-06-16 | Outpatient (CLI) | payer BC | LOC: RAD 12:21 | PROVIDERS: ATTEND Urology | DX: N20.0 Calculus of kidney (principal) | CPT/HCPCS: 74018 ==

== ENCOUNTER → 2021-08-08 | Outpatient (CLI) | payer MEDICARE, BC | LOC: CT 07:17 | PROVIDERS: ATTEND Urology | DX: N20.0 Calculus of kidney (principal) | CPT/HCPCS: 74176 ==

== ENCOUNTER → 2021-11-19 | Outpatient (CLI) | payer MEDICARE, BC | LOC: EDSTATUS 08:19 → RAD 08:20 | PROVIDERS: ATTEND Urology | DX: N20.2 Calculus of kidney with calculus of ureter (principal) | CPT/HCPCS: 74018 ==

== ENCOUNTER → 2022-01-16 | Day surgery (SDC) | payer MEDICARE, BC ==
[2022-01-15 08:44] LABS: BASOPHILS # (AUTO) 0.1 (0.0-0.1); BASOPHILS % 1.3 % (0.0-1.0); EOSINOPHILS # (AUTO) 0.2 (0.0-0.4); EOSINOPHILS % 3.5 % (0.0-6.0); HEMATOCRIT 35.6 % (38.2-49.6); LYMPHOCYTES # (AUTO) 0.7 (1.0-3.2); LYMPHOCYTES % 13.3 % (18.0-39.1); MEAN CORPUSCULAR HEMOGLOBIN 25.8 pg (28-32); MEAN CORPUSCULAR HGB CONC 30.9 g/dL (31-35); MEAN CORPUSCULAR VOLUME 83.4 fL (81-99); MONOCYTES # (AUTO) 0.3 (0.2-0.8); MONOCYTES % 6.3 % (4.4-11.3); NEUTROPHILS # (AUTO) 4.1 (2.1-6.9); NEUTROPHILS % 75.2 % (38.7-80.0); PLATELET COUNT 255 x10e3/uL (140-360); RED BLOOD COUNT 4.27 x10e6/uL (4.3-5.7); RED CELL DISTRIBUTION WIDTH 19.5 % (11.7-14.4)
[2022-01-15 09:05] LABS: ALBUMIN 3.2 g/dL (3.5-5.0); ALBUMIN/GLOBULIN RATIO 0.9 (0.8-2.0); ANION GAP 11.2 mmol/L (8-16); CALCIUM 7.9 mg/dL (8.4-10.2); CREATININE, SERUM 1.6 mg/dL (0.72-1.25); POTASSIUM 4.2 mmol/L (3.5-5.1)
[~2022-01-16] MED LIST changes: -ATIVAN1 MG; +ATIVAN1 MG PO; +FENTANYL CITRATE/PF 100MCG/2 ML INJ ONE; +LIDOCAINE HCL 2% LOCAL INJ 5 ML SDV VIAL INJ ONE; +MIDAZOLAM HCL 2 MG/2 ML VIAL ONE; +POVIDONE IODINE 0.05% 0.05 % ML PO ONE; +PROPOFOL IV EMULSION 10 MG/ML 20 ML VIAL ONE
[2022-01-16 07:51] LABS: INR 1.32; PROTHROMBIN TIME 17.5 seconds (11.9-14.5)
[2022-01-16 07:52] LABS: PARTIAL THROMBOPLASTIN TIME 39.3 seconds (23.8-35.5)
[2022-01-16 10:00] VITALS: BP 100/65
== END | disposition home or self-care (01) ==
LOC: OR 07:21
PROVIDERS: ATTEND Surgery
DX: K29.50 Unspecified chronic gastritis without bleeding (principal); K74.60 Unspecified cirrhosis of liver; I85.10 Secondary esophageal varices without bleeding; I86.4 Gastric varices; K20.90 Esophagitis, unspecified without bleeding; K55.069 Acute infarction of intestine, part and extent unspecified; K76.6 Portal hypertension; K21.9 Gastro-esophageal reflux disease without esophagitis; K64.8 Other hemorrhoids; E03.9 Hypothyroidism, unspecified; M54.9 Dorsalgia, unspecified; G47.00 Insomnia, unspecified; R00.1 Bradycardia, unspecified; E78.5 Hyperlipidemia, unspecified; F41.9 Anxiety disorder, unspecified; Z91.041 Radiographic dye allergy status; Z01.810 Encounter for preprocedural cardiovascular examination; Z01.812 Encounter for preprocedural laboratory examination; Z01.818 Encounter for other preprocedural examination; Z20.822 Contact with and (suspected) exposure to COVID-19; Z79.01 Long term (current) use of anticoagulants; Z79.899 Other long term (current) drug therapy
CPT/HCPCS: 0223U; 36415 ×2; 43235; 45378; 71046; 80053; 85025; 85610; 85730; 93005; J2001; J2250; J2704; J3010

== ENCOUNTER → 2022-01-30 | Outpatient (CLI) | payer MEDICARE, BC ==
[~2022-01-30] MED LIST changes: -FENTANYL CITRATE/PF 100MCG/2 ML INJ ONE; -LIDOCAINE HCL 2% LOCAL INJ 5 ML SDV VIAL INJ ONE; -MIDAZOLAM HCL 2 MG/2 ML VIAL ONE; -POVIDONE IODINE 0.05% 0.05 % ML PO ONE; -PROPOFOL IV EMULSION 10 MG/ML 20 ML VIAL ONE
== END ==
LOC: DX 11:52
DX: M85.88 Other specified disorders of bone density and structure, other site (principal)
CPT/HCPCS: 77080

== ENCOUNTER → 2022-07-15 | Day surgery (SDC) | payer MEDICARE, BC ==
[~2022-07-15] MED LIST changes: +BUPIVACAINE 0.5%/EPI 30 ML SDV INJ ONE; +EPHEDRINE SULFATE INJ 50 MG/ML VIAL ONE; +FENTANYL CITRATE/PF 100MCG/2 ML INJ ONE; +LIDOCAINE HCL 2% LOCAL INJ 5 ML SDV VIAL INJ ONE; +MIDAZOLAM HCL 2 MG/2 ML VIAL ONE; +ONDANSETRON HCL INJ 2MG/ML 2ML 2 MG/ML VIAL ONE; +POVIDONE IODINE 0.05% 0.05 % ML PO ONE; +PROPOFOL IV EMULSION 10 MG/ML 20 ML VIAL ONE; +PROPRANOLOL HCL10 MG PO; +SEVOFLURANE INHAL SOLN 250 ML PEN BTL ONE; +VITAMIN C1000 MG PO
[2022-07-15 07:38] LABS: BASOPHILS # (AUTO) 0.1 (0.0-0.1); BASOPHILS % 1.2 % (0.0-1.0); EOSINOPHILS # (AUTO) 0.4 (0.0-0.4); EOSINOPHILS % 5.6 % (0.0-6.0); HEMOGLOBIN 11.6 g/dL (14.0-18.0); LYMPHOCYTES % 15.2 % (18.0-39.1); MEAN CORPUSCULAR HEMOGLOBIN 24.3 pg (28-32); MEAN CORPUSCULAR VOLUME 83.7 fL (81-99); MONOCYTES # (AUTO) 0.5 (0.2-0.8); NEUTROPHILS # (AUTO) 4.6 (2.1-6.9); NEUTROPHILS % 69.7 % (38.7-80.0); PLATELET COUNT 319 x10e3/uL (140-360); RED BLOOD COUNT 4.78 x10e6/uL (4.3-5.7); RED CELL DISTRIBUTION WIDTH 18.2 % (11.7-14.4)
[2022-07-15 07:51] LABS: INR 2.34; PROTHROMBIN TIME 25.8 seconds (11.9-14.5)
[2022-07-15 07:52] LABS: PARTIAL THROMBOPLASTIN TIME 47.2 seconds (23.8-35.5)
[2022-07-15 08:02] LABS: ALBUMIN 3.3 g/dL (3.5-5.0); ALBUMIN/GLOBULIN RATIO 0.9 (0.8-2.0); ANION GAP 12.5 mmol/L (8-16); CALCIUM 8.3 mg/dL (8.4-10.2); CREATININE, SERUM 1.54 mg/dL (0.72-1.25); POTASSIUM 4.5 mmol/L (3.5-5.1)
[2022-07-15 12:00] VITALS: BP 116/73
== END | disposition home or self-care (01) ==
LOC: OR 07:34
PROVIDERS: ATTEND Surgery
DX: S30.851A Superficial foreign body of abdominal wall, initial encounter (principal); K76.0 Fatty (change of) liver, not elsewhere classified; N20.0 Calculus of kidney; N28.9 Disorder of kidney and ureter, unspecified; X58.XXXA Exposure to other specified factors, initial encounter; Z91.041 Radiographic dye allergy status; Z01.810 Encounter for preprocedural cardiovascular examination; Z01.818 Encounter for other preprocedural examination; Z79.01 Long term (current) use of anticoagulants; Z79.899 Other long term (current) drug therapy
CPT/HCPCS: 10120 ×3; 36415; 71046; 80053; 85025; 85610; 85730; 93005; J2001; J2250; J2405; J2704; J3010

== ENCOUNTER → 2022-09-24 | Outpatient (CLI) | payer MEDICARE, BC ==
[~2022-09-24] MED LIST changes: -BUPIVACAINE 0.5%/EPI 30 ML SDV INJ ONE; -EPHEDRINE SULFATE INJ 50 MG/ML VIAL ONE; -FENTANYL CITRATE/PF 100MCG/2 ML INJ ONE; -LIDOCAINE HCL 2% LOCAL INJ 5 ML SDV VIAL INJ ONE; -MIDAZOLAM HCL 2 MG/2 ML VIAL ONE; -ONDANSETRON HCL INJ 2MG/ML 2ML 2 MG/ML VIAL ONE; -POVIDONE IODINE 0.05% 0.05 % ML PO ONE; -PROPOFOL IV EMULSION 10 MG/ML 20 ML VIAL ONE; -SEVOFLURANE INHAL SOLN 250 ML PEN BTL ONE
== END ==
LOC: CT 09:15
PROVIDERS: ATTEND Urology
DX: N20.0 Calculus of kidney (principal); K74.60 Unspecified cirrhosis of liver; K80.20 Calculus of gallbladder without cholecystitis without obstruction; R16.1 Splenomegaly, not elsewhere classified
CPT/HCPCS: 74176

== ENCOUNTER → 2024-03-09 | Outpatient (REF) | payer MEDICARE ==
[~2024-03-09] MED LIST changes: +COREG3.125 MG PO; +CORICIDIN HBP1 EAC1 PO
== END ==
LOC: US 13:37
PROVIDERS: ATTEND Family Medicine Adult Medicine
DX: R06.02 Shortness of breath (principal); R19.09 Other intra-abdominal and pelvic swelling, mass and lump; R16.1 Splenomegaly, not elsewhere classified
CPT/HCPCS: 71046; 76700

== ENCOUNTER 2024-03-12 18:26 | Inpatient (IN) | payer MEDICARE ==
[~2024-03-12] VITALS: Ht 167.6 cm; Wt 59.4 kg
[2024-03-12 18:33] VITALS: TEMP 98.7
[2024-03-12 19:11] LABS: BASOPHILS # (AUTO) 0.1 (0.0-0.1); BASOPHILS % 0.8 % (0.0-1.0); EOSINOPHILS # (AUTO) 0.2 (0.0-0.4); EOSINOPHILS % 3.6 % (0.0-6.0); HEMATOCRIT 31.7 % (38.2-49.6); HEMOGLOBIN 9.7 g/dL (14.0-18.0); LYMPHOCYTES # (AUTO) 0.8 (1.0-3.2); LYMPHOCYTES % 13.2 % (18.0-39.1); MEAN CORPUSCULAR HEMOGLOBIN 28.2 pg (28-32); MEAN CORPUSCULAR HGB CONC 30.6 g/dL (31-35); MEAN CORPUSCULAR VOLUME 92.2 fL (81-99); MONOCYTES # (AUTO) 0.4 (0.2-0.8); MONOCYTES % 5.9 % (4.4-11.3); NEUTROPHILS # (AUTO) 4.6 (2.1-6.9); NEUTROPHILS % 76.2 % (38.7-80.0); PLATELET COUNT 232 x10e3/uL (140-360); RED BLOOD COUNT 3.44 x10e6/uL (4.3-5.7); WHITE BLOOD COUNT 6.06 x10e3/uL (4.8-10.8)
[2024-03-12 19:20] LABS: AMPHETAMINES SCREEN,URINE NEGATIVE (NEGATIVE); BENZODIAZEPINES SCREEN,URINE NEGATIVE (NEGATIVE); BILIRUBIN,URINE NEGATIVE (NEGATIVE); CANNABINOIDS SCREEN,URINE NEGATIVE (NEGATIVE); CLARITY,URINE CLOUDY (CLEAR); COLOR,URINE STRAW (YELLOW); GLUCOSE, URINE NEGATIVE (NEGATIVE); KETONES,URINE NEGATIVE (NEGATIVE); LEUKOCYTE ESTERASE ,URINE 1+ (NEGATIVE); METHADONE SCREEN, URINE NEGATIVE (NEGATIVE); NITRITE,URINE NEGATIVE (NEGATIVE); OPIATES SCREEN,URINE NEGATIVE (NEGATIVE); PH,URINE 6.5 (5 - 7); PHENCYCLIDINE SCREEN,URINE NEGATIVE (NEGATIVE); PROTEIN,URINE DIPSTICK 1+ (NEGATIVE); URINE UROBILINOGEN 0.2 mg/dL (0.2 - 1)
[2024-03-12 19:27] LABS: ALANINE AMINOTRANSFERASE 73 IU/L (0-55); ALBUMIN 2.7 g/dL (3.5-5.0); ALBUMIN/GLOBULIN RATIO 0.8 (0.8-2.0); ALKALINE PHOSPHATASE 125 IU/L (40-150); ANION GAP 14.9 mmol/L (8-16); BILIRUBIN,TOTAL 1.2 mg/dL (0.2-1.2); BLOOD UREA NITROGEN 21 mg/dL (7-26); BUN/CREATININE RATIO 12 (6-25); CALCIUM 7.8 mg/dL (8.4-10.2); CARBON DIOXIDE 23 mmol/L (22-29); CHLORIDE 106 mmol/L (98-107); CREATINE KINASE 16 IU/L (30-200); CREATININE, SERUM 1.74 mg/dL (0.72-1.25); EST GLOMERULAR FILTRATION RATE 43 ML/MIN (>=60); GLUCOSE 110 mg/dL (74-118); POTASSIUM 3.9 mmol/L (3.5-5.1); SODIUM 140 mmol/L (136-145); TOTAL PROTEIN 6.1 g/dL (6.5-8.1)
[2024-03-12 19:34] LABS: TROPONIN I < 0.001 ng/mL (0-0.300)
[2024-03-12 19:35] LABS: B-TYPE NATRIURETIC PEPTIDE2 269.5 pg/mL (0-100)
[2024-03-12 19:37] LABS: BACTERIA,URINE MODERATE /HPF; EPITHELIAL CELLS,URINE FEW /LPF; RBC,URINE >50 /HPF (0-5)
[2024-03-12] MEDS ORDERED: ONDANSETRON HCL INJ 2MG/ML 2ML 2 MG/ML VIAL IV PRN (20:30)
[2024-03-12] MEDS ORDERED: Morphine 4mg INJECTION 4 MG/ML INJ IV PRN (20:30)
[2024-03-12] MEDS: SODIUM CHLORIDE 0.9% 1000ML 1,000 ML IV SCH (21:09)
[2024-03-12] MEDS: RIFAXIMIN 550 MG TABLET PO SCH (21:09)
[2024-03-12 22:00] VITALS: PULSE 57; RESP 14
[2024-03-12 22:18] VITALS: BP 126/66; PULSE 51; RESP 18; TEMP 99.1; O2SAT 100
[2024-03-12 22:30] VITALS: BP 126/66; PULSE 51; RESP 18; TEMP 99.1; O2SAT 100
[2024-03-13] VITALS (8 sets, daily range): BP systolic 101–128; BP diastolic 57–77; PULSE 54–62; RESP 17–18; TEMP 97.7–98.9; O2SAT 99–100
[2024-03-13 05:39] LABS: BASOPHILS % 0.9 % (0.0-1.0); EOSINOPHILS # (AUTO) 0.2 (0.0-0.4); EOSINOPHILS % 4.1 % (0.0-6.0); HEMOGLOBIN 9.2 g/dL (14.0-18.0); LYMPHOCYTES # (AUTO) 0.6 (1.0-3.2); LYMPHOCYTES % 14.6 % (18.0-39.1); MEAN CORPUSCULAR HEMOGLOBIN 28.3 pg (28-32); MEAN CORPUSCULAR HGB CONC 30.7 g/dL (31-35); MEAN CORPUSCULAR VOLUME 92.3 fL (81-99); MONOCYTES # (AUTO) 0.3 (0.2-0.8); MONOCYTES % 6.4 % (4.4-11.3); NEUTROPHILS # (AUTO) 3.2 (2.1-6.9); NEUTROPHILS % 73.5 % (38.7-80.0); PLATELET COUNT 204 x10e3/uL (140-360); RED BLOOD COUNT 3.25 x10e6/uL (4.3-5.7); RED CELL DISTRIBUTION WIDTH 15.6 % (11.7-14.4); WHITE BLOOD COUNT 4.38 x10e3/uL (4.8-10.8)
[2024-03-13 05:59] LABS: INR 2.25; PROTHROMBIN TIME 25.9 seconds (11.9-14.5)
[2024-03-13 06:09] LABS: ALBUMIN 2.6 g/dL (3.5-5.0); ALBUMIN/GLOBULIN RATIO 0.8 (0.8-2.0); ANION GAP 12.7 mmol/L (8-16); BILIRUBIN,TOTAL 1.3 mg/dL (0.2-1.2); CALCIUM 7.9 mg/dL (8.4-10.2); CREATININE, SERUM 1.66 mg/dL (0.72-1.25); POTASSIUM 3.7 mmol/L (3.5-5.1); TOTAL PROTEIN 5.8 g/dL (6.5-8.1)
[2024-03-13 06:29] LABS: CREATINE KINASE 13 IU/L (30-200)
[2024-03-13 06:31] LABS: TROPONIN I < 0.001 ng/mL (0-0.300)
[2024-03-13] MEDS: PANTOPRAZOLE SODIUM 20 MG TABLET.DR PO ONE (09:10)
[2024-03-13] MEDS: FOLIC ACID 1 MG TAB PO SCH (09:10)
[2024-03-13] MEDS: WARFARIN SOD 2.5 MG TAB PO ONE (09:10)
[2024-03-13] MEDS: SPIRONOLACTONE 25 MG TAB PO SCH (09:10)
[2024-03-13] MEDS: FUROSEMIDE 40 MG TAB PO SCH (09:11)
[2024-03-13] MEDS: LACTULOSE SYRUP 20 GM/30 ML UDC PO SCH (09:11)
[2024-03-13 09:41] LABS: FREE T4 (FREE THYROXINE) 1.12 ng/dL (0.8-1.8); THYROID STIMULATING HORMONE 3.905 uIU/mL (0.350-4.940)
[2024-03-13] MEDS: SUCRALFATE 1 GM TAB PO SCH (12:21)
[2024-03-13 18:27] LABS: CREATINE KINASE 12 IU/L (30-200); TROPONIN I < 0.001 ng/mL (0-0.300)
[2024-03-13] MEDS: TAMSULOSIN HCL 0.4 MG CAP PO SCH (20:35)
[2024-03-14] VITALS (9 sets, daily range): BP systolic 102–129; BP diastolic 55–78; PULSE 51–58; RESP 14–20; TEMP 97.3–98.4; O2SAT 98–100
[2024-03-14 04:42] LABS: BASOPHILS % 0.9 % (0.0-1.0); EOSINOPHILS # (AUTO) 0.2 (0.0-0.4); EOSINOPHILS % 4.8 % (0.0-6.0); HEMATOCRIT 30.9 % (38.2-49.6); HEMOGLOBIN 9.4 g/dL (14.0-18.0); LYMPHOCYTES # (AUTO) 0.7 (1.0-3.2); LYMPHOCYTES % 16.2 % (18.0-39.1); MEAN CORPUSCULAR HEMOGLOBIN 28.3 pg (28-32); MEAN CORPUSCULAR HGB CONC 30.4 g/dL (31-35); MEAN CORPUSCULAR VOLUME 93.1 fL (81-99); MONOCYTES # (AUTO) 0.3 (0.2-0.8); MONOCYTES % 6.9 % (4.4-11.3); NEUTROPHILS # (AUTO) 3.1 (2.1-6.9); NEUTROPHILS % 70.5 % (38.7-80.0); PLATELET COUNT 217 x10e3/uL (140-360); RED BLOOD COUNT 3.32 x10e6/uL (4.3-5.7); RED CELL DISTRIBUTION WIDTH 15.8 % (11.7-14.4); WHITE BLOOD COUNT 4.33 x10e3/uL (4.8-10.8)
[2024-03-14 05:02] LABS: ALBUMIN 2.6 g/dL (3.5-5.0); ALBUMIN/GLOBULIN RATIO 0.9 (0.8-2.0); ANION GAP 13.3 mmol/L (8-16); BILIRUBIN,TOTAL 1.1 mg/dL (0.2-1.2); CALCIUM 7.7 mg/dL (8.4-10.2); CREATININE, SERUM 1.98 mg/dL (0.72-1.25); TOTAL PROTEIN 5.6 g/dL (6.5-8.1)
[2024-03-14 05:03] LABS: % IRON SATURATION 24 % (15-50); IRON 56 ug/dL (65-175); TOTAL IRON BINDING CAPACITY 235 ug/dL (261-478); TRANSFERRIN 168 mg/dL (174-364)
[2024-03-14 05:06] LABS: POTASSIUM 3.3 mmol/L (3.5-5.1)
[2024-03-14] MEDS: LEVOTHYROXINE SODIUM 100 MCG TAB PO SCH (05:09)
[2024-03-14] MEDS ORDERED: CALCIUM GLUC 1 G/50 ML NACL 50 ML IV ONE (09:30)
[2024-03-14] MEDS: POTASSIUM CHLORIDE 20 MEQ TAB CR PO SCH (11:37)
[2024-03-14] MEDS: WARFARIN SOD 2.5 MG TAB PO ONE (11:37)
[2024-03-15 04:00] VITALS: BP 126/69; PULSE 54; RESP 15; TEMP 98.2; O2SAT 100
[2024-03-15 04:47] LABS: BASOPHILS % 0.7 % (0.0-1.0); EOSINOPHILS # (AUTO) 0.2 (0.0-0.4); HEMATOCRIT 30.5 % (38.2-49.6); HEMOGLOBIN 9.3 g/dL (14.0-18.0); LYMPHOCYTES # (AUTO) 0.8 (1.0-3.2); LYMPHOCYTES % 17.1 % (18.0-39.1); MEAN CORPUSCULAR HEMOGLOBIN 28.4 pg (28-32); MEAN CORPUSCULAR HGB CONC 30.5 g/dL (31-35); MONOCYTES # (AUTO) 0.3 (0.2-0.8); MONOCYTES % 7.5 % (4.4-11.3); NEUTROPHILS # (AUTO) 3.2 (2.1-6.9); PLATELET COUNT 224 x10e3/uL (140-360); RED BLOOD COUNT 3.28 x10e6/uL (4.3-5.7); RED CELL DISTRIBUTION WIDTH 15.7 % (11.7-14.4); WHITE BLOOD COUNT 4.56 x10e3/uL (4.8-10.8)
[2024-03-15 05:07] LABS: ALBUMIN 2.6 g/dL (3.5-5.0); ALBUMIN/GLOBULIN RATIO 0.8 (0.8-2.0); ANION GAP 12.6 mmol/L (8-16); BILIRUBIN,TOTAL 0.8 mg/dL (0.2-1.2); CALCIUM 7.6 mg/dL (8.4-10.2); CREATININE, SERUM 1.85 mg/dL (0.72-1.25); POTASSIUM 3.6 mmol/L (3.5-5.1); TOTAL PROTEIN 5.9 g/dL (6.5-8.1)
[2024-03-15 08:00] VITALS: BP 120/74; PULSE 55; RESP 17; TEMP 98.3; O2SAT 100
[2024-03-15 08:05] VITALS: BP 120/74; PULSE 55; RESP 17; TEMP 98.3; O2SAT 100
[2024-03-15] MEDS ORDERED: XIFAXAN550 MG PO (08:52)
[2024-03-15] MEDS ORDERED: LACTULOSE10 GM/15 M PO (08:52)
[2024-03-15] MEDS ORDERED: CEFDINIR300 MG PO (08:52)
[2024-03-15] MEDS ORDERED: WARFARIN SODIU2.5 MG PO (09:24)
[2024-03-15] MEDS ORDERED: PROPRANOLOL HCL10 MG PO (09:24)
[2024-03-15] MEDS ORDERED: FUROSEMIDE40 MG PO (09:24)
[2024-03-15] MEDS ORDERED: EFFER-K 20 MEQ20 MEQ PO (09:24)
[2024-03-15] MEDS ORDERED: PROTONIX20 MG PO (09:24)
[2024-03-15] MEDS: IRON SUCROSE 100 MG in SODIUM CHLORIDE 0.9% 100 ML IV SCH (10:04)
[2024-03-15 11:56] VITALS: BP 110/69; PULSE 61; RESP 19; TEMP 98.4; O2SAT 100
[2024-03-15] MEDS ORDERED: SPIRONOLACTONE25 MG PO (16:30)
[2024-04-17] MEDS ORDERED: CARVEDILOL3.125 MG PO (09:59)
== END 2024-03-15 18:18 | disposition home or self-care (01) | DRG 441 ==
LOC: ER 18:56 → ERHOLD 20:17 → IMCU 22:07 → MED/SURG 03-14 22:17
PROVIDERS: ADMIT Family Medicine Adult Medicine; ATTEND Family Medicine Adult Medicine
DX: K76.82 Hepatic encephalopathy (principal); K55.059 Acute (reversible) ischemia of intestine, part and extent unspecified; D68.9 Coagulation defect, unspecified; K55.1 Chronic vascular disorders of intestine; K90.829 Short bowel syndrome, unspecified; N39.0 Urinary tract infection, site not specified; R18.8 Other ascites; K76.6 Portal hypertension; K74.69 Other cirrhosis of liver; Z79.01 Long term (current) use of anticoagulants; E03.9 Hypothyroidism, unspecified; E78.5 Hyperlipidemia, unspecified; K52.9 Noninfective gastroenteritis and colitis, unspecified; D50.9 Iron deficiency anemia, unspecified; D63.8 Anemia in other chronic diseases classified elsewhere; N18.30 Chronic kidney disease, stage 3 unspecified; K76.0 Fatty (change of) liver, not elsewhere classified; R31.9 Hematuria, unspecified; Z96.0 Presence of urogenital implants; Z91.041 Radiographic dye allergy status; N40.1 Benign prostatic hyperplasia with lower urinary tract symptoms; Z79.890 Hormone replacement therapy; R06.02 Shortness of breath; R16.1 Splenomegaly, not elsewhere classified
CPT/HCPCS: 36415; 36568; 70450; 70551; 71045; 71046; 74176; 76700; 80053; 80307; 80320; 81001; 82140; 82550; 82607; 82746; 83540; 83880; 84439; 84443; 84466; 84484; 85025; 85045; 85610; 87086; 93005; 95819; 99252; 99284; J0696; J1756; J2543; J7030; J7050

== ENCOUNTER → 2024-04-19 | Day surgery (SDC) | payer MEDICARE ==
[2024-04-17 12:59] LABS: BASOPHILS # (AUTO) 0.1 (0.0-0.1); EOSINOPHILS # (AUTO) 0.3 (0.0-0.4); EOSINOPHILS % 5.2 % (0.0-6.0); HEMATOCRIT 37.5 % (38.2-49.6); HEMOGLOBIN 11.3 g/dL (14.0-18.0); LYMPHOCYTES # (AUTO) 0.7 (1.0-3.2); LYMPHOCYTES % 14.5 % (18.0-39.1); MEAN CORPUSCULAR HEMOGLOBIN 27.3 pg (28-32); MEAN CORPUSCULAR HGB CONC 30.1 g/dL (31-35); MEAN CORPUSCULAR VOLUME 90.6 fL (81-99); MONOCYTES # (AUTO) 0.5 (0.2-0.8); MONOCYTES % 9.1 % (4.4-11.3); NEUTROPHILS # (AUTO) 3.5 (2.1-6.9); NEUTROPHILS % 69.6 % (38.7-80.0); PLATELET COUNT 246 x10e3/uL (140-360); RED BLOOD COUNT 4.14 x10e6/uL (4.3-5.7); RED CELL DISTRIBUTION WIDTH 14.1 % (11.7-14.4); WHITE BLOOD COUNT 5.04 x10e3/uL (4.8-10.8)
[2024-04-17 13:25] LABS: CALCIUM 8.7 mg/dL (8.4-10.2); CREATININE, SERUM 2.26 mg/dL (0.72-1.25)
[2024-04-17 16:36] LABS: URIC ACID 13.6 mg/dL (4.8-8.0)
[~2024-04-19] MED LIST changes: +CARVEDILOL3.125 MG PO; +CEFDINIR300 MG PO; +EFFER-K 20 MEQ20 MEQ PO; +FUROSEMIDE40 MG PO; +LACTULOSE10 GM/15 M PO; +PROTONIX20 MG PO; +SPIRONOLACTONE25 MG PO; +WARFARIN SODIU2.5 MG PO; +XIFAXAN550 MG PO
[2024-04-19] MEDS: GENTAMICIN 80MG/NS 100 ML 200 ML IV ONE (06:31)
[2024-04-19] MEDS: CEFTRIAXONE 1 GM VIAL ONE (06:31)
[2024-04-19] MEDS: LACTATED RINGER'S 1,000 ML ONE (06:31)
[2024-04-19 06:41] LABS: INR 1.65; PROTHROMBIN TIME 20.3 seconds (11.9-14.5)
[2024-04-19 06:42] LABS: PARTIAL THROMBOPLASTIN TIME 38.8 seconds (23.8-35.5)
== END | disposition home or self-care (01) ==
LOC: OR 05:45
PROVIDERS: ATTEND Urology
DX: Z96.0 Presence of urogenital implants (principal); N20.9 Urinary calculus, unspecified; Z01.812 Encounter for preprocedural laboratory examination; Z01.818 Encounter for other preprocedural examination; Z53.8 Procedure and treatment not carried out for other reasons
CPT/HCPCS: 36415 ×2; 74018; 80048; 84550; 85025; 85610; 85730; J0696; J1580; J7121

== ENCOUNTER → 2024-04-24 | Day surgery (SDC) | payer MEDICARE ==
[~2024-04-24] MED LIST changes: +DEXAMETHASONE SOD PHOS INJ 4 MG/ML SDV ONE; +FAMOTIDINE20 MG PO; +FENTANYL CITRATE/PF 100MCG/2 ML INJ ONE; +GLYCOPYRROLATE INJ 0.2 MG/ML VIAL ONE; +IOPAMIDOL 610MG/1ML 300 MG/ML VIAL IV ONE; +LIDOCAINE HCL 2% LOCAL INJ 5 ML SDV VIAL INJ ONE; +ONDANSETRON HCL INJ 2MG/ML 2ML 2 MG/ML VIAL ONE; +PHENAZOPYRIDINE HCL 100 MG TAB ONE; +PHYTONADIONE 10 MG/ML ONE; +PROPOFOL IV EMULSION 10 MG/ML 20 ML VIAL ONE; +SEVOFLURANE INHAL SOLN 250 ML PEN BTL ONE
[2024-04-24] MEDS: LACTATED RINGER'S 1,000 ML ONE (13:54)
[2024-04-24] MEDS: GENTAMICIN 80MG/NS 100 ML 200 ML IV ONE (13:54)
[2024-04-24] MEDS: CEFTRIAXONE 1 GM VIAL ONE (13:54)
[2024-04-24 14:15] LABS: INR 1.61
[2024-04-24 14:16] LABS: PARTIAL THROMBOPLASTIN TIME 39.4 seconds (23.8-35.5)
[2024-04-24] MEDS: PHYTONADIONE 10 MG/ML AMP SQ ONE (14:46)
[2024-04-24 17:28] VITALS: TEMP 97.1
[2024-04-24] MEDS: PHENAZOPYRIDINE HCL 100 MG TAB PO ONE ×2 (17:51)
[2024-04-24 17:55] VITALS: BP 110/70; PULSE 61; RESP 12; O2SAT 100
== END | disposition home or self-care (01) ==
LOC: OR 13:02
PROVIDERS: ATTEND Urology
DX: N20.1 Calculus of ureter (principal); N20.0 Calculus of kidney; Z46.6 Encounter for fitting and adjustment of urinary device; N35.912 Unspecified bulbous urethral stricture, male; N40.0 Benign prostatic hyperplasia without lower urinary tract symptoms; N32.89 Other specified disorders of bladder; I12.9 Hypertensive chronic kidney disease with stage 1 through stage 4 chronic kidney disease, or unspecified chronic kidney disease; N18.30 Chronic kidney disease, stage 3 unspecified; E78.5 Hyperlipidemia, unspecified; D64.9 Anemia, unspecified; I25.10 Atherosclerotic heart disease of native coronary artery without angina pectoris; E03.9 Hypothyroidism, unspecified; K44.9 Diaphragmatic hernia without obstruction or gangrene; R16.1 Splenomegaly, not elsewhere classified; K74.60 Unspecified cirrhosis of liver; Z79.01 Long term (current) use of anticoagulants; Z79.899 Other long term (current) drug therapy; Z86.718 Personal history of other venous thrombosis and embolism
CPT/HCPCS: 36415; 74420; 85610; 85730; 87086; C1769; C2617; J0696; J1100; J1580; J2003; J2405; J3430

== ENCOUNTER → 2024-05-18 | Outpatient (REF) | payer MEDICARE ==
[~2024-05-18] MED LIST changes: -DEXAMETHASONE SOD PHOS INJ 4 MG/ML SDV ONE; -FAMOTIDINE20 MG PO; -FENTANYL CITRATE/PF 100MCG/2 ML INJ ONE; -GLYCOPYRROLATE INJ 0.2 MG/ML VIAL ONE; -IOPAMIDOL 610MG/1ML 300 MG/ML VIAL IV ONE; -LIDOCAINE HCL 2% LOCAL INJ 5 ML SDV VIAL INJ ONE; -ONDANSETRON HCL INJ 2MG/ML 2ML 2 MG/ML VIAL ONE; -PHENAZOPYRIDINE HCL 100 MG TAB ONE; -PHYTONADIONE 10 MG/ML ONE; -PROPOFOL IV EMULSION 10 MG/ML 20 ML VIAL ONE; -SEVOFLURANE INHAL SOLN 250 ML PEN BTL ONE
== END ==
LOC: RAD 10:55
PROVIDERS: ATTEND Urology
DX: N20.0 Calculus of kidney (principal)
CPT/HCPCS: 74018

== ENCOUNTER → 2024-06-09 | Day surgery (SDC) | payer MEDICARE ==
[2024-06-06 11:09] LABS: BASOPHILS % 0.7 % (0.0-1.0); EOSINOPHILS # (AUTO) 0.3 (0.0-0.4); EOSINOPHILS % 5.6 % (0.0-6.0); HEMATOCRIT 33.3 % (38.2-49.6); HEMOGLOBIN 9.9 g/dL (14.0-18.0); LYMPHOCYTES # (AUTO) 0.6 (1.0-3.2); LYMPHOCYTES % 11.6 % (18.0-39.1); MEAN CORPUSCULAR HEMOGLOBIN 27.3 pg (28-32); MEAN CORPUSCULAR HGB CONC 29.7 g/dL (31-35); MONOCYTES # (AUTO) 0.6 (0.2-0.8); MONOCYTES % 11.8 % (4.4-11.3); NEUTROPHILS # (AUTO) 3.7 (2.1-6.9); NEUTROPHILS % 69.7 % (38.7-80.0); PLATELET COUNT 257 x10e3/uL (140-360); RED BLOOD COUNT 3.62 x10e6/uL (4.3-5.7); RED CELL DISTRIBUTION WIDTH 15.8 % (11.7-14.4); WHITE BLOOD COUNT 5.35 x10e3/uL (4.8-10.8)
[2024-06-06 11:27] LABS: ANION GAP 12.3 mmol/L (8-16); CALCIUM 8.3 mg/dL (8.4-10.2); CREATININE, SERUM 1.55 mg/dL (0.72-1.25); POTASSIUM 4.3 mmol/L (3.5-5.1)
[~2024-06-09] MED LIST changes: +DEXAMETHASONE SOD PHOS INJ 4 MG/ML SDV ONE; +EPHEDRINE SULFATE INJ 50 MG/ML VIAL ONE; +FAMOTIDINE20 MG PO; +FENTANYL CITRATE/PF 100MCG/2 ML INJ ONE; +KETOROLAC TROMETHAMINE 30 MG/ML VIAL ONE; +LIDOCAINE HCL 2% LOCAL INJ 5 ML SDV VIAL INJ ONE; +ONDANSETRON HCL INJ 2MG/ML 2ML 2 MG/ML VIAL ONE; +PROPOFOL IV EMULSION 10 MG/ML 20 ML VIAL ONE; +SEVOFLURANE INHAL SOLN 250 ML PEN BTL ONE
[2024-06-09] MEDS: LACTATED RINGER'S 1,000 ML ONE (11:38)
[2024-06-09] MEDS: CEFTRIAXONE 1 GM VIAL ONE (11:38)
[2024-06-09] MEDS: GENTAMICIN 80MG/NS 100 ML 200 ML IV ONE (11:39)
[2024-06-09 12:05] LABS: INR 1.39; PROTHROMBIN TIME 17.8 seconds (11.9-14.5)
[2024-06-09 12:06] LABS: PARTIAL THROMBOPLASTIN TIME 38.5 seconds (23.8-35.5)
[2024-06-09 13:50] VITALS: TEMP 98.7
[2024-06-09] MEDS: PHENAZOPYRIDINE HCL 100 MG TAB ONE (14:05)
[2024-06-09 14:50] VITALS: BP 120/70; PULSE 62; RESP 16; O2SAT 100
== END | disposition home or self-care (01) ==
LOC: OR 10:20
PROVIDERS: ATTEND Urology
DX: N20.0 Calculus of kidney (principal); Z46.6 Encounter for fitting and adjustment of urinary device; N35.812 Other bulbous urethral stricture, male; N13.30 Unspecified hydronephrosis; N21.0 Calculus in bladder; N40.1 Benign prostatic hyperplasia with lower urinary tract symptoms; R35.1 Nocturia; R39.12 Poor urinary stream; I12.9 Hypertensive chronic kidney disease with stage 1 through stage 4 chronic kidney disease, or unspecified chronic kidney disease; N18.30 Chronic kidney disease, stage 3 unspecified; D64.9 Anemia, unspecified; D75.839 Thrombocytosis, unspecified; R00.1 Bradycardia, unspecified; E03.9 Hypothyroidism, unspecified; K74.60 Unspecified cirrhosis of liver; K76.82 Hepatic encephalopathy; N39.0 Urinary tract infection, site not specified; Z91.041 Radiographic dye allergy status; Z01.812 Encounter for preprocedural laboratory examination; Z79.01 Long term (current) use of anticoagulants; Z79.899 Other long term (current) drug therapy; Z86.718 Personal history of other venous thrombosis and embolism
CPT/HCPCS: 36415 ×2; 52352; 74420; 80048; 84550; 85025; 85610; 85730; 88300; C1769; J0696; J1100; J1580; J1885; J2003; J2405; J2704; J3010; J7121